=== PATIENT | male | born 1950 | race Caucasian/White ===

== ENCOUNTER 2016-10-19 14:40 | Inpatient (IN) | payer OTHER ==
[2016-10-19] MEDS ORDERED: SODIUM CHLORIDE 500 ML IV STA ×3 (15:58→18:37)
--- NOTE | 2016-10-19 15:59 | PDOC ---
History of Present Illness - General Chief Complaint: SIRS, Suspected/Possible Stated Complaint: FEVER Time Seen by Provider: 10/19/16 15:09 History Source: Patient Exam Limitations: No Limitations - History of Present Illness Initial Comments: 10/19/16 16:00 Patient is a 66 year old male with history of completely heart block s/p pacemaker, htn, and rheumatic fever here today complaining of fever. He became ill before leaving for [facility] on 09/18. While there, he continued to have fevers and a cough. He went to a hospital in [facility], where he was diagnosed with a pyogenic liver abscess. He was treated with ciprofloxacin PO and ceftriaxone IV for 5 days before leaving [facility] for [place] to be treated. Today, his only direct complaints are cough, fever, chills, nausea, and vomiting. He denies chest pain, abdominal pain, leg pain, hemoptysis and prior clotting problems. The cough was present before his flight to and from [facility] and was never bloody. Past History - Past Medical History Allergies/Adverse Reactions: Allergies Allergy/AdvReac Type Severity Reaction Status Date / Time No Known Allergies Allergy Verified 10/19/16 14:44 Home Medications: Ambulatory Orders Esomeprazole Magnesium 40 mg PO DAILY 10/19/16 Hydroxyzine HCl [Atarax -] 25 mg PO DAILY 10/19/16 Losartan 50Mg/Hctz 12.5MG [Hyzaar -] 1 tab PO DAILY 10/19/16 Omeprazole 20 mg PO DAILY 10/19/16 Cardiac Disorders: Yes GI Disorders: Yes (GERD) HTN: Yes - Surgical History Cardiac Surgery: Yes (PPM , COMPLETE H.BLOCK) - Psycho/Social/Smoking Cessation Hx Anxiety: No Suicidal Ideation: No Smoking History: Never smoked Have you smoked in the past 12 months: Yes Information on smoking cessation initiated: Yes Hx Alcohol Use: No Drug/Substance Use Hx: No Substance Use Type: None Review of Systems - Review of Systems Constitutional: Yes: Chills, Fever, Weakness HEENTM: No: Blurred Vision, Recent change in vision Respiratory: Yes: Cough. No: Shortness of Breath, Hemoptysis Cardiac (ROS): No: Chest Pain, Edema ABD/GI: Yes: Nausea, Vomiting (non-bloody emesis 1 week ago). No: Constipated, Diarrhea : No: Burning, Dysuria Integumentary: Yes: Sweating. No: Pallor Neurological: Yes: Headache, Weakness *Physical Exam - Vital Signs Last Vital Signs Temp Pulse Resp BP Pulse Ox 100.7 F H 132 H 22 132/88 100 10/19/16 14:45 10/19/16 14:45 10/19/16 14:45 10/19/16 14:45 10/19/16 14:45 - Physical Exam Comments: 10/19/16 16:40 Gen: Ill appearing, sitting in wheel chair holding arms around belly with jacket on HEENT: Atraumatic normocephalic, no scleral icterus Skin: No jaundice, rashes CV: Tachycardic, regular, no murmurs rubs, s/p pacemaker Lungs: Clear to auscultation bilaterally, tachypneic Abdomen: Soft, nontender, normal bowel sounds, no rosales's sign Ext: Well perfused, 2+ pulses in lower extremities bilaterally Neuro: Alert, oriented, no focal neuro deficits, CN2-12 intact ED Treatment Course - LABORATORY CBC & Chemistry Diagram: 10/19/16 15:44 10/19/16 15:44 Medical Decision Making - Medical Decision Making 10/19/16 17:14 Patient is a 66M with history of complete HB s/p pacemaker and HTN here today complaining of fever. Vital signs show fever, tachycardia and tachypnea. SIRS and Sepsis criteria met. No chest pain, altered mental status, or abdominal pain. Differential includes: liver abscess, pneumonia, empyema, and pulmonary embolism. Septic workup and CTA chest ordered. 500 ml fluids given. 10/19/16 18:25 Lactate of 4.2, white count elevated. Fluids still running, ordered another 500 ml. Doing 500 ml boluses with frequent reassessment due to patient's home lasix use and history of heart block. Total fluids given 500ml, about half of second 500 ml given. Cr at 1.5. Cr redrawn after fluid bolus. 10/19/16 19:00 Patient signed out to Dr Orta. Deisy to 110, no longer tachypneic. Cr pending. Fluids ordered. *DC/Admit/Observation/Transfer Diagnosis at time of Disposition: Severe sepsis - Attestations Physician Attestion: I, Dr. Gaston Mendoza, attest that this document has been prepared under my direction and personally reviewed by me in its entirety. I further attest, that it accurately reflects all work, treatment, procedures and medical decision -making performed by me.
[2016-10-19] MEDS ORDERED: MAG HYDROX/AL HYDROX/SIMETH 30 ML UNIT-DOSE CUP PO ONE (16:20)
[2016-10-19] MEDS ORDERED: LIDOCAINE VISCOUS 2% ORAL/TOP 20 ML UNIT-DOSE CUP MM ONE (16:20)
[2016-10-19 16:36] LABS: VENOUS PH 7.36 (7.32-7.42)
[2016-10-19 16:37] LABS: VENOUS BLOOD GAS HCO3 27.4 meq/L (19-25)
[2016-10-19] MEDS ORDERED: MAG HYDROX/AL HYDROX/SIMETH 30 ML UNIT-DOSE CUP ONE (16:42)
[2016-10-19 16:48] LABS: BASOPHIL 1.2 % (0-2.0); EOSINOPHIL 0.9 % (0-4.5); MCH 27.8 pg (25.7-33.7); MCHC 32.3 g/dl (32.0-35.9); MEAN CELL VOLUME 86.2 fl (80-96); MEAN PLT VOLUME 7.4 fl (7.5-11.1); PLATELET COUNT 649 K/MM3 (134-434); RDW 14.2 % (11.9-15.9)
[2016-10-19 17:04] LABS: INR 1.27 (0.82-1.09)
[2016-10-19 17:06] LABS: ACTIVATED PTT 32.9 SECONDS (26.9-34.4)
[2016-10-19 17:14] LABS: URINE APPEARANCE CLEAR; URINE BILIRUBIN NEGATIVE (NEGATIVE); URINE BLOOD NEGATIVE (NEGATIVE); URINE COLOR YELLOW; URINE GLUCOSE (UA) NEGATIVE (NEGATIVE); URINE KETONE NEGATIVE (NEGATIVE); URINE LEUK ESTERASE NEGATIVE (NEGATIVE); URINE NITRITE NEGATIVE (NEGATIVE); URINE PROTEIN NEGATIVE (NEGATIVE); URINE UROBILINOGEN NEGATIVE mg/dL (0.2-1.0)
[2016-10-19 17:19] LABS: ALBUMIN 2.3 g/dl (3.4-5.0); ALK PHOS 296 U/L (45-117); ANION GAP 10 (8-16); BILIRUBIN,TOTAL 0.4 mg/dL (0.2-1.0); CO2 26 mmol/L (21-32); CREATININE 1.5 mg/dL (0.7-1.3); GLUCOSE,RANDOM 146 mg/dL (74-106); SGOT/AST 37 U/L (15-37); SGPT/ALT 37 U/L (12-78); TOT PROT 10.4 g/dl (6.4-8.2)
--- NOTE | 2016-10-19 17:37 | PDOC ---
Attending Attestation - Resident Resident Name: Gaston Mendoza - ED Attending Attestation I have performed the following: I have examined & evaluated the patient, The case was reviewed & discussed with the resident, I agree w/resident's findings & plan, Exceptions are as noted - HPI HPI: 10/19/16 17:29 66 yo M h/o PPM due to complete heart block Pt presents to the ER with a complaint of fevers pt was ill prior to traveling to 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 He is unsure if he has had any exposures to any infectious or environmental toxins 10/19/16 17:30 - Physicial Exam PE: 10/19/16 17:37 RRR CTA No chest wall tenderness to palpation no abdominal tenderness to palpation no guarding No rebound no rash - Medical Decision Making 10/19/16 17:38 Will do: Labs CT abd and pelvis (Eval for liver absces) CTA chest IV Fluids Antipyretics Likely admission 10/19/16 17:39 Laboratory Tests 10/19/16 10/19/16 10/19/16 15:44 15:44 15:44 WBC 13.0 H Hgb 11.6 L Hct 36.0 Plt Count 649 H INR 1.27 H VBG pH POC VBG pCO2 POC VBG pO2 Sodium 133 L Potassium 4.2 Chloride 97 L Carbon Dioxide 26 BUN 21 H Creatinine 1.5 H Random Glucose 146 H 10/19/16 16:33 WBC Hgb Hct Plt Count INR VBG pH 7.36 POC VBG pCO2 50.4 POC VBG pO2 15.1 L* Sodium Potassium Chloride Carbon Dioxide BUN Creatinine Random Glucose 10/19/16 17:39 Creatinine slightly elevated will hydrate and re assess Would like to do contrast study 10/19/16 21:56 CT had been down for repairs Pt is FINALLY on the CT table Peripheral IV not working Nurse notified CT demonstrates 9.7cm diameter liver abscess No evidence of PE Will give Zosyn and Flagyl po Admit to hospitalist Discharge Disposition - Diagnosis Severe sepsis, Liver abscess - Discharge Dispostion Condition at time of disposition: Stable Admit: Yes - Referrals - Patient Instructions - Post Discharge Activity
[2016-10-19] MEDS ORDERED: ACETAMINOPHEN 1000 MG/100 ML VIAL (NON FORMULARY) IVPB ONE (17:40)
[2016-10-19 17:52] LABS: TROPONIN I < 0.02 ng/ml (0.00-0.05)
[2016-10-19] MEDS ORDERED: ACETAMINOPHEN INJECTION 100 ML IVPB ONE (17:55)
[2016-10-19 19:00] LABS: ANION GAP 8 (8-16); CALCIUM 7.7 mg/dL (8.5-10.1); CO2 26 mmol/L (21-32); CREATININE 1.3 mg/dL (0.7-1.3); GLUCOSE,RANDOM 99 mg/dL (74-106)
--- NOTE | 2016-10-19 19:05 | PDOC ---
*Physical Exam - Vital Signs Last Vital Signs Temp Pulse Resp BP Pulse Ox 100.7 F H 120 H 16 126/78 98 10/19/16 14:45 10/19/16 17:30 10/19/16 17:30 10/19/16 17:30 10/19/16 17:30 - Physical Exam Comments: 10/19/16 19:56 General Appearance: Nourished. No Apparent Distress HEENT: No Pharyngeal Erythema, Tonsillar Exudate, Tonsillar Erythema Respiratory/Chest: Lungs Clear, Normal Breath Sounds. No Crackles, Rales, Rhonchi, Wheezing Cardiovascular: Regular Rhythm, Regular Rate. No Murmur, Gallop/S3, Gallop/S4 Gastrointestinal/Abdominal: Normal Bowel Sounds, Soft. No Guarding, Rebound, Tenderness, Hepatomegaly, Spleenomegaly Extremity: Normal Capillary Refill. No Coldness, Cyanosis Integumentary: Normal Color, Dry, Warm Neurologic: Fully Oriented, Alert, Normal Mood/Affect, Normal Response ED Treatment Course - LABORATORY CBC & Chemistry Diagram: 10/19/16 15:44 10/19/16 18:23 - ADDITIONAL ORDERS Additional order review: Laboratory Results 10/19/16 10/19/16 10/19/16 16:33 16:17 15:44 INR PTT (Actin FS) VBG pH 7.36 POC VBG pCO2 50.4 POC VBG pO2 15.1 L* Mixed VBG HCO3 27.4 H Sodium Potassium Chloride Carbon Dioxide Anion Gap BUN Creatinine Creat Clearance w eGFR Random Glucose Lactic Acid 4.2 H* Calcium Total Bilirubin AST ALT Alkaline Phosphatase Creatine Kinase 40 Troponin I < 0.02 Total Protein Albumin Urine Color Urine Appearance Urine pH Urine Protein Urine Glucose (UA) Urine Ketones Urine Blood Urine Nitrite Urine Bilirubin Urine Urobilinogen Ur Leukocyte Esterase Blood Type Antibody Screen Spec Expiration Date 10/19/16 10/19/16 10/19/16 15:44 15:44 15:44 INR PTT (Actin FS) VBG pH POC VBG pCO2 POC VBG pO2 Mixed VBG HCO3 Sodium 133 L Potassium 4.2 Chloride 97 L Carbon Dioxide 26 Anion Gap 10 BUN 21 H Creatinine 1.5 H Creat Clearance w eGFR 47.12 Random Glucose 146 H Lactic Acid Calcium 9.0 Total Bilirubin 0.4 AST 37 ALT 37 Alkaline Phosphatase 296 H Creatine Kinase Troponin I Total Protein 10.4 H Albumin 2.3 L Urine Color Yellow Urine Appearance Clear Urine pH 5.0 Urine Protein Negative Urine Glucose (UA) Negative Urine Ketones Negative Urine Blood Negative Urine Nitrite Negative Urine Bilirubin Negative Urine Urobilinogen Negative Ur Leukocyte Esterase Negative Blood Type Cancelled Antibody Screen Cancelled Spec Expiration Date Cancelled 10/19/16 15:44 INR 1.27 H PTT (Actin FS) 32.9 VBG pH POC VBG pCO2 POC VBG pO2 Mixed VBG HCO3 Sodium Potassium Chloride Carbon Dioxide Anion Gap BUN Creatinine Creat Clearance w eGFR Random Glucose Lactic Acid Calcium Total Bilirubin AST ALT Alkaline Phosphatase Creatine Kinase Troponin I Total Protein Albumin Urine Color Urine Appearance Urine pH Urine Protein Urine Glucose (UA) Urine Ketones Urine Blood Urine Nitrite Urine Bilirubin Urine Urobilinogen Ur Leukocyte Esterase Blood Type Antibody Screen Spec Expiration Date 10/19/16 15:44 RBC 4.18 MCV 86.2 MCHC 32.3 RDW 14.2 MPV 7.4 L Neutrophils % 74.0 Lymphocytes % 15.3 Monocytes % 8.6 Eosinophils % 0.9 Basophils % 1.2 - Medications Given in the ED: ED Medications Discontinued Medications Generic Name Dose Route Start Last Admin Trade Name Kgq PRN Reason Stop Dose Admin Acetaminophen 1,000 mg 10/19/16 17:40 10/19/16 18:06 Ofirmev Injection - IVPB 10/19/16 17:41 1,000 mg ONCE ONE Administration Al Hydroxide/Mg Hydroxide 30 ml 10/19/16 16:20 10/19/16 16:49 Mylanta Oral Suspension - PO 10/19/16 16:21 30 ml ONCE ONE Administration Sodium Chloride 500 mls @ 500 mls/hr 10/19/16 15:58 10/19/16 16:13 Normal Saline - IV 10/19/16 16:57 500 mls/hr ASDIR STA Administration Sodium Chloride 500 mls @ 500 mls/hr 10/19/16 17:28 10/19/16 17:31 Normal Saline - IV 10/19/16 18:27 500 mls/hr ASDIR STA Administration Lidocaine HCl 20 ml 10/19/16 16:20 10/19/16 16:50 Xylocaine 2% Viscous Oral - MM 10/19/16 16:21 20 ml ONCE ONE Administration Progress Note - Progress Note Progress Note: Received sign out from Dr. Mendoza. Patient is a 66 year old male with a history of heart block s/p pacemaker who presents with severe sepsis. Patient had recent travel to [facility] where he was seen at a hospital and was reportedly diagnosed with a pyogenic abscess in the liver. He has currently been getting 500 ml boluses of NS with clinical improvement. Lactate was elevated and WBC was elevated here in the ED. He is currently pending a CTA of the chest and CT abdomen/pelvis. He had an elevated creatinine and as long as his repeat creatinine is lower than 1.5, he can go to CT. If his repeat creatinine is 1.5 or higher, he is to receive another 500ml bolus of fluids. Continue to reassess after fluid boluses. Medical Decision Making - Medical Decision Making 10/19/16 19:25 Patient's repeat lactate improved to 1.8 after fluid boluses. Patient looks clinically improved. Patient's repeat creatinine is improved to 1.3. CT is aware and will bring the patient for his scans when ready. 10/20/16 01:51 CT scan preliminary read showed a 9.7 cm amebic abscess in the right lobe of the liver. Will admit to the hospital for treatment. We will give flagyl to cover for the possibility of an amebic abscess and will give zosyn to cover possibility of a pyogenic abscess. *DC/Admit/Observation/Transfer Diagnosis at time of Disposition: Severe sepsis, Liver abscess - Discharge Dispostion Condition at time of disposition: Stable - Referrals - Attestations Physician Attestion: 10/20/16 01:54 I, Dr. Jeremy Orta, attest that this document has been prepared under my direction and personally reviewed by me in its entirety. I further attest, that it accurately reflects all work, treatment, procedures and medical decision -making performed by me.
--- NOTE | 2016-10-20 00:01 | HP ---
CHIEF COMPLAINT: fevers PCP: Dr. Padron Cardiology: dr. Alexander HISTORY OF PRESENT ILLNESS: 66 yr old man c/o fevers and malaise for past month. Arrived from [facility] after being treated for fevers and liver abscess since September 19-. He was last in usual state of health approx September 14 when he felt "ill" (unable to describe in detail what "ill" meant). He began to have fevers on September 16 and flew to [facility] on the . He began to have fevers, cough and right upper chest pain. He was admitted to a hospital with fevers of 41-42deg Celsius on September 20. He was found to have lesions in his liver on CT scan that were thought to be pyogenic liver abscesses. He was treated with IV cefatriaxone 1 g, (copies of hospital labs and discharge note in chart). He says his fevers always escalated at 5pm after being low-grade all day, it would continue climbing and was unaffected with tylenol. His right upper chest pain was sharp, nonradiating, able to pinpoint, worse with cough/sneeze/hiccup. Cough was initially dry and then would be scantily productive of white nonbloody sputum. Since September 14 his appetite has been poor, and he feels that he lost 8-9 kgs in the last month. Denies AMS, neurological deficits, n/v, diarrhea/constipation, changes in diet/ new foods, new exposures, recent farm animal exposure, no hx of previous episodes, recent abx use. He was an active person, able to job 8-9km daily last year, until the pacemaker was placed. approx one month ago he developed b/l lower extremity for which his PCP started him on hyzaar. ER course was notable for: (1) abdominal CT - read by adelaida as amebic abscess (2) chest CT - no caviitary lesions (3) leucocytosis/lactic acidosis Recent Travel: [facility] September 18-October 19, visited [place] jan 05 2016, [place] for 4-5 months recently. 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 moved [place] in [place]. 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 Smoking: >40 yrs 2-3 cigs per day Alcohol: socially, no hx of abuse/seizure/withdrawal DT's, last drink september 14 Drugs: denies Family History: father and paternal uncle with BPH, father due to renal failure from BPH. no family hx of TB Allergies No Known Allergies Allergy (Verified 10/19/16 14:44) HOME MEDICATIONS: Home Medications Medication Instructions Recorded Esomeprazole Magnesium 40 mg PO DAILY 10/19/16 Hydroxyzine HCl [Atarax -] 25 mg PO DAILY 10/19/16 Losartan 50Mg/Hctz 12.5MG [Hyzaar 1 tab PO DAILY 10/19/16 -] Omeprazole 20 mg PO DAILY 10/19/16 REVIEW OF SYSTEMS CONSTITUTIONAL: Present: fever,generalized weakness, loss of appetite,weight change Absent: chills, diaphoresis, malaise, HEENT: Absent: rhinorrhea, nasal congestion, throat pain, throat swelling, difficulty swallowing, mouth swelling, ear pain, eye pain, visual changes CARDIOVASCULAR: Absent: chest pain, syncope, palpitations, lightheadedness, peripheral edema RESPIRATORY: Present: cough, Absent: shortness of breath, dyspnea with exertion, orthopnea, wheezing, stridor , hemoptysis GASTROINTESTINAL: Absent: abdominal pain, abdominal distension, nausea, vomiting, diarrhea, constipation, melena, hematochezia GENITOURINARY: Absent: dysuria, frequency, urgency, hesitancy, hematuria, flank pain, genital pain MUSCULOSKELETAL: Absent: myalgia, arthralgia, joint swelling, back pain, neck pain SKIN: Present: itching rash on forehead Absent: rash, pallor HEMATOLOGIC/IMMUNOLOGIC: Absent: easy bleeding, easy bruising, lymphadenopathy, frequent infections ENDOCRINE: Absent: unexplained weight gain, unexplained weight loss, heat intolerance, cold intolerance NEUROLOGIC: Absent: headache, focal weakness or paresthesias, dizziness, unsteady gait, seizure, mental status changes, bladder or bowel incontinence PSYCHIATRIC: Absent: anxiety, depression, suicidal or homicidal ideation, hallucinations. PHYSICAL EXAMINATION Vital Signs - 24 hr 10/19/16 10/19/16 14:45 17:30 Temperature 100.7 F H Pulse Rate 132 H Pulse Rate [ 120 H Left Apical] Respiratory 22 16 Rate Blood Pressure 132/88 Blood Pressure 126/78 [Left Arm] O2 Sat by Pulse 100 98 Oximetry (%) GENERAL: Awake, alert, and fully oriented, in no acute distress. HEAD: Normal with no signs of trauma. EYES: Pupils equal, round and reactive to light, extraocular movements intact, sclera anicteric, conjunctiva clear. No lid lag. EARS, NOSE, THROAT: Ears normal, nares patent, oropharynx clear without exudates. Moist mucous membranes. NECK: Normal range of motion, supple without lymphadenopathy, JVD, or masses. LUNGS: Breath sounds equal, clear to auscultation bilaterally. No wheezes, and no crackles. No accessory muscle use. HEART: Regular rate and rhythm, normal S1 and S2 without murmur, rub or gallop. CHEST: left upper chest with palpable pacemaker - skin intact ABDOMEN: Soft, nontender, not distended, normoactive bowel sounds, no guarding, no rebound, no masses. MUSCULOSKELETAL: Normal range of motion at all joints. No bony deformities or tenderness. No CVA tenderness. UPPER EXTREMITIES: 2+ radial pulses, warm, well-perfused. No cyanosis. No clubbing. No peripheral edema. no tapia spots. LOWER EXTREMITIES: 2+ DP pulses, warm, well-perfused. No calf tenderness. No peripheral edema. NEUROLOGICAL: Cranial nerves II-XII intact. Normal speech. Normal gait. PSYCHIATRIC: Cooperative. Good eye contact. Appropriate mood and affect. SKIN: Warm, dry, normal turgor, hyperpigmented(dark brown) macules on forehead with skin intact/no erythema. Laboratory Results - last 24 hr 10/19/16 10/19/16 10/19/16 15:44 15:44 15:44 WBC 13.0 H RBC 4.18 Hgb 11.6 L Hct 36.0 MCV 86.2 MCH 27.8 MCHC 32.3 RDW 14.2 Plt Count 649 H MPV 7.4 L Neutrophils % 74.0 Lymphocytes % 15.3 Monocytes % 8.6 Eosinophils % 0.9 Basophils % 1.2 INR 1.27 H PTT (Actin FS) 32.9 VBG pH POC VBG pCO2 POC VBG pO2 Mixed VBG HCO3 Sodium Potassium Chloride Carbon Dioxide Anion Gap BUN Creatinine Creat Clearance w eGFR Random Glucose Lactic Acid Calcium Total Bilirubin AST ALT Alkaline Phosphatase Creatine Kinase Troponin I Total Protein Albumin Urine Color Yellow Urine Appearance Clear Urine pH 5.0 Ur Specific [place] 1.020 Urine Protein Negative Urine Glucose (UA) Negative Urine Ketones Negative Urine Blood Negative Urine Nitrite Negative Urine Bilirubin Negative Urine Urobilinogen Negative Ur Leukocyte Esterase Negative Blood Type Antibody Screen Spec Expiration Date 10/19/16 10/19/16 10/19/16 15:44 15:44 15:44 WBC RBC Hgb Hct MCV MCH MCHC RDW Plt Count MPV Neutrophils % Lymphocytes % Monocytes % Eosinophils % Basophils % INR PTT (Actin FS) VBG pH POC VBG pCO2 POC VBG pO2 Mixed VBG HCO3 Sodium 133 L Potassium 4.2 Chloride 97 L Carbon Dioxide 26 Anion Gap 10 BUN 21 H Creatinine 1.5 H Creat Clearance w eGFR 47.12 Random Glucose 146 H Lactic Acid 4.2 H* Calcium 9.0 Total Bilirubin 0.4 AST 37 ALT 37 Alkaline Phosphatase 296 H Creatine Kinase Troponin I Total Protein 10.4 H Albumin 2.3 L Urine Color Urine Appearance Urine pH Ur Specific [place] Urine Protein Urine Glucose (UA) Urine Ketones Urine Blood Urine Nitrite Urine Bilirubin Urine Urobilinogen Ur Leukocyte Esterase Blood Type Cancelled Antibody Screen Cancelled Spec Expiration Date Cancelled 10/19/16 10/19/16 10/19/16 16:17 16:33 18:23 WBC RBC Hgb Hct MCV MCH MCHC RDW Plt Count MPV Neutrophils % Lymphocytes % Monocytes % Eosinophils % Basophils % INR PTT (Actin FS) VBG pH 7.36 POC VBG pCO2 50.4 POC VBG pO2 15.1 L* Mixed VBG HCO3 27.4 H Sodium Potassium Chloride Carbon Dioxide Anion Gap BUN Creatinine Creat Clearance w eGFR Random Glucose Lactic Acid 1.8 Calcium Total Bilirubin AST ALT Alkaline Phosphatase Creatine Kinase 40 Troponin I < 0.02 Total Protein Albumin Urine Color Urine Appearance Urine pH Ur Specific [place] Urine Protein Urine Glucose (UA) Urine Ketones Urine Blood Urine Nitrite Urine Bilirubin Urine Urobilinogen Ur Leukocyte Esterase Blood Type Antibody Screen Spec Expiration Date 10/19/16 18:23 WBC RBC Hgb Hct MCV MCH MCHC RDW Plt Count MPV Neutrophils % Lymphocytes % Monocytes % Eosinophils % Basophils % INR PTT (Actin FS) VBG pH POC VBG pCO2 POC VBG pO2 Mixed VBG HCO3 Sodium 134 L Potassium 3.6 Chloride 100 Carbon Dioxide 26 Anion Gap 8 BUN 19 H Creatinine 1.3 Creat Clearance w eGFR Random Glucose 99 D Lactic Acid Calcium 7.7 L Total Bilirubin AST ALT Alkaline Phosphatase Creatine Kinase Troponin I Total Protein Albumin Urine Color Urine Appearance Urine pH Ur Specific [place] Urine Protein Urine Glucose (UA) Urine Ketones Urine Blood Urine Nitrite Urine Bilirubin Urine Urobilinogen Ur Leukocyte Esterase Blood Type Antibody Screen Spec Expiration Date ASSESSMENT/PLAN: 66 yr old man with hx of compelte heart block presents with continuous fevers for one month found to have liver lesions admitted to [facility] for severe sepsis likely due to liver abscesses. #Severe sepsis(wbc, fever, lactic acidosis, leucocytosis) likely due to liver abscess, read on CT as amebic - lactic acidosis resolved - started on zosyn, 3.375gm ivpb q8hr and po flagyl 750mg daily started in ED to broad spec coverage for antibacterial and anti-ambeic - r/o causes of liver abscess: - echinococcus, quantiferon for TB, entamoea histolytica, blood parasite smear for malarial species - r/o HIV (patient consented) - consult IR for possible drainage - pt currently hemodynamically stable with lft's wnl, Gi for further evaluation - ID consult Dr. David #Hyponatremia - likely from poor po intake, improved with IVF #Wide gap between total protein and albumin, consider SPEP work-up for myelodysplastic conditions # normocytic anemia, no overt signs of bleeding, will add anemia work-up for further investigation # LE Edema(no edema currently) - continue Hyzaar (home medication) DVT - SCD's for now, may need surgical intervention defer pharm ac for now Diet: low sodium Visit type - Emergency Visit Emergency Visit: Yes ED Registration Date: 10/19/16 Care time: The patient presented to the Emergency Department on the above date and was hospitalized for further evaluation of their emergent condition. - New Patient This patient is new to me today: Yes Date on this admission: 10/19/16 - Critical Care Critical Care patient: No
[2016-10-20] MEDS ORDERED: metroNIDAZOLE 500 MG TABLET PO ONE (00:17)
[2016-10-20] MEDS ORDERED: PIPERACILLIN/TAZOB 3.375 GM/50 ML PRE-DOCKED IVPB ONE (00:18)
[2016-10-20] MEDS ORDERED: guaiFENesin 200 MG/10 ML 10 ML UNIT-DOSE CUPS PO ONE (01:50)
--- NOTE | 2016-10-20 04:22 | PN ---
Teaching Attending Note Name of Resident: Jaimie Vazquez ATTENDING PHYSICIAN STATEMENT I saw and evaluated the patient. I reviewed chart, data, imaging I reviewed the resident's note and discussed the case with the resident. I agree with the resident's findings and plan as documented except for modifications below SUBJECTIVE: 66yo male originally from [place], c/o fevers and chills x1 month, recent travel to [facility] in September 2016. Admitted to hospital there, and found to have liver abscess which was treated with ceftriaxone and not drained. [place] and saught medical attention as fever has not improved. He has some subjective weight loss and a nonproductive cough. 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 He has a puppy at home. Denied any sick contacts. Denied history of TB or exposure to anyone with TB. OBJECTIVE: Last Vital Signs Temp Pulse Resp BP Pulse Ox 98.8 F 82 18 120/79 99 10/20/16 06:16 10/20/16 06:16 10/20/16 06:16 10/20/16 06:16 10/20/16 06:16 HEENT perrla, AT, NC, moist oral mucosa Neck supple, no masses CV-s1+s2+ RRR Chest- CTA b/l, no wheezing, no crackles Abdomen- soft, NT, no masses appreciated Skin- no rashes LAD- no lymphadenpopathy Laboratory Last Values WBC 9.4 K/mm3 (4.0-10.0) 10/20/16 06:05 RBC 3.59 M/mm3 (4.00-5.60) L 10/20/16 06:05 Hgb 10.0 GM/dL (11.7-16.9) L D 10/20/16 06:05 Hct 30.3 % (35.4-49) L D 10/20/16 06:05 MCV 84.4 fl (80-96) 10/20/16 06:05 MCH 27.9 pg (25.7-33.7) 10/20/16 06:05 MCHC 33.0 g/dl (32.0-35.9) 10/20/16 06:05 RDW 14.3 % (11.9-15.9) 10/20/16 06:05 Plt Count 490 K/MM3 (134-434) H D 10/20/16 06:05 MPV 7.0 fl (7.5-11.1) L 10/20/16 06:05 Neutrophils % 68.2 % (42.8-82.8) 10/20/16 06:05 Lymphocytes % 20.9 % (8-40) D 10/20/16 06:05 Monocytes % 9.0 % (3.8-10.2) 10/20/16 06:05 Eosinophils % 0.8 % (0-4.5) 10/20/16 06:05 Basophils % 1.1 % (0-2.0) 10/20/16 06:05 INR 1.27 (0.82-1.09) H 10/19/16 15:44 PTT (Actin FS) 32.9 SECONDS (26.9-34.4) 10/19/16 15:44 VBG pH 7.36 (7.32-7.42) 10/19/16 16:33 POC VBG pCO2 50.4 mmHg (38-52) 10/19/16 16:33 POC VBG pO2 15.1 mmHg (28-48) L* 10/19/16 16:33 Mixed VBG HCO3 27.4 meq/L (19-25) H 10/19/16 16:33 Sodium 135 mmol/L (136-145) L 10/20/16 06:05 Potassium 3.9 mmol/L (3.5-5.1) 10/20/16 06:05 Chloride 100 mmol/L (98-107) 10/20/16 06:05 Carbon Dioxide 27 mmol/L (21-32) 10/20/16 06:05 Anion Gap 8 (8-16) 10/20/16 06:05 BUN 15 mg/dL (7-18) D 10/20/16 06:05 Creatinine 1.1 mg/dL (0.7-1.3) 10/20/16 06:05 Creat Clearance w eGFR > 60 (>60) 10/20/16 06:05 Random Glucose 94 mg/dL (74-106) 10/20/16 06:05 Lactic Acid 1.8 mmol/L (0.4-2.0) 10/19/16 18:23 Calcium 8.0 mg/dL (8.5-10.1) L 10/20/16 06:05 Total Bilirubin 0.6 mg/dL (0.2-1.0) D 10/20/16 06:05 AST 29 U/L (15-37) D 10/20/16 06:05 ALT 28 U/L (12-78) D 10/20/16 06:05 Alkaline Phosphatase 220 U/L (45-117) H D 10/20/16 06:05 Creatine Kinase 40 IU/L (39-308) 10/19/16 16:17 Troponin I < 0.02 ng/ml (0.00-0.05) 10/19/16 16:17 Total Protein 8.5 g/dl (6.4-8.2) H 10/20/16 06:05 Albumin 1.9 g/dl (3.4-5.0) L 10/20/16 06:05 Urine Color Yellow 10/19/16 15:44 Urine Appearance Clear 10/19/16 15:44 Urine pH 5.0 (5.0-8.0) 10/19/16 15:44 Ur Specific [place] 1.020 (1.005-1.025) 10/19/16 15:44 Urine Protein Negative (NEGATIVE) 10/19/16 15:44 Urine Glucose (UA) Negative (NEGATIVE) 10/19/16 15:44 Urine Ketones Negative (NEGATIVE) 10/19/16 15:44 Urine Blood Negative (NEGATIVE) 10/19/16 15:44 Urine Nitrite Negative (NEGATIVE) 10/19/16 15:44 Urine Bilirubin Negative (NEGATIVE) 10/19/16 15:44 Urine Urobilinogen Negative mg/dL (0.2-1.0) 10/19/16 15:44 Ur Leukocyte Esterase Negative (NEGATIVE) 10/19/16 15:44 Blood Type Cancelled 10/19/16 15:44 Antibody Screen Cancelled 10/19/16 15:44 Spec Expiration Date Cancelled 10/19/16 15:44 ASSESSMENT AND PLAN: #Right hepatic lobe abscess -9.7cm associated with fevers x1 month. Differential diagnosis includes but is not limited to bacterial abscess, entamoeba histolytica, or echinococcosis liver cyst, mycobacterium tuberculosis. S/p zosyn and metronidazole in ER. Should r/o other causes of fever such as tick borne infection, bacteremia. -admit to med/surg -blood cultures x2 -UA, urine culture -blood parasite smear -ecchinococcosis serology -Lyme serology -IR guided drainage of liver abscess, send for bacterial aerobic, anaerobic, fungal, and AFB cultures -ID consult -continue zosyn and metronidazole -send Quantiferon Gold as patient is from [facility] Diet- regular diet DVT ppx- SCDs
[2016-10-20] MEDS ORDERED: TUBERCULIN PPD 5 TU/0.1ML SYRINGE (IN PATIENT USE ONLY) ID ONE (05:10)
[2016-10-20] MEDS ORDERED: metroNIDAZOLE 250 MG TABLET ONE (05:12)
[2016-10-20] MEDS ORDERED: guaiFENesin 200 MG/10 ML 10 ML UNIT-DOSE CUPS ONE (05:12)
[2016-10-20] MEDS ORDERED: PIPERACILLIN/TAZOB 3.375 GM 50 ML IVPB ONE (05:13)
[2016-10-20 06:16] LABS: BASOPHIL 1.1 % (0-2.0); EOSINOPHIL 0.8 % (0-4.5); MCH 27.9 pg (25.7-33.7); MEAN CELL VOLUME 84.4 fl (80-96); NEUTROPHILS 68.2 % (42.8-82.8); PLATELET COUNT 490 K/MM3 (134-434); RDW 14.3 % (11.9-15.9); WHITE BLOOD COUNT 9.4 K/mm3 (4.0-10.0)
[2016-10-20 06:40] LABS: ALBUMIN 1.9 g/dl (3.4-5.0); ALK PHOS 220 U/L (45-117); ANION GAP 8 (8-16); BILIRUBIN,TOTAL 0.6 mg/dL (0.2-1.0); CO2 27 mmol/L (21-32); CREATININE 1.1 mg/dL (0.7-1.3); GLUCOSE,RANDOM 94 mg/dL (74-106); SGOT/AST 29 U/L (15-37); SGPT/ALT 28 U/L (12-78); TOT PROT 8.5 g/dl (6.4-8.2)
--- NOTE | 2016-10-20 11:09 | PN ---
Physical Exam: SUBJECTIVE: Patient seen and examined. He complains of a dry cough. OBJECTIVE: Vital Signs Period Temp Pulse Resp BP Sys/Taylor Pulse Ox Last 24 Hr 98.2 F-99 F 80-84 18-18 120-128/78-79 99-100 GENERAL: The patient is awake, alert, and fully oriented, in no acute distress. NECK: Supple. LUNGS: Breath sounds equal, clear to auscultation bilaterally, no wheezes, no crackles, no accessory muscle use. HEART: Regular rate and rhythm, S1, S2 without murmur, rub or gallop. ABDOMEN: Soft, nontender, nondistended, normoactive bowel sounds, no guarding, no rebound, no hepatosplenomegaly, no masses. EXTREMITIES: 2+ pulses, warm, well-perfused, no edema. Laboratory Results - last 24 hr 10/20/16 10/20/16 06:05 06:05 WBC 9.4 RBC 3.59 L Hgb 10.0 L D Hct 30.3 L D MCV 84.4 MCH 27.9 MCHC 33.0 RDW 14.3 Plt Count 490 H D MPV 7.0 L Neutrophils % 68.2 Lymphocytes % 20.9 D Monocytes % 9.0 Eosinophils % 0.8 Basophils % 1.1 Sodium 135 L Potassium 3.9 Chloride 100 Carbon Dioxide 27 Anion Gap 8 BUN 15 D Creatinine 1.1 Creat Clearance w eGFR > 60 Random Glucose 94 Calcium 8.0 L Total Bilirubin 0.6 D AST 29 D ALT 28 D Alkaline Phosphatase 220 H D Total Protein 8.5 H Albumin 1.9 L Active Medications Generic Name Dose Route Start Last Admin Trade Name Freq PRN Reason Stop Dose Admin HCTZ/Losartan Potassium 1 tab 10/20/16 10:00 Hyzaar - PO DAILY CHRISTEN ASSESSMENT/PLAN: This is a 66-year-old man with a history of rheumatic fever, complete heart block who presented to the ER with fevers x 1 month. 1. Severe sepsis secondary to liver abscess - Zosyn, Flagyl given - Lactic acidemia improved - IR for possible drainage - ID consult - Quantiferon gold, HIV, Echinococcus Ab, parasite smear, Entamoeba Ab ordered 2. Dehydration with mild hyponatremia - Improved with IV fluid 3. Anemia - Check iron studies, B12, folate, TSH 4. HTN - Continue Hyzaar Visit type - Emergency Visit Emergency Visit: Yes ED Registration Date: 10/20/16 Care time: The patient presented to the Emergency Department on the above date and was hospitalized for further evaluation of their emergent condition. - New Patient This patient is new to me today: Yes Date on this admission: 10/20/16 - Critical Care Critical Care patient: No - Discharge Referral Referred to [facility] No
[2016-10-20 11:14] VITALS: BMI 27.1
[2016-10-20] MEDS: guaiFENesin/D-METHORPHAN HB 10 ML UNIT-DOSE CUPS PO PRN ×2 (12:17→20:30)
[2016-10-20 13:13] LABS: HIV 1 & 2 AB NEGATIVE; HIV 1 AGp24 NEGATIVE
--- NOTE | 2016-10-20 13:38 | PN ---
Progress Note (short form) - Note Progress Note: ID consult dictated imp/reccd 66 yo man with fevers since September 16. He travelled to [facility] to visit his daughter on September 18. He continued to have a fevers there with lethargy and weakness- he went to the hospital there and was started on a po antibiotic for four days possibly ciprofloxacin.. this was later changed to ceftriaxone and he was treated daily as an outpt. he continued to have fever. Ct scan was done showing a right lobe heterogeneous mass with samll adjacent lesions felt to be a liver abscess. The patient elected to leave [facility] and flew back to [place] and came directly to the hospital. he has nonproductive cough Ct scan imaging here with 10 by 10 by 13 cm cystic density with several satellite lesions- this was not present on a prior ct scan 01/2016! some weight loss- he is unable to quantitate denies history of TB or TB exposure last travel was several years ago to [facility] he is originally from [facility] ?liver abscess continue zosyn/flagyl amebic serology echinococcal serology quant gold stool ova and parasites GI consult cultures will review ct scan with IR on Saturday elevated total protein- should have HIV test, if negative, screen for Myeloma history of heart block- s/p PPM, check lyme serology d/w Dr Vazquez Problem List - Problems (1) Liver abscess Code(s): K75.0 - ABSCESS OF LIVER (2) Elevated total protein Code(s): R77.8 - OTHER SPECIFIED ABNORMALITIES OF PLASMA PROTEINS
[2016-10-20] MEDS: PIPERACILLIN/TAZOB 4.5 GM/100 ML PRE-DOCKED IVPB SCH ×2 (14:57→18:07)
[2016-10-20] MEDS: METRONIDAZOLE 500 MG PREMIXED 100 ML IVPB SCH ×2 (14:58→18:07)
[2016-10-20] MEDS: LOSARTAN 50MG/HCTZ 12.5MG 1 TAB (FP) PO SCH (18:07)
[2016-10-20] MEDS ORDERED: BENZOCAINE/MENTH/CETYLPYRD CL 1 EACH LOZENGE MM PRN (18:28)
[2016-10-20] MEDS: ACETAMINOPHEN 325 MG TABLET (FP) PO PRN (20:30)
[2016-10-21] MEDS: METRONIDAZOLE 500 MG PREMIXED 100 ML IVPB SCH ×3 (01:10→17:14)
[2016-10-21] MEDS: PIPERACILLIN/TAZOB 4.5 GM/100 ML PRE-DOCKED IVPB SCH ×3 (01:45→17:14)
[2016-10-21 06:15] LABS: BASOPHIL 1.2 % (0-2.0); EOSINOPHIL 2.2 % (0-4.5); MCH 28.3 pg (25.7-33.7); MCHC 33.1 g/dl (32.0-35.9); MEAN CELL VOLUME 85.5 fl (80-96); MEAN PLT VOLUME 7.2 fl (7.5-11.1); NEUTROPHILS 56.9 % (42.8-82.8); PLATELET COUNT 472 K/MM3 (134-434); RDW 14.3 % (11.9-15.9); WHITE BLOOD COUNT 7.2 K/mm3 (4.0-10.0)
[2016-10-21 06:41] LABS: ANION GAP 7 (8-16); CO2 30 mmol/L (21-32); CREATININE 1.2 mg/dL (0.7-1.3); GLUCOSE,RANDOM 84 mg/dL (74-106)
[2016-10-21 06:56] LABS: FERRITIN 711.367 ng/ml (16.4-293.9); THYROID STIMULATING HORMONE 1.94 uIU/ml (0.358-3.74)
[2016-10-21] MEDS ORDERED: PT OWN MED DRAWER 7, Y5N ONE (09:25)
[2016-10-21] MEDS: LOSARTAN 50MG/HCTZ 12.5MG 1 TAB (FP) PO SCH (09:48)
[2016-10-21] MEDS: guaiFENesin/D-METHORPHAN HB 10 ML UNIT-DOSE CUPS PO PRN ×2 (09:48→17:14)
--- NOTE | 2016-10-21 10:19 | PN ---
Physical Exam: SUBJECTIVE: Patient seen and examined No acute events overnight. Patient complaining of fever w/ occasional night sweats, cough, and new onset diarrhea. OBJECTIVE: Vital Signs Period Temp Pulse Resp BP Sys/Taylor Pulse Ox Last 24 Hr 97.1 F-100.5 F 72-107 15-20 105-119/72-82 99-99 GENERAL: Awake, alert, and fully oriented, in no acute distress. HEAD: Normal with no signs of trauma. EYES: Pupils equal, round and reactive to light, extraocular movements intact, sclera anicteric, conjunctiva clear. No lid lag. EARS, NOSE, THROAT: Oropharynx clear without exudates. Moist mucous membranes. NECK: Normal range of motion, supple without lymphadenopathy LUNGS: Breath sounds equal, clear to auscultation bilaterally. No wheezes, and no crackles. No accessory muscle use. HEART: Regular rate and rhythm, normal S1 and S2 without murmur, rub or gallop. ABDOMEN: Soft, nontender, not distended, normoactive bowel sounds, no guarding, no rebound, no masses. UPPER EXTREMITIES: 2+ radial pulses, warm, well-perfused. No cyanosis. No clubbing. No peripheral edema. no tapia spots. LOWER EXTREMITIES: Warm, well-perfused. No calf tenderness. No peripheral edema. NEUROLOGICAL: Cranial nerves II-XII intact. Normal speech. Normal gait. PSYCHIATRIC: Cooperative. Good eye contact. Appropriate mood and affect. Laboratory Results - last 24 hr 10/20/16 10/21/16 10/21/16 11:15 05:20 05:20 WBC RBC Hgb Hct MCV MCH MCHC RDW Plt Count MPV Neutrophils % Lymphocytes % Monocytes % Eosinophils % Basophils % Sodium 135 L Potassium 3.7 Chloride 98 Carbon Dioxide 30 Anion Gap 7 L BUN 13 Creatinine 1.2 Random Glucose 84 Calcium 8.0 L Ferritin 711.367 H Vitamin B12 429 Serum Folate 10 TSH 1.94 HIV 1&2 Antibody Screen Negative HIV P24 Antigen Negative 10/21/16 05:20 WBC 7.2 RBC 3.48 L Hgb 9.8 L Hct 29.8 L MCV 85.5 MCH 28.3 MCHC 33.1 RDW 14.3 Plt Count 472 H MPV 7.2 L Neutrophils % 56.9 Lymphocytes % 23.9 Monocytes % 15.8 H Eosinophils % 2.2 D Basophils % 1.2 Sodium Potassium Chloride Carbon Dioxide Anion Gap BUN Creatinine Random Glucose Calcium Ferritin Vitamin B12 Serum Folate TSH HIV 1&2 Antibody Screen HIV P24 Antigen Active Medications Generic Name Dose Route Start Last Admin Trade Name [place] PRN Reason Stop Dose Admin Acetaminophen 650 mg 10/20/16 18:28 10/20/16 20:30 Tylenol - PO 650 mg Q4H PRN Administration FEVER OR PAIN Benzocaine/Menthol 1 each 10/20/16 18:28 10/21/16 09:48 Cepacol Lozenge - MM 1 each PRN PRN Administration SORE THROAT Guaifenesin 10 ml 10/20/16 11:46 10/21/16 09:48 Robitussin Dm - PO 10 ml Q4H PRN Administration COUGH HCTZ/Losartan Potassium 1 tab 10/20/16 10:00 10/21/16 09:48 Hyzaar - PO 1 tab DAILY CHRISTEN Administration Metronidazole 100 mls @ 100 mls/hr 10/20/16 14:15 10/21/16 09:48 Flagyl 500mg Premixed Ivpb - IVPB 100 mls/hr Q8H-IV CHRISTEN Administration Piperacillin Sod/Tazobactam Sod 4.5 gm 10/20/16 14:15 10/21/16 09:48 Zosyn 4.5gm Ivpb (Pre-Docked) IVPB 4.5 gm Q8H-IV CHRISTEN Administration ASSESSMENT/PLAN: 66 yo M with PMH of complete heart block who presented to the ED with continuous fevers for one month found to have liver lesions admitted to telemetry for severe sepsis likely secondary to liver abscesses. #Severe sepsis likely secondary to liver abscess -On Zosyn 4.5 gm IVPB and Flagyl 500 mg IVPB -Lactic acidosis improved -Will go to IR for possible abscess drainage tomorrow -F/u amebic, echinococcal, quant gold, stool ova/parasites -HIV negative -Pulm consult for ongoing cough #Hyponatremia -Improved -135 today #Diarrhea -new onset -recent antibiotic use -C. Diff ag/toxin ordered #Anemia -Hgb 9.8 -Iron studies pending -Continue to monitor #HTN -Continue home medication (Hyzaar 50/12.5 1 tab PO daily) #DVT ppx -SCD's Visit type - Emergency Visit Emergency Visit: No - New Patient This patient is new to me today: Yes Date on this admission: 10/21/16 - Critical Care Critical Care patient: No
--- NOTE | 2016-10-21 11:54 | PN ---
Progress Note (short form) - Note Progress Note: intermittent cough with talking nonproductive one loose stool no prior dental work very vague- poor historian Vital Signs Period Temp Pulse Resp BP Sys/Taylor Pulse Ox Last 24 Hr 97.1 F-100.5 F 72-107 15-20 105-119/72-82 99 cor-rrr llungs clear abd soft,nt ext no edema CBC, BMP 10/21/16 05:20 10/21/16 05:20 Microbiology 10/20/16 11:15 Blood - Peripheral Venous TB Test (QFT) ([facility]) - Preliminary 10/19/16 15:44 Blood - Peripheral Venous Blood Culture - Preliminary NO GROWTH OBTAINED AFTER 24 HOURS, INCUBATION TO CONTINUE FOR 4 DAYS. 10/19/16 15:44 Blood - Peripheral Venous Blood Culture - Preliminary NO GROWTH OBTAINED AFTER 24 HOURS, INCUBATION TO CONTINUE FOR 4 DAYS. 10/20/16 11:15 Blood - Peripheral Venous Blood Parasites Smear ([facility]) - Final No growth. a/p liver abscess- partially treated with rocephin await serology quant gold suspect cough may be due to diaphragmatic irritation? hiv negative elevated total protein- check spep/upep continue zosyn/flagyl stools for ova and parasites stool cdiff review films with radiology in am GI consult d/w resident PPM- in April- he is not sure where he had it placed- somewhere [place] the city
--- NOTE | 2016-10-21 12:02 | PN ---
Teaching Attending Note Name of Resident: Andrea Laguerre ATTENDING PHYSICIAN STATEMENT I saw and evaluated the patient. I reviewed the resident's note and discussed the case with the resident. I agree with the resident's findings and plan as documented. SUBJECTIVE: Cough is better with Robitussin. He complains of diarrhea and says he had drenching sweats overnight. OBJECTIVE: Vital Signs Period Temp Pulse Resp BP Sys/Taylor Pulse Ox Last 24 Hr 97.1 F-100.5 F 72-107 15-20 105-119/72-82 99 HEART: S1S2, RRR LUNGS: Clear ABDOMEN: Soft, non-tender, non-distended, normal BS EXTREMITIES: No edema ASSESSMENT AND PLAN: This is a 66-year-old man with a history of rheumatic fever, complete heart block who presented to the ER with fevers x 1 month. 1. Severe sepsis secondary to liver abscess - ID consult appreciated - Continue Zosyn, Flagyl - WBC, lactic acidemia improved - Had temp 100.5 last night - IR for possible drainage - HIV negative - Quantiferon gold, Echinococcus Ab, parasite smear, Entamoeba Ab pending 2. Dehydration with mild hyponatremia - Improved with IV fluid 3. Anemia - Ferritin is high. B12, folate, TSH are normal - Iron, TIBC, iron sat pending 4. HTN - Continue Hyzaar 5. Diarrhea - Check stool O&P, C. difficile 6. History of rheumatic fever 7. History of complete heart block, pacemaker
--- NOTE | 2016-10-21 13:45 | CON.GI ---
Consult Consult Specialty:: GASTROENTEROLOGY - History of Present Illness Chief Complaint: FEVER/COUGH History of Present Illness: 66 YEAR OLD MALE WITH HISTORY OF HEART BLOCK AND PPM AND LEFT INGUINAL HERNIA, HTN RECENTLY DIAGNOSED WITH LIVER ABSCESS IN [place] RETURNS TO THE HOSPITAL WITH CONTINUED FEVER. HE HAS HAD NO RECENT SURGICAL INTERVENTION, DIARRHEA, RECTAL BLEEDING. HE HAS NO HISTORY OF LIVER DISEASE. HE STATES HE HAS TRAVELED A LOT BUT ONLY RECENTLY September TO [facility]. HE STARTED TO HAVE FEVER AND MALIASE AT HOME BEFORE HIS TRIP. HIS SYMPTOMS BECAME WORSE AND INCLUDED UPPER ABDOMINAL PAIN. HE WAS SEEN IN A HOSPITAL IN [facility] AND DIAGNOSED WITH A PYOGENIC LIVER ABSCESS AND WAS TREATED WITH ABX. NO FURTHER INVESTIGATIONS WERE PERFORMED EXCEPT FOR SEROLOGIES WHICH WERE NEGATIVE. HE HAS NEVER HAD A COLONOSCOPY. THERE IS NO FAMIY GI CANCERS. HE HAS CONTINUED TO HAVE FEVER AND HE CAME TO [facility] FOR EVALUATION. - History Source History Provided By: Patient, Medical Record Limitations to Obtaining History: No Limitations - Past Medical History SIGNAL WORKER: No: Alzheimer's, CVA, Dementia, Migraine, Multiple Sclerosis, Peripheral Neuropathy, Parkinson's, Seizure, Syncope, TIA, Vertigo, Other Cardio/Vascular: Yes: HTN, Other (HEART BLOCK/S/P PACEMAKER) Pulmonary: Yes: Other (COUGH) Gastrointestinal: Yes: GERD, Other (RECENT DX OF LIVER ABSCESS) Hepatobiliary: No: Cirrhosis, Cholelithiasis, Cholecystitis, Choledocholithiasis , Hepatitis A, Hepatitis B, Hepatitis C, Other Renal/: No: Renal Failure, Renal Inusuff, BPH, Cancer, Hematuria, Hemodialysis , Neurogenic Bladder, Renal Calculi, UTI, Other Heme/Onc: Yes: Anemia Infectious Disease: No: AIDS, C-Diff, Herpes Zoster, HIV, MRSA, STD's, Tuberculosis, VREF, Other Psych: No: Addictions, Anxiety, Bipolar, Depression, Panic, Psychosis, Schizophrenia, Other Musculoskeletal: No: Bursitis, Chronic low back pain, Hemiparesis, Hemiplegia, Osteoarthritis, Paraplegia, Other Rheumatology: No: Fibromyalgia, Gout, Lupus, Rheumatoid Arthritis, Sarcoidosis, Vasculitis, Other Endocrine: No: Mertens's Disease, [place]'s Disease, Diabetes Insipidus, Diabetes Mellitus, Hyperparathyroidism, Hyperthyroidism, Hypothyroidism, Osteopenia, SIADH, Other Dermatology: No: Basal Cell, Cellulitis, Eczema, Melanoma, Psoriasis, Squamous Cell, Other - Past Surgical History Past Surgical History: Yes: Permanent Pacemaker - Alcohol/Substance Use Hx Alcohol Use: No - Smoking History Smoking history: Current every day smoker Have you smoked in the past 12 months: Yes Aproximately how many cigarettes per day: 2 Home Medications - Allergies Allergies/Adverse Reactions: Allergies Allergy/AdvReac Type Severity Reaction Status Date / Time No Known Allergies Allergy Verified 10/19/16 14:44 - Home Medications Home Medications: Ambulatory Orders Esomeprazole Magnesium 40 mg PO DAILY 10/19/16 Hydroxyzine HCl [Atarax -] 25 mg PO DAILY 10/19/16 Losartan 50Mg/Hctz 12.5MG [Hyzaar -] 1 tab PO DAILY 10/19/16 Omeprazole 20 mg PO DAILY 10/19/16 Family Disease History - Family Disease History Family History: Unremarkable Review of Systems - Review of Systems Constitutional: reports: Chills, Fever, Loss of Appetite Eyes: reports: No Symptoms HENT: reports: No Symptoms Neck: reports: No Symptoms Cardiovascular: reports: No Symptoms Respiratory: reports: Cough Gastrointestinal: reports: Abdominal Pain Genitourinary: reports: No Symptoms Musculoskeletal: reports: No Symptoms Neurological: reports: No Symptoms Endocrine: reports: No Symptoms Hematology/Lymphatic: reports: No Symptoms Psychiatric: reports: No Symptoms Physical Exam-GI Vital Signs: Vital Signs Temperature 99.7 F H 10/21/16 13:19 Pulse Rate 94 H 10/21/16 13:19 Respiratory Rate 22 10/21/16 13:19 Blood Pressure 125/76 10/21/16 13:19 O2 Sat by Pulse Oximetry (%) 99 10/21/16 09:00 Constitutional: Yes: Well Nourished, No Distress, Calm Eyes: Yes: Conjunctiva Clear HENT: Yes: Normocephalic Neck: Yes: Supple Cardiovascular: Yes: Regular Rate and Rhythm Respiratory: Yes: Regular Gastrointestinal Inspection: Yes: WNL ...Auscultate: Yes: Normoactive Bowel Sounds ...Palpate: Yes: Soft Extremities: Yes: WNL Neurological: Yes: Alert, Oriented Labs: CBC, BMP 10/21/16 05:20 10/21/16 05:20 INR, PTT INR 1.27 (0.82-1.09) H 10/19/16 15:44 Laboratory Tests 10/19/16 10/20/16 10/20/16 15:44 06:05 11:15 WBC RBC Hgb Hct MCV MCH MCHC RDW Plt Count MPV Neutrophils % Lymphocytes % Monocytes % Eosinophils % Basophils % INR 1.27 H Sodium Potassium Chloride Carbon Dioxide Anion Gap BUN Creatinine Random Glucose Calcium Iron TIBC Iron Saturation Ferritin Total Bilirubin 0.6 D AST 29 D ALT 28 D Alkaline Phosphatase 220 H D Total Protein 8.5 H Albumin 1.9 L Vitamin B12 Serum Folate TSH Lyme Screen IgG & IgM Echinococcus Antibody Pending E. histolytica Antibody HIV 1&2 Antibody Screen HIV P24 Antigen 10/20/16 10/20/16 10/20/16 11:15 11:15 11:15 WBC RBC Hgb Hct MCV MCH MCHC RDW Plt Count MPV Neutrophils % Lymphocytes % Monocytes % Eosinophils % Basophils % INR Sodium Potassium Chloride Carbon Dioxide Anion Gap BUN Creatinine Random Glucose Calcium Iron TIBC Iron Saturation Ferritin Total Bilirubin AST ALT Alkaline Phosphatase Total Protein Albumin Vitamin B12 Serum Folate TSH Lyme Screen IgG & IgM Pending Echinococcus Antibody E. histolytica Antibody Pending HIV 1&2 Antibody Screen Negative HIV P24 Antigen Negative 10/21/16 10/21/16 10/21/16 05:20 05:20 05:20 WBC RBC Hgb Hct MCV MCH MCHC RDW Plt Count MPV Neutrophils % Lymphocytes % Monocytes % Eosinophils % Basophils % INR Sodium 135 L Potassium 3.7 Chloride 98 Carbon Dioxide 30 Anion Gap 7 L BUN 13 Creatinine 1.2 Random Glucose 84 Calcium 8.0 L Iron Pending TIBC Pending Iron Saturation Pending Ferritin 711.367 H Total Bilirubin AST ALT Alkaline Phosphatase Total Protein Albumin Vitamin B12 429 Serum Folate 10 TSH 1.94 Lyme Screen IgG & IgM Echinococcus Antibody E. histolytica Antibody HIV 1&2 Antibody Screen HIV P24 Antigen 10/21/16 05:20 WBC 7.2 RBC 3.48 L Hgb 9.8 L Hct 29.8 L MCV 85.5 MCH 28.3 MCHC 33.1 RDW 14.3 Plt Count 472 H MPV 7.2 L Neutrophils % 56.9 Lymphocytes % 23.9 Monocytes % 15.8 H Eosinophils % 2.2 D Basophils % 1.2 INR Sodium Potassium Chloride Carbon Dioxide Anion Gap BUN Creatinine Random Glucose Calcium Iron TIBC Iron Saturation Ferritin Total Bilirubin AST ALT Alkaline Phosphatase Total Protein Albumin Vitamin B12 Serum Folate TSH Lyme Screen IgG & IgM Echinococcus Antibody E. histolytica Antibody HIV 1&2 Antibody Screen HIV P24 Antigen Imaging - Results Cat Scan: Image Reviewed Problem List - Problems (1) Liver abscess Assessment/Plan: PATIENT HAS BEEN DIAGNOSED WITH A LIVER ABSCESS. THE ABSCESS WAS TREATED IN [place] BUT HE CONTINUES TO HAVE FEVER. IT WAS DIAGNOSED A PYOGENIC LIVER ABSCESS. SOURCE OF THAT INFECTION WAS NOT FOUND. HE HAS NOT HAD A COLONOSCOPY IN THE PAST. HE HAS TRAVELED "ALL OVER THE WORLD" AND THE LASTEST WAS [facility] IN [place]. HE DENIES CHRONIC DIARRHEA, STATES HE VOMITED ONCE WHILE IN [place] WITHOUT EVIDENCE OF ANY BLEEDING. HE HAS NO HISTORY OF LIVER DISEASE AND NO FAMILY HISTORY OF COLORECTAL OR OTHER GI/HEPATOBILIARY CANCERS. I SPOKE WITH THE ID PSYCHIATRIC REGISTERED NURSE AD AGREE WITH THE WORKUP. WE NEED TO RULE OUT ECHINOCOCCAL CYST AND ABSCESS, AMEBIASIS AND ABSCESS, HCC, PYOGENIC ABSCESS AND TB. SEROLOGICAL MARKERS HAVE BEEN SENT. I WOULD WAIT FOR THEIR RESULTS AND TREAT ACCORDINGLY IF POSITIVE. IF NEGATIVE AND THE PATIENT DOES NOT IMPROVE IT SHOULD BE ASPIRATED AND TREATED. LASTLY, IF THIS PROVES TO BE A PYOGENIC ABSCESS THEN THE COLON SHOULD BE SCREENED FOR NEOPLASM. Code(s): K75.0 - ABSCESS OF LIVER (2) Fever Code(s): R50.9 - FEVER, UNSPECIFIED (3) Elevated total protein Code(s): R77.8 - OTHER SPECIFIED ABNORMALITIES OF PLASMA PROTEINS
[2016-10-21] MEDS: ACETAMINOPHEN 325 MG TABLET (FP) PO PRN (17:14)
[2016-10-22] MEDS: METRONIDAZOLE 500 MG PREMIXED 100 ML IVPB SCH ×3 (02:04→17:13)
[2016-10-22] MEDS: PIPERACILLIN/TAZOB 4.5 GM/100 ML PRE-DOCKED IVPB SCH ×3 (02:04→18:00)
[2016-10-22 06:06] LABS: SERUM IRON 29 ug/dL (38-169); TOTAL IRON BINDING CAPACITY 144 ug/dL (250-450); UIBC 115 ug/dL (111-343)
[2016-10-22 06:32] LABS: BASOPHIL 1.3 % (0-2.0); EOSINOPHIL 2.7 % (0-4.5); MCHC 32.9 g/dl (32.0-35.9); MEAN PLT VOLUME 7.2 fl (7.5-11.1); PLATELET COUNT 555 K/MM3 (134-434); RDW 14.2 % (11.9-15.9); WHITE BLOOD COUNT 8.5 K/mm3 (4.0-10.0)
[2016-10-22 06:54] LABS: ANION GAP 10 (8-16); CALCIUM 8.1 mg/dL (8.5-10.1); CO2 27 mmol/L (21-32); CREATININE 1.2 mg/dL (0.7-1.3); GLUCOSE,RANDOM 92 mg/dL (74-106); SGOT/AST 27 U/L (15-37); SGPT/ALT 22 U/L (12-78)
[2016-10-22 06:56] LABS: ALK PHOS 202 U/L (45-117); BILIRUBIN,TOTAL 0.8 mg/dL (0.2-1.0); TOT PROT 8.9 g/dl (6.4-8.2)
--- NOTE | 2016-10-22 07:25 | PN ---
Progress Note, Physician Chief Complaint: ID Alert and in NAD Fevers chills on and off periods of dry couph Antibiotics Zosyn and metronidazole - Current Medication List Current Medications: Active Medications Acetaminophen (Tylenol -) 650 mg PO Q4H PRN PRN Reason: FEVER OR PAIN Last Admin: 10/21/16 17:14 Dose: 650 mg Benzocaine/Menthol (Cepacol Lozenge -) 1 each MM PRN PRN PRN Reason: SORE THROAT Last Admin: 10/21/16 09:48 Dose: 1 each Guaifenesin (Robitussin Dm -) 10 ml PO Q4H PRN PRN Reason: COUGH Last Admin: 10/21/16 17:14 Dose: 10 ml HCTZ/Losartan Potassium (Hyzaar -) 1 tab PO DAILY CHRISTEN Last Admin: 10/21/16 09:48 Dose: 1 tab Metronidazole (Flagyl 500mg Premixed Ivpb -) 100 mls @ 100 mls/hr IVPB Q8H-IV CHRISTEN Last Admin: 10/22/16 02:04 Dose: 100 mls/hr Piperacillin Sod/Tazobactam Sod (Zosyn 4.5gm Ivpb (Pre-Docked)) 4.5 gm IVPB Q8H -IV CHRISTEN Last Admin: 10/22/16 02:04 Dose: 4.5 gm - Objective Vital Signs: Vital Signs Temperature 98.6 F 10/22/16 06:00 Pulse Rate 85 10/22/16 06:00 Respiratory Rate 25 H 10/22/16 06:00 Blood Pressure 107/75 10/22/16 06:00 O2 Sat by Pulse Oximetry (%) 99 10/21/16 20:41 Constitutional: Yes: Well Nourished, No Distress Eyes: Yes: WNL, Conjunctiva Clear HENT: Yes: WNL, Atraumatic Cardiovascular: Yes: Regular Rate and Rhythm, S1, S2. No: Murmur Respiratory: Yes: WNL, Regular, CTA Bilaterally. No: Rales, Rhonchi Gastrointestinal: Yes: WNL, Normal Bowel Sounds. No: Tenderness, Tenderness, Rebound Extremities: No: Cold, Cool, Cyanosis Edema: No Labs: CBC, BMP 10/22/16 05:15 10/22/16 05:15 INR, PTT INR 1.27 (0.82-1.09) H 10/19/16 15:44 Assessment/Plan Laboratory Tests 10/19/16 10/19/16 10/19/16 15:44 15:44 18:23 WBC Hgb Hct Plt Count Creatinine Lactic Acid 4.2 H* 1.8 ALT Alkaline Phosphatase 296 H Total Protein 10.4 H Albumin 2.3 L Echinococcus Antibody HIV 1&2 Antibody Screen HIV P24 Antigen 10/20/16 10/20/16 10/20/16 06:05 11:15 11:15 WBC Hgb Hct Plt Count Creatinine 1.1 Lactic Acid ALT 28 D Alkaline Phosphatase 220 H D Total Protein Albumin Echinococcus Antibody Pending HIV 1&2 Antibody Screen Negative HIV P24 Antigen Negative 10/22/16 05:15 WBC 8.5 Hgb 10.3 L Hct 31.2 L Plt Count 555 H Creatinine Lactic Acid ALT Alkaline Phosphatase Total Protein Albumin Echinococcus Antibody HIV 1&2 Antibody Screen HIV P24 Antigen Assessment Fever with pyogenic liver abscess most likely bacterial etiology Partially treated abscess. Ceftriaxone in [facility] Plan Given response of antibiotics with decreased WBC TB seems much less likely also STOP ISOLATION OBTAIN ESR AND CRP SEROLOGY FOR ECHINOCOCCUS AMEBA Most important should be aspirated today cultures C/S AFB and FUNGI SPEP QUANT globulins Benrowan Caicedo if not sent Hepatitis serology B and C Mani SINGH Critical care time spent YES 50 minutes critical care time today Mani SINGH
[2016-10-22 08:09] LABS: C-REACTIVE PROTEIN 7.4 MG/DL (0.00-0.3)
[2016-10-22] MEDS: LOSARTAN 50MG/HCTZ 12.5MG 1 TAB (FP) PO SCH (11:24)
--- NOTE | 2016-10-22 12:46 | EKG ---
Test Reason : Blood Pressure : / mmHG Vent. Rate : 118 BPM Atrial Rate : 111 BPM P-R Int : 000 ms QRS Dur : 164 ms QT Int : 394 ms P-R-T Axes : 000 033 032 degrees QTc Int : 552 ms Ventricular-paced rhythm WITH PREMATURE VENTRICULAR OR ABERRANTLY CONDUCTED COMPLEXES ABNORMAL ECG NO PREVIOUS ECGS AVAILABLE Confirmed by KAYLI OCAMPO MD ([id number]) on 10/22/2016 12:46:33 PM Referred By: Confirmed By:KAYLI OCAMPO MD
--- NOTE | 2016-10-22 13:02 | CON.PULM ---
Consult Consult Specialty:: PULM/CCM Referred by:: DAREN Reason for Consultation:: Fever / cough - History of Present Illness Chief Complaint: fever History of Present Illness: 66 M, with listed medical/surgical history. Admitted via the ER due to fever. Patient has been having fevers and malaise for past month. He arrived from [facility] after being treated for fevers and liver abscess for about 1 month (September 19 to ). Workup in [facility] revealed liver lesions consistent with an abscess on CT scans. He reports cough and right upper chest pain. He was treated with IV cefatriaxone 1 gm daily. He reports poor appetite and about a 9 kg weight loss in the past month. No hemoptysis. 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: Alzheimer's, CVA, Dementia, Migraine, Multiple Sclerosis, Peripheral Neuropathy, Parkinson's, Seizure, Syncope, TIA, Vertigo, Other Cardio/Vascular: Yes: HTN, Other (HEART BLOCK/S/P PACEMAKER) Pulmonary: Yes: Other (COUGH) Gastrointestinal: Yes: GERD, Other (RECENT DX OF LIVER ABSCESS) Hepatobiliary: No: Cirrhosis, Cholelithiasis, Cholecystitis, Choledocholithiasis , Hepatitis A, Hepatitis B, Hepatitis C, Other Renal/: No: Renal Failure, Renal Inusuff, BPH, Cancer, Hematuria, Hemodialysis , Neurogenic Bladder, Renal Calculi, UTI, Other Infectious Disease: No: AIDS, C-Diff, Herpes Zoster, HIV, MRSA, STD's, Tuberculosis, VREF, Other Psych: No: Addictions, Anxiety, Bipolar, Depression, Panic, Psychosis, Schizophrenia, Other Musculoskeletal: No: Bursitis, Chronic low back pain, Hemiparesis, Hemiplegia, Osteoarthritis, Paraplegia, Other Rheumatology: No: Fibromyalgia, Gout, Lupus, Rheumatoid Arthritis, Sarcoidosis, Vasculitis, Other Endocrine: No: [place]'s Disease, Kady's Disease, Diabetes Insipidus, Diabetes Mellitus, Hyperparathyroidism, Hyperthyroidism, Hypothyroidism, Osteopenia, SIADH, Other Dermatology: No: Basal Cell, Cellulitis, Eczema, Melanoma, Psoriasis, Squamous Cell, Other - Past Surgical History Past Surgical History: Yes: Permanent Pacemaker - Alcohol/Substance Use Hx Alcohol Use: No - Smoking History Smoking history: Current every day smoker Have you smoked in the past 12 months: Yes Aproximately how many cigarettes per day: 2 Home Medications - Allergies Allergies/Adverse Reactions: Allergies Allergy/AdvReac Type Severity Reaction Status Date / Time No Known Allergies Allergy Verified 10/19/16 14:44 - Home Medications Home Medications: Ambulatory Orders Esomeprazole Magnesium 40 mg PO DAILY 10/19/16 Hydroxyzine HCl [Atarax -] 25 mg PO DAILY 10/19/16 Losartan 50Mg/Hctz 12.5MG [Hyzaar -] 1 tab PO DAILY 10/19/16 Omeprazole 20 mg PO DAILY 10/19/16 Review of Systems - Review of Systems Constitutional: reports: Chills, Fever, Lethargy, Loss of Appetite, Malaise, Unintentional Wgt. Loss, Weakness. denies: Night Sweats Eyes: reports: No Symptoms HENT: reports: No Symptoms Neck: reports: No Symptoms Cardiovascular: reports: Chest Pain, Shortness of Breath. denies: Edema, Palpitations Respiratory: reports: Cough, SOB, SOB on Exertion. denies: Hemoptysis, Orthopnea, Snoring, Wheezing Gastrointestinal: reports: Bloating, Indigestion, Nausea. denies: Melena, Rectal Bleeding, Vomiting, Vomiting Blood Genitourinary: reports: No Symptoms Breasts: reports: No Symptoms Reported Musculoskeletal: reports: Back Pain, Muscle Cramps Integumentary: reports: No Symptoms Neurological: reports: No Symptoms Endocrine: reports: No Symptoms Hematology/Lymphatic: reports: No Symptoms Psychiatric: reports: No Symptoms Physical Exam Vital Sings: Vital Signs Temperature 97.5 F L 10/22/16 10:00 Pulse Rate 83 10/22/16 10:00 Respiratory Rate 22 10/22/16 10:00 Blood Pressure 114/69 10/22/16 10:00 O2 Sat by Pulse Oximetry (%) 99 10/22/16 08:30 Constitutional: Yes: No Distress. No: Pallor Eyes: Yes: Conjunctiva Clear, EOM Intact HENT: Yes: Atraumatic, Normocephalic Neck: Yes: Supple, Trachea Midline Cardiovascular: Yes: Regular Rate and Rhythm Respiratory: Yes: CTA Bilaterally. No: Accessory Muscle Use ...Inspection: Yes: WNL ...Clubbing: No Gastrointestinal: Yes: Normal Bowel Sounds, Soft, Tenderness Renal/: Yes: WNL Musculoskeletal: Yes: WNL Extremities: Yes: WNL Edema: No Peripheral Pulses WNL: Yes Integumentary: Yes: WNL Neurological: Yes: WNL, Alert, Oriented ...Motor Strength: WNL Psychiatric: Yes: WNL, Alert, Oriented Labs: CBC, BMP 10/22/16 05:15 10/22/16 05:15 Imaging - Results Chest X-ray: Report Reviewed, Image Reviewed Problem List - Problems (1) Elevated total protein Code(s): R77.8 - OTHER SPECIFIED ABNORMALITIES OF PLASMA PROTEINS (2) Fever Code(s): R50.9 - FEVER, UNSPECIFIED (3) Liver abscess Code(s): K75.0 - ABSCESS OF LIVER (4) Severe sepsis Code(s): A41.9 - SEPSIS, UNSPECIFIED ORGANISM R65.20 - SEVERE SEPSIS WITHOUT SEPTIC SHOCK Assessment/Plan ABX per ID O2 as needed VTE prophylaxis GI workup ongoing IR has been consulted for possible tissue sampling Will follow Thank you. Dr Galan
--- NOTE | 2016-10-22 14:26 | PN ---
Teaching Attending Note Name of Resident: Andrea Laguerre ATTENDING PHYSICIAN STATEMENT I saw and evaluated the patient. I reviewed the resident's note and discussed the case with the resident. I agree with the resident's findings and plan as documented. SUBJECTIVE: No new complaints. Still having overnight sweats. Had fever 101.5 last evening. OBJECTIVE: Vital Signs Period Temp Pulse Resp BP Sys/Taylor Pulse Ox Last 24 Hr 97.5 F-101.5 F 83-103 16-25 97-120/66-81 99-99 HEART: S1S2, RRR LUNGS: Clear ABDOMEN: Soft, non-tender, non-distended, normal BS EXTREMITIES: No edema ASSESSMENT AND PLAN: This is a 66-year-old man with a history of rheumatic fever, complete heart block who presented to the ER with fevers x 1 month. 1. Severe sepsis secondary to liver abscess - Continue Zosyn, Flagyl - WBC, lactic acidemia improved - Had temp 100.5 last night - IR for possible drainage - HIV negative - Entamoeba histolytica Ab positive - Quantiferon gold, Echinococcus Ab, parasite smear pending 2. Dehydration with mild hyponatremia - Improved with IV fluid 3. Anemia - Ferritin is high, iron and TIBC are low, iron sat low normal - B12, folate, TSH are normal 4. HTN - Continue Hyzaar 5. Diarrhea - Stool O&P pending. C. difficile negative 6. History of rheumatic fever 7. History of complete heart block, pacemaker
--- NOTE | 2016-10-22 14:34 | PN ---
Physical Exam: SUBJECTIVE: Patient seen and examined No acute events overnight. Patient still complains of a persistent dry cough and night sweats. OBJECTIVE: Vital Signs Period Temp Pulse Resp BP Sys/Taylor Pulse Ox Last 24 Hr 97.5 F-101.5 F 83-103 16-25 97-120/66-81 99-99 GENERAL: Awake, alert, and fully oriented, in no acute distress. HEAD: Normal with no signs of trauma. EYES: Pupils equal, round and reactive to light, extraocular movements intact, sclera anicteric, conjunctiva clear. No lid lag. EARS, NOSE, THROAT: Oropharynx clear without exudates. Moist mucous membranes. NECK: Normal range of motion, supple without lymphadenopathy LUNGS: Breath sounds equal, clear to auscultation bilaterally. No wheezes, and no crackles. No accessory muscle use. HEART: Regular rate and rhythm, normal S1 and S2 without murmur, rub or gallop. ABDOMEN: Soft, nontender, not distended, normoactive bowel sounds, no guarding, no rebound, no masses. UPPER EXTREMITIES: 2+ radial pulses, warm, well-perfused. No cyanosis. No clubbing. No peripheral edema. LOWER EXTREMITIES: Warm, well-perfused. No calf tenderness. No peripheral edema. NEUROLOGICAL: Cranial nerves II-XII intact. Normal speech. Normal gait. PSYCHIATRIC: Cooperative. Good eye contact. Appropriate mood and affect. Laboratory Results - last 24 hr 10/20/16 10/21/16 10/21/16 11:15 05:20 19:00 WBC RBC Hgb Hct MCV MCH MCHC RDW Plt Count MPV Neutrophils % Lymphocytes % Monocytes % Eosinophils % Basophils % Sodium Potassium Chloride Carbon Dioxide Anion Gap BUN Creatinine Creat Clearance w eGFR Random Glucose Calcium Iron 29 L TIBC 144 L Iron Saturation 20 Total Bilirubin AST ALT Alkaline Phosphatase C-Reactive Protein Total Protein Albumin Stool Occult Blood Negative E. histolytica Antibody Positive H 10/22/16 10/22/16 10/22/16 05:15 05:15 05:15 WBC 8.5 RBC 3.67 L Hgb 10.3 L Hct 31.2 L MCV 85.0 MCH 28.0 MCHC 32.9 RDW 14.2 Plt Count 555 H MPV 7.2 L Neutrophils % 58.0 Lymphocytes % 25.9 Monocytes % 12.1 H Eosinophils % 2.7 Basophils % 1.3 Sodium 131 L Potassium 3.5 Chloride 94 L Carbon Dioxide 27 Anion Gap 10 BUN 10 D Creatinine 1.2 Creat Clearance w eGFR > 60 Random Glucose 92 Calcium 8.1 L Iron TIBC Iron Saturation Total Bilirubin 0.8 D AST 27 ALT 22 D Alkaline Phosphatase 202 H C-Reactive Protein 7.4 H Cancelled Total Protein 8.9 H Albumin 2.0 L Stool Occult Blood E. histolytica Antibody Active Medications Generic Name Dose Route Start Last Admin Trade Name Freq PRN Reason Stop Dose Admin Acetaminophen 650 mg 10/20/16 18:28 10/21/16 17:14 Tylenol - PO 650 mg Q4H PRN Administration FEVER OR PAIN Benzocaine/Menthol 1 each 10/20/16 18:28 10/21/16 09:48 Cepacol Lozenge - MM 1 each PRN PRN Administration SORE THROAT Guaifenesin 10 ml 10/20/16 11:46 10/21/16 17:14 Robitussin Dm - PO 10 ml Q4H PRN Administration COUGH HCTZ/Losartan Potassium 1 tab 10/20/16 10:00 10/22/16 11:24 Hyzaar - PO 1 tab DAILY CHRISTEN Administration Metronidazole 100 mls @ 100 mls/hr 10/20/16 14:15 10/22/16 09:48 Flagyl 500mg Premixed Ivpb - IVPB 100 mls/hr Q8H-IV CHRISTEN Administration Piperacillin Sod/Tazobactam Sod 4.5 gm 10/20/16 14:15 10/22/16 09:48 Zosyn 4.5gm Ivpb (Pre-Docked) IVPB 4.5 gm Q8H-IV CHRISTEN Administration ASSESSMENT/PLAN: 66 yo M with PMH of complete heart block who presented to the ED with continuous fevers for one month found to have liver lesions admitted to telemetry for severe sepsis likely secondary to liver abscesses. #Severe sepsis likely secondary to liver abscess -Continue Zosyn 4.5 gm IVPB and Flagyl 500 mg IVPB -Lactic acidosis improved -Will go to IR for possible abscess drainage today -E. Histolytica Ab +, Echinococcus, lyme, quant gold, stool ova/parasites -HIV negative -Transfer from tele to med-surg -PPD read today. No induration, no surrounding erythema. Negative PPD #Hyponatremia -131 today -Continue to monitor #Diarrhea -Improving -C. Diff ag/toxin negative #Anemia -Hgb 9.8 -Iron- 29 -TIBC-144 -Ferritin- 744 -Likely anemia of chronic disease -Continue to monitor #HTN -Continue home medication (Hyzaar 50/12.5 1 tab PO daily) #DVT ppx -SCD's Visit type - Emergency Visit Emergency Visit: No - New Patient This patient is new to me today: No - Critical Care Critical Care patient: No
--- NOTE | 2016-10-22 15:57 | PN ---
Progress Note (short form) - Note Progress Note: GASTROENTEROLOGY SPOKE WITH DR XIAO TODAY: E HISTOLYTICA Problem List - Problems (1) Liver abscess Code(s): K75.0 - ABSCESS OF LIVER (2) Fever Code(s): R50.9 - FEVER, UNSPECIFIED (3) Elevated total protein Code(s): R77.8 - OTHER SPECIFIED ABNORMALITIES OF PLASMA PROTEINS
--- NOTE | 2016-10-22 16:05 | PN ---
Progress Note (short form) - Note Progress Note: GASTROENTEROLOGY SPOKE WITH DR XIAO TODAY: E HISTOLYTICA ANTIBODY IS POSITIVE; STOOL O&P PENDING, ECHINOCOCCUS ANTIBODY PENDING GETTING ABX INCLUDING METRONIADZOLE. ORDER IN CHART FOR IR CATHETER DRAINAGE. WAIT FOR ECHINOCCCUS AB TO BE RESULTED. IF THIS IS AN AMEBIC ABSCESS IT RARELY NEEDS TO BE DRAINED AND ANTIBIOTIC THERAPY USUALLY GIVES GOOD RESPONSE IN ONE TO TWO WEEKS. (RADIOLOGY IMPROVEMENT WILL DRAG BEHIND CLINICAL IMPROVMENT) IF THERE IS STILL A CONCERN OF PYOGENIC ABSCESS VS AMEBIC AND ID FEELS THEY NEED A CULTURE, I WOULD RECOMMEND AN ASPIRATION ONLY AND IF THE FLUID IS CLASSIC "ANCHOVY PASTE" THEN YOU HAVE YOUR DIAGNOSIS. IF NOT AND IT LOOKS LIKE A PYOGENIC ABSCESS THEN A DRAIN IS NEEDED. (IF PYOGENIC ABSCESS IS DIAGNOSED THEN HE WOULD ALSO NEED A COLONOSCOPY THIS ADMISSION) MONSERRAT HILL MD Problem List - Problems (1) Liver abscess Code(s): K75.0 - ABSCESS OF LIVER (2) Fever Code(s): R50.9 - FEVER, UNSPECIFIED (3) Elevated total protein Code(s): R77.8 - OTHER SPECIFIED ABNORMALITIES OF PLASMA PROTEINS
[2016-10-22] MEDS ORDERED: ACETAMINOPHEN 325 MG TABLET (FP) PO ONE (17:10)
[2016-10-22] MEDS ORDERED: morphine CARPU-JECT 2 MG/1 ML DISP.SYRIN IVPUSH ONE ×2 (17:14→18:09)
[2016-10-22] MEDS ORDERED: morphine CARPU-JECT 2 MG/1 ML DISP.SYRIN IVPUSH PRN (17:15)
[2016-10-22] MEDS ORDERED: morphine CARPU-JECT 2 MG/1 ML DISP.SYRIN ONE (17:23)
[2016-10-22] MEDS ORDERED: BENZOCAINE/MENTH/CETYLPYRD CL 1 EACH LOZENGE MM PRN (18:30)
[2016-10-22] MEDS: morphine CARPU-JECT 2 MG/1 ML DISP.SYRIN IVPUSH SCH ×2 (18:52→22:50)
--- NOTE | 2016-10-22 20:09 | CONS ---
DATE OF CONSULTATION: 10/20/2016 REQUESTED BY: Hospitalist Service This is a 66-year-old man with a history of fever, malaise, lethargy since September 16. These symptoms started on September 16. He traveled, feeling lousy with fevers, through airports, then went to [facility] to visit his daughter on September 18. He continued to have fevers while he was there. He went to seek medical care at a facility in [facility]. He reports being given 4 days of oral antibiotics, he thinks ciprofloxacin. He had a CAT scan of his abdomen and pelvis that was notable for a big heterogeneous mass lesion in the right lobe of the liver with complex echotexture, mostly hypoechoic, measuring 85 x 90 mm with small hypoechoic focal lesion seen adjacent. The question of liver abscess was raised. He was never hospitalized he tells me but was treated on a daily basis with IV ceftriaxone per his medical report which he brings to the hospital. He reports he continued to have daily fever. He had a sharp chest pain in his right upper quadrant that he reports has improved. He has had continued cough which is nonproductive. He has had a poor appetite. He has had weight loss that he has been unable to quantitate. There has been no diarrhea. He has had no new foods, no exposures. Of note, in January 2016, he did have a chest CT done here at [facility], which I reviewed with the radiologist. There was no evidence on that noncontrast study of any liver lesions. PAST MEDICAL HISTORY: Notable for tonsillectomy at age 8. He has a history of rheumatic fever. He had complete AV block with pacemaker placed in April 2016. SURGICAL HISTORY: Notable for hernia repair and tonsillectomy. SOCIAL HISTORY: He is originally from [place]. He moved to the in 1999. He originally was living in [place] and moved to [place] several years ago. He has not traveled to [place] in many years. He has a history of cigarette use, social alcohol use. No drug use. He reports there is no history of tuberculosis. 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 He has no known drug allergies. MEDICATIONS AN OUTPATIENT: Include omeprazole, Atarax, losartan. He is followed by Dr. Miramontes in the clinic. REVIEW OF SYSTEMS: Notable for lethargy, generalized weakness, loss of appetite , and fever. He otherwise has no localizing complaints. PHYSICAL EXAMINATION: Vital Signs: His temperature is 98.8. Pulse is 104. Blood pressure is 109/ 79. Respiratory rate is 18. He has a nonproductive cough. He is saturating 99%. HEENT: He is normocephalic. His eyes are anicteric. Neck: Supple. He has no adenopathy. Lungs: Clear to auscultation. Heart: Regular rate and rhythm. Abdomen: Soft, nontender. Extremities: Without edema. Skin: He has no rash. His white count on admission was 13; this morning is 9.4. Hemoglobin is 10. Platelets are 490. INR is 1.2. BUN and creatinine on admission were BUN 21 and creatinine 1.5; this morning, BUN 15 and creatinine 1.1. Alkaline phosphatase at 220. Total protein is elevated at 8.5 after hydration with albumin of 1.9. Urinalysis is negative. In summary, this is a 66-year-old man with a right hepatic lobe cystic lesion associated with fevers for 1 month. His differential diagnosis would include a partially treated bacterial abscess as well as amoebic and echinococcal abscess , less likely tuberculosis. He is currently on Zosyn and metronidazole which we will continue at this time. Blood cultures have been repeated. Would obtain echinococcal and amoebic serology. Given the fact that he had a prior complete heart block, Lyme serology would be appropriate as well. Would send a QuantiFERON Gold given his history of being from [place] [facility]. His elevated total protein, he needs an HIV test. If negative, he should be screened for myeloma. Would suggest a GI consultation, stool for ova and parasites. We will review CAT scan with IR on Saturday in order to make further recommendations. This was all discussed with Dr. Vazquez the admitting resident. TJ MERCER M.D. [id number] MTDD
[2016-10-22] MEDS: ACETAMINOPHEN 325 MG TABLET (FP) PO PRN (20:30)
[2016-10-22] MEDS ORDERED: PT OWN MED DRAWER 7, Y5N ONE (22:07)
[2016-10-23] MEDS: METRONIDAZOLE 500 MG PREMIXED 100 ML IVPB SCH ×3 (01:15→17:41)
[2016-10-23] MEDS ORDERED: PIPERACILLIN/TAZOB 4.5 GM/100 ML PRE-DOCKED IVPB SCH (02:00)
[2016-10-23] MEDS: morphine CARPU-JECT 2 MG/1 ML DISP.SYRIN IVPUSH SCH ×6 (02:29→22:36)
[2016-10-23 08:12] LABS: BASOPHIL 0.7 % (0-2.0); EOSINOPHIL 0.7 % (0-4.5); MCH 28.1 pg (25.7-33.7); MEAN CELL VOLUME 85.4 fl (80-96); MEAN PLT VOLUME 6.8 fl (7.5-11.1); NEUTROPHILS 72.9 % (42.8-82.8); PLATELET COUNT 481 K/MM3 (134-434); RDW 14.3 % (11.9-15.9); WHITE BLOOD COUNT 8.1 K/mm3 (4.0-10.0)
[2016-10-23 08:20] LABS: ALBUMIN 1.8 g/dl (3.4-5.0); ANION GAP 9 (8-16); BILIRUBIN,DIRECT 0.2 mg/dL (0.0-0.2); BILIRUBIN,TOTAL 0.6 mg/dL (0.2-1.0); CALCIUM 7.9 mg/dL (8.5-10.1); CO2 29 mmol/L (21-32); CREATININE 1.1 mg/dL (0.7-1.3); GLUCOSE,RANDOM 93 mg/dL (74-106); SGOT/AST 23 U/L (15-37); SGPT/ALT 18 U/L (12-78)
[2016-10-23 08:21] LABS: ALK PHOS 164 U/L (45-117); TOT PROT 8.4 g/dl (6.4-8.2)
[2016-10-23] MEDS ORDERED: DEXTROSE 5%-WATER 100 ML IVPB ONE ×2 (09:35→16:53)
[2016-10-23] MEDS ORDERED: PIPERACILLIN/TAZOBACTAM 4.5 GM VIAL IVPB ONE ×2 (09:35→16:53)
[2016-10-23] MEDS: LOSARTAN 50MG/HCTZ 12.5MG 1 TAB (FP) PO SCH (10:10)
[2016-10-23] MEDS: guaiFENesin/D-METHORPHAN HB 10 ML UNIT-DOSE CUPS PO PRN ×2 (10:38→17:41)
[2016-10-23] MEDS: PIPERACILLIN/TAZOB 4.5 GM 4.5 GM in DEXTROSE 5%-WATER 100 ML IVPB SCH ×2 (11:33→17:41)
--- NOTE | 2016-10-23 13:51 | PN ---
Teaching Attending Note Name of Resident: Andrea Laguerre ATTENDING PHYSICIAN STATEMENT I saw and evaluated the patient. I reviewed the resident's note and discussed the case with the resident. I agree with the resident's findings and plan as documented. SUBJECTIVE: No complaints. Had drainage of liver abscess yesterday. Had pain after the procedure, but better now. Had fever 101.7 last night. OBJECTIVE: Vital Signs Period Temp Pulse Resp BP Sys/Taylor Pulse Ox Last 24 Hr 98.9 F-101.7 F 87-96 13-18 109-134/46-86 97-100 HEART: S1S2, RRR LUNGS: Clear ABDOMEN: Soft, non-tender, non-distended, normal BS EXTREMITIES: No edema ASSESSMENT AND PLAN: This is a 66-year-old man with a history of rheumatic fever, complete heart block who presented to the ER with fevers x 1 month. 1. Severe sepsis secondary to liver abscess - Still febrile - Continue Zosyn, Flagyl - s/p drainage by IR 10/21 - purulent fluid drained and drain left in place - HIV negative - Entamoeba histolytica Ab positive - Parasite smear negative - Quantiferon gold, Echinococcus Ab pending 2. Dehydration with mild hyponatremia - Improved with IV fluid 3. Anemia, likely secondary to chronic illness - Hemoglobin is stable 4. HTN - Continue Hyzaar 5. Diarrhea - Stool O&P pending - C. difficile negative 6. History of rheumatic fever 7. History of complete heart block, pacemaker
--- NOTE | 2016-10-23 14:31 | PN ---
Physical Exam: SUBJECTIVE: Patient seen and examined No acute events overnight. No complaints this morning. Patient had liver abscess drained yesterday and drain is in place. Tmax was 101.7 yesterday. OBJECTIVE: Vital Signs Period Temp Pulse Resp BP Sys/Taylor Pulse Ox Last 24 Hr 98.9 F-101.7 F 87-96 13-18 109-134/46-86 97-100 GENERAL: Awake, alert, and fully oriented, in no acute distress. HEAD: Normal with no signs of trauma. EYES: Extraocular movements intact, sclera anicteric, conjunctiva clear. No lid lag. EARS, NOSE, THROAT: Oropharynx clear without exudates. Moist mucous membranes. NECK: Normal range of motion, supple without lymphadenopathy LUNGS: Breath sounds equal, clear to auscultation bilaterally. No wheezes, and no crackles. No accessory muscle use. HEART: Regular rate and rhythm, normal S1 and S2 without murmur, rub or gallop. ABDOMEN: Soft, nontender, not distended, normoactive bowel sounds, no guarding, no rebound, no masses. UPPER EXTREMITIES: 2+ radial pulses, warm, well-perfused. No cyanosis. No clubbing. No peripheral edema. LOWER EXTREMITIES: Warm, well-perfused. No calf tenderness. No peripheral edema. NEUROLOGICAL: Cranial nerves II-XII intact. Normal speech. Normal gait. PSYCHIATRIC: Cooperative. Good eye contact. Appropriate mood and affect. Laboratory Results - last 24 hr 10/20/16 10/22/16 10/22/16 11:15 05:15 05:15 WBC RBC Hgb Hct MCV MCH MCHC RDW Plt Count MPV Neutrophils % Lymphocytes % Monocytes % Eosinophils % Basophils % ESR Sodium Potassium Chloride Carbon Dioxide Anion Gap BUN Creatinine Random Glucose Calcium Total Bilirubin Direct Bilirubin AST ALT Alkaline Phosphatase Total Protein Albumin Tumor Marker AFP 3.3 Carcinoembryonic Ag 1.5 Stool O & P Wet [place] Screen IgG & IgM <0.91 O & P Permanent Slide 10/22/16 10/23/16 10/23/16 16:00 06:55 06:55 WBC 8.1 RBC 3.69 L Hgb 10.4 L Hct 31.5 L MCV 85.4 MCH 28.1 MCHC 33.0 RDW 14.3 Plt Count 481 H MPV 6.8 L Neutrophils % 72.9 D Lymphocytes % 16.4 D Monocytes % 9.3 Eosinophils % 0.7 Basophils % 0.7 ESR 121 H Sodium Potassium Chloride Carbon Dioxide Anion Gap BUN Creatinine Random Glucose Calcium Total Bilirubin Direct Bilirubin AST ALT Alkaline Phosphatase Total Protein Albumin Tumor Marker AFP Carcinoembryonic Ag Stool O & P Wet [place] Cancelled [place] Screen IgG & IgM O & P Permanent Slide Cancelled 10/23/16 06:55 WBC RBC Hgb Hct MCV MCH MCHC RDW Plt Count MPV Neutrophils % Lymphocytes % Monocytes % Eosinophils % Basophils % ESR Sodium 132 L Potassium 3.5 Chloride 94 L Carbon Dioxide 29 Anion Gap 9 BUN 8 Creatinine 1.1 Random Glucose 93 Calcium 7.9 L Total Bilirubin 0.6 D Direct Bilirubin 0.2 AST 23 ALT 18 Alkaline Phosphatase 164 H Total Protein 8.4 H Albumin 1.8 L Tumor Marker AFP Carcinoembryonic Ag Stool O & P Wet [place] Screen IgG & IgM O & P Permanent Slide Active Medications Generic Name Dose Route Start Last Admin Trade Name Freq PRN Reason Stop Dose Admin Acetaminophen 650 mg 10/22/16 18:30 10/22/16 20:30 Tylenol - PO 650 mg Q4H PRN Administration FEVER OR PAIN Benzocaine/Menthol 1 each 10/22/16 18:30 Cepacol Lozenge - MM PRN PRN SORE THROAT Guaifenesin 10 ml 10/22/16 18:30 10/23/16 10:38 Robitussin Dm - PO 10 ml Q4H PRN Administration COUGH HCTZ/Losartan Potassium 1 tab 10/23/16 10:00 10/23/16 10:10 Hyzaar - PO 1 tab DAILY CHRISTEN Administration Metronidazole 100 mls @ 100 mls/hr 10/23/16 02:00 10/23/16 10:10 Flagyl 500mg Premixed Ivpb - IVPB 100 mls/hr Q8H-IV CHRISTEN Administration Piperacillin Sod/Tazobactam 100 mls @ 200 mls/hr 10/23/16 10:00 10/23/16 11:33 Sod 4.5 gm/ Dextrose IVPB 200 mls/hr Q8H-IV CHRISTEN Administration Morphine Sulfate 2 mg 10/22/16 18:30 10/23/16 10:32 Morphine Injection - IVPUSH 10/29/16 18:29 2 mg Q4H CHRISTEN Administration ASSESSMENT/PLAN: 66 yo M with PMH of complete heart block who presented to the ED with continuous fevers for one month found to have liver lesions admitted to telemetry for severe sepsis likely secondary to liver abscesses. #Severe sepsis likely secondary to liver abscess s/p drainage on 10/22 -Patient still remains spiking intermittent fevers -Continue Zosyn 4.5 gm IVPB and Flagyl 500 mg IVPB -Lactic acidosis improved -Will go to IR for possible abscess drainage today -E. Histolytica Ab +, [Echinococcus, lyme, quant gold, stool ova/parasites] pending -HIV negative -Transfer from tele to med-surg -PPD read today. No induration, no surrounding erythema. Negative PPD #Hyponatremia -132 today -Continue to monitor #Diarrhea -Improved -C. Diff ag/toxin negative -Stool studies pending #Anemia -Hgb 8.1 -Iron- 29 -TIBC-144 -Ferritin- 744 -Likely anemia of chronic disease -Continue to monitor #HTN -Continue home medication (Hyzaar 50/12.5 1 tab PO daily) #DVT ppx -SCD's Visit type - Emergency Visit Emergency Visit: No - New Patient This patient is new to me today: No - Critical Care Critical Care patient: No
--- NOTE | 2016-10-23 16:43 | PN ---
Progress Note (short form) - Note Progress Note: s/p drainage with interventional radiology CARI with dark brown fluid Vital Signs Period Temp Pulse Resp BP Sys/Taylor Pulse Ox Last 24 Hr 98.8 F-101.7 F 88-111 16-20 109-130/46-81 97-100 cor-rrr lungs clear abd soft,nt +drain ext no edema CBC, BMP 10/23/16 06:55 10/23/16 06:55 Microbiology 10/19/16 15:44 Blood - Peripheral Venous Blood Culture - Preliminary NO GROWTH OBTAINED AFTER 96 HOURS, INCUBATION TO CONTINUE FOR 1 DAYS. 10/19/16 15:44 Blood - Peripheral Venous Blood Culture - Preliminary NO GROWTH OBTAINED AFTER 96 HOURS, INCUBATION TO CONTINUE FOR 1 DAYS. 10/22/16 16:00 Abscess AFB Smear Concentration - Final 10/22/16 16:00 Abscess Mycobacterial Culture - Preliminary 10/22/16 16:00 Abscess Gram Stain - Final 10/22/16 16:00 Abscess Anaerobic Culture - Final 10/22/16 16:00 Abscess Gram Stain - Final 10/21/16 14:25 Stool Clostridium difficile Antigen (LEAH) - Final 10/21/16 14:25 Stool Clostridium difficile Toxin Assay - Final 10/20/16 11:15 Blood - Peripheral Venous TB Test (QFT) (LEAH) - Preliminary 10/20/16 11:15 Blood - Peripheral Venous Blood Parasites Smear (LEAH) - Final No growth. a/p liver abscess- partially treated with rocephin positive amebic serology gram stain negative from drainage continue zosyn and flagyl Problem List - Problems (1) Liver abscess Code(s): K75.0 - ABSCESS OF LIVER (2) Elevated total protein Code(s): R77.8 - OTHER SPECIFIED ABNORMALITIES OF PLASMA PROTEINS
[2016-10-24 00:09] LABS: A/G RATIO 0.4 (0.7-1.7); ALBUMIN 2.4 g/dL (2.9-4.4); GLOBULIN, TOTAL 6.6 g/dL (2.2-3.9); M-SPIKE Not Observed g/dL (Not Observed)
[2016-10-24] MEDS ORDERED: PIPERACILLIN/TAZOBACTAM 4.5 GM VIAL IVPB ONE ×5 (01:04→22:15)
[2016-10-24] MEDS ORDERED: DEXTROSE 5%-WATER 100 ML IVPB ONE ×5 (01:05→22:15)
[2016-10-24] MEDS: ACETAMINOPHEN 325 MG TABLET (FP) PO PRN ×2 (01:06→22:22)
[2016-10-24] MEDS: METRONIDAZOLE 500 MG PREMIXED 100 ML IVPB SCH ×3 (01:08→17:34)
[2016-10-24] MEDS: PIPERACILLIN/TAZOB 4.5 GM 4.5 GM in DEXTROSE 5%-WATER 100 ML IVPB SCH ×3 (02:09→17:34)
[2016-10-24] MEDS: morphine CARPU-JECT 2 MG/1 ML DISP.SYRIN IVPUSH SCH ×2 (02:26→06:37)
[2016-10-24 08:21] LABS: ALBUMIN 1.8 g/dl (3.4-5.0); ALK PHOS 142 U/L (45-117); ANION GAP 6 (8-16); BILIRUBIN,DIRECT 0.2 mg/dL (0.0-0.2); BILIRUBIN,TOTAL 0.5 mg/dL (0.2-1.0); CALCIUM 8.3 mg/dL (8.5-10.1); CO2 31 mmol/L (21-32); CREATININE 1.2 mg/dL (0.7-1.3); GLUCOSE,RANDOM 116 mg/dL (74-106); SGOT/AST 18 U/L (15-37); SGPT/ALT 14 U/L (12-78)
[2016-10-24 08:27] LABS: BASOPHIL 1.1 % (0-2.0); EOSINOPHIL 3.2 % (0-4.5); MCH 28.7 pg (25.7-33.7); MCHC 33.4 g/dl (32.0-35.9); MEAN CELL VOLUME 85.8 fl (80-96); MEAN PLT VOLUME 6.9 fl (7.5-11.1); PLATELET COUNT 471 K/MM3 (134-434); RDW 14.5 % (11.9-15.9); WHITE BLOOD COUNT 8.4 K/mm3 (4.0-10.0)
--- NOTE | 2016-10-24 09:02 | PN ---
Teaching Attending Note Name of Resident: Homar Hanks ATTENDING PHYSICIAN STATEMENT I saw and evaluated the patient. I reviewed the resident's note and discussed the case with the resident. I agree with the resident's findings and plan as documented. SUBJECTIVE: Patient asymptomatic Low grade temps OBJECTIVE:Lung Clear Cor S1 s2 RR Abd soft nontender drainage cath RUQ bloody with sediment ASSESSMENT AND PLAN: Microbiology 10/22/16 16:00 Abscess Gram Stain - Final 10/22/16 16:00 Abscess Anaerobic Culture - Final 10/22/16 16:00 Abscess Gram Stain - Final 10/22/16 16:00 Abscess AFB Smear Concentration - Final 10/20/16 11:15 Blood - Peripheral Venous Blood Parasites Smear (ELAH) - Final No growth. 10/22/16 16:00 Abscess Mycobacterial Culture - Preliminary 10/19/16 15:44 Blood - Peripheral Venous Blood Culture - Preliminary NO GROWTH OBTAINED AFTER 96 HOURS, INCUBATION TO CONTINUE FOR 1 DAYS. 10/19/16 15:44 Blood - Peripheral Venous Blood Culture - Preliminary NO GROWTH OBTAINED AFTER 96 HOURS, INCUBATION TO CONTINUE FOR 1 DAYS. Laboratory Tests 10/19/16 10/20/16 10/22/16 15:44 06:05 05:15 WBC Hgb Hct Plt Count ESR BUN AST ALT Alkaline Phosphatase 296 H 220 H D 202 H 10/23/16 10/23/16 10/24/16 06:55 06:55 06:30 WBC 8.4 Hgb 10.2 L Hct 30.6 L Plt Count 471 H ESR 121 H BUN AST ALT Alkaline Phosphatase 164 H 10/24/16 06:30 WBC Hgb Hct Plt Count ESR BUN 8 AST 18 D ALT 14 D Alkaline Phosphatase 142 H Assessment Liver abscess ? pyogenic partially treated vs amebic diagnosis uncertain Plan Note ESR 120 !! Continue antibiotic Check cytology plus path stain H& E Christine Pak MD
--- NOTE | 2016-10-24 09:27 | PN ---
Physical Exam: SUBJECTIVE: Patient seen and examined by me this AM - [place] feverish overnight. Endorses mild non-productive cough yesterday, with urge to vomit after coughing paroxysm. Now much improved. Chest pain much improved. Poor PO intake. Put on ensure diet. - Mild fever overnight to 101.7. Now afebrile. - This AM denies CP, N/V, fever, chills, VILLAR, diarrhea, dysuria. Endorses mild rash/pruritus of forehead. - R CARI drained 10-20 CC of dark, serosanguinous fluid with sediment. Drainage site with no erythema or tenderness. - May need to resend fluid for Ecchino serologies/cytology Other updates: - Ecchinococcus serologies pending still - AFB stain pending - ESR 121 OBJECTIVE: Vital Signs Period Temp Pulse Resp BP Sys/Taylor Pulse Ox Last 24 Hr 98.2 F-100 F 80-111 16-20 101-133/69-79 97 GENERAL: The patient is awake, alert, and fully oriented, in no acute distress. Pleasant man, well-nourished HEAD: Normal with no signs of trauma. Hyperpigmented lesions on R forehead, which pt endorses as mild rash of few days duration. EYES: sclera anicteric, conjunctiva clear. No ptosis. NECK: Trachea midline, full range of motion, supple. LUNGS: Poor air entry. Breathing shallow. Breath sounds equal, clear to auscultation bilaterally, no wheezes, no crackles, no accessory muscle use. HEART: Regular rate and rhythm, S1, S2 without murmur, rub or gallop. ABDOMEN: Soft, nontender, nondistended, normoactive bowel sounds, no guarding, no rebound, no hepatosplenomegaly, no masses. Drainage site not tender or erythematous. CARI drained 10-20 cc of dark serosanguinous fluid with sediment. EXTREMITIES: 2+ pulses, warm, well-perfused, no edema. NEUROLOGICAL: Cranial nerves II through XII grossly intact. Normal speech, gait not observed. PSYCH: Normal mood, normal affect. SKIN: Warm, dry, normal turgor. Laboratory Results - last 24 hr CBC, BMP 10/24/16 06:30 10/24/16 06:30 10/22/16 10/22/16 10/23/16 05:15 16:00 06:55 WBC RBC Hgb Hct MCV MCH MCHC RDW Plt Count MPV Neutrophils % Lymphocytes % Monocytes % Eosinophils % Basophils % ESR 121 H Sodium Potassium Chloride Carbon Dioxide Anion Gap BUN Creatinine Random Glucose Calcium Total Bilirubin Direct Bilirubin AST ALT Alkaline Phosphatase Prot Electrophoresis Serum Total Protein 9.0 H Total Protein Albumin 2.4 L Globulin 6.6 H Albumin/Globulin Ratio 0.4 L Vgeoh-5-Vifaowymq 0.4 Lngmi-1-Szkoszwkk 1.0 Beta Globulins 1.1 Gamma Globulins 4.2 H Stool O & P Wet [place] Cancelled ELISABET M-Janak Not observed O & P Permanent Slide Cancelled 10/24/16 10/24/16 06:30 06:30 WBC 8.4 RBC 3.57 L Hgb 10.2 L Hct 30.6 L MCV 85.8 MCH 28.7 MCHC 33.4 RDW 14.5 Plt Count 471 H MPV 6.9 L Neutrophils % 65.0 Lymphocytes % 18.3 Monocytes % 12.4 H Eosinophils % 3.2 D Basophils % 1.1 ESR Sodium 131 L Potassium 3.4 L Chloride 94 L Carbon Dioxide 31 Anion Gap 6 L BUN 8 Creatinine 1.2 Random Glucose 116 H D Calcium 8.3 L Total Bilirubin 0.5 Direct Bilirubin 0.2 AST 18 D ALT 14 D Alkaline Phosphatase 142 H Prot Electrophoresis Serum Total Protein Total Protein 8.0 Albumin 1.8 L Globulin Albumin/Globulin Ratio Bxhdj-7-Emolqbeyq Egkxl-0-Aqqjnmotg Beta Globulins Gamma Globulins Stool O & P Wet [place] ELISABET M-Janak O & P Permanent Slide Microbiology 10/19/16 15:44 Blood Culture - Preliminary Blood - Peripheral Venous NO GROWTH OBTAINED AFTER 96 HOURS, INCUBATION TO CONTINUE FOR 1 DAYS. 10/19/16 15:44 Blood Culture - Preliminary Blood - Peripheral Venous NO GROWTH OBTAINED AFTER 96 HOURS, INCUBATION TO CONTINUE FOR 1 DAYS. 10/22/16 16:00 AFB Smear Concentration - Final Abscess Mycobacterial Culture - Preliminary 10/22/16 16:00 Gram Stain - Final Abscess Anaerobic Culture - Final 10/22/16 16:00 Gram Stain - Final Abscess Active Medications Generic Name Dose Route Start Last Admin Trade Name Freq PRN Reason Stop Dose Admin Acetaminophen 650 mg 10/22/16 18:30 10/24/16 01:06 Tylenol - PO 650 mg Q4H PRN Administration FEVER OR PAIN Benzocaine/Menthol 1 each 10/22/16 18:30 Cepacol Lozenge - MM PRN PRN SORE THROAT Guaifenesin 10 ml 10/22/16 18:30 10/23/16 17:41 Robitussin Dm - PO 10 ml Q4H PRN Administration COUGH HCTZ/Losartan Potassium 1 tab 10/23/16 10:00 10/23/16 10:10 Hyzaar - PO 1 tab DAILY CHRISTEN Administration Piperacillin Sod/Tazobactam 100 mls @ 200 mls/hr 10/23/16 10:00 10/24/16 02:09 Sod 4.5 gm/ Dextrose IVPB 200 mls/hr Q8H-IV CHRISTEN Administration Metronidazole 100 mls @ 100 mls/hr 10/23/16 18:00 10/24/16 01:08 Flagyl 500mg Premixed Ivpb - IVPB 100 mls/hr Q8H-IV CHRISTEN Administration Morphine Sulfate 2 mg 10/22/16 18:30 10/24/16 06:37 Morphine Injection - IVPUSH 10/29/16 18:29 2 mg Q4H CHRISTEN Administration ASSESSMENT/PLAN: Assessment: 66 yo man w/ pmh of complete HB w/ PPM who presented with continuous fevers of one month duration, now with liver abscess of unknown etiology (pyogenic vs. amoebic vs. parasitic vs. neoplasm). Pt intermittently febrile, w/ no WBC elevation, draining brown, opaque fluid w/ sediment from R catheter to CARI bulb. Endorses poor PO intake, mild pruritus, but much improved w/ resolving Chest/ RUQ pain and nonproductive cough. Ecchinococcal serologies, AFB stain, fluid cultures still pending. Currently being covered w/ abx for pyogenic and amoebic etiology. F/u on labs critical to direct tx. Problem List: Liver Abscess Sepsis Chronic fever Plan: #Liver Abscess - f/u fluid cx's, ecchino seros, AFB stain - Quant gold - cytology on drained fluid - Continue abx coverage, Zosyn/flagyl - Monitor drainage site for signs of site infxn - Qshift vitals - f/u operative report w/ IR #Sepsis - Pt much improved. Afebrile, w/ no WBC elevation - Trend fever curve - Daily CBCs - ESR 120. Repeat/trend - Recent blood cx's negative Homar Hanks MD, PGY1 Discussed w/ attending, Dr. Singleton Problem List - Problems (1) Fever Code(s): R50.9 - FEVER, UNSPECIFIED (2) Liver abscess Code(s): K75.0 - ABSCESS OF LIVER (3) Severe sepsis Code(s): A41.9 - SEPSIS, UNSPECIFIED ORGANISM R65.20 - SEVERE SEPSIS WITHOUT SEPTIC SHOCK Visit type - Emergency Visit Emergency Visit: No - New Patient This patient is new to me today: No - Critical Care Critical Care patient: No
[2016-10-24] MEDS: LOSARTAN 50MG/HCTZ 12.5MG 1 TAB (FP) PO SCH (09:55)
[2016-10-24] MEDS: FAMOTIDINE 20 MG/50 ML IVPB 50 ML IVPB SCH ×2 (12:32→22:21)
[2016-10-24] MEDS: DOCUSATE SODIUM 100 MG CAPSULE (FP) PO SCH (15:06)
--- NOTE | 2016-10-24 16:04 | PN ---
Teaching Attending Note Name of Resident: Andrea Laguerre ATTENDING PHYSICIAN STATEMENT I saw and evaluated the patient. I reviewed the resident's note and discussed the case with the resident. I agree with the resident's findings and plan as documented. SUBJECTIVE: No complaints. OBJECTIVE: Vital Signs Period Temp Pulse Resp BP Sys/Taylor Pulse Ox Last 24 Hr 98.1 F-100 F 80-111 16-20 101-133/69-75 97-99 HEART: S1S2, RRR LUNGS: Clear ABDOMEN: Soft, non-tender, non-distended, normal BS, RUQ drain in place with bloody/purulent drainage EXTREMITIES: No edema ASSESSMENT AND PLAN: This is a 66-year-old man with a history of rheumatic fever, complete heart block who presented to the ER with fevers x 1 month. 1. Severe sepsis secondary to liver abscess, pyogenic vs amebic - Tmax 100.0 overnight - Continue Zosyn, Flagyl - s/p drainage by IR 10/21 - Purulent fluid drained and drain left in place - Follow-up abscess culture, pathology - HIV negative - Entamoeba histolytica Ab positive - Parasite smear negative - Quantiferon gold, Echinococcus Ab pending - ESR 121 2. Dehydration with mild hyponatremia - Improved with IV fluid 3. Anemia, likely secondary to chronic illness - Hemoglobin is stable 4. HTN - Continue Hyzaar 5. Diarrhea - Stool O&P pending - C. difficile negative 6. History of rheumatic fever 7. History of complete heart block, pacemaker
[2016-10-24] MEDS: morphine CARPU-JECT 2 MG/1 ML DISP.SYRIN IVPUSH PRN (16:05)
--- NOTE | 2016-10-24 16:32 | PN ---
Physical Exam: SUBJECTIVE: Patient seen and examined No acute events overnight. Tmax of 100 overnight. Coughing has improved, and drainage has improved. OBJECTIVE: Vital Signs Period Temp Pulse Resp BP Sys/Taylor Pulse Ox Last 24 Hr 98.1 F-100 F 80-111 16-20 101-133/69-75 97-99 GENERAL: Awake, alert, and fully oriented, in no acute distress. HEAD: Normal with no signs of trauma. EYES: Extraocular movements intact, sclera anicteric, conjunctiva clear. No lid lag. EARS, NOSE, THROAT: Oropharynx clear without exudates. Moist mucous membranes. NECK: Normal range of motion, supple without lymphadenopathy LUNGS: Breath sounds equal, clear to auscultation bilaterally. No wheezes, and no crackles. No accessory muscle use. HEART: Regular rate and rhythm, normal S1 and S2 without murmur, rub or gallop. ABDOMEN: Soft, nontender, not distended, normoactive bowel sounds, no guarding, no rebound, no masses. Drain in place with serosanginous drainage. UPPER EXTREMITIES: 2+ radial pulses, warm, well-perfused. No cyanosis. No clubbing. No peripheral edema. LOWER EXTREMITIES: Warm, well-perfused. No calf tenderness. No peripheral edema. NEUROLOGICAL: Cranial nerves II-XII intact. Normal speech. Normal gait. PSYCHIATRIC: Cooperative. Good eye contact. Appropriate mood and affect. Laboratory Results - last 24 hr 10/20/16 10/22/16 10/24/16 11:15 05:15 06:30 WBC 8.4 RBC 3.57 L Hgb 10.2 L Hct 30.6 L MCV 85.8 MCH 28.7 MCHC 33.4 RDW 14.5 Plt Count 471 H MPV 6.9 L Neutrophils % 65.0 Lymphocytes % 18.3 Monocytes % 12.4 H Eosinophils % 3.2 D Basophils % 1.1 Sodium Potassium Chloride Carbon Dioxide Anion Gap BUN Creatinine Random Glucose Calcium Total Bilirubin Direct Bilirubin AST ALT Alkaline Phosphatase Prot Electrophoresis Serum Total Protein 9.0 H Total Protein Albumin 2.4 L Globulin 6.6 H Albumin/Globulin Ratio 0.4 L Fwwgv-7-Qdzxzcdpo 0.4 Apmqy-0-Zhjbbwzsx 1.0 Beta Globulins 1.1 Gamma Globulins 4.2 H ELISABET M-Janak Not observed [place] Screen IgG & IgM <0.91 10/24/16 06:30 WBC RBC Hgb Hct MCV MCH MCHC RDW Plt Count MPV Neutrophils % Lymphocytes % Monocytes % Eosinophils % Basophils % Sodium 131 L Potassium 3.4 L Chloride 94 L Carbon Dioxide 31 Anion Gap 6 L BUN 8 Creatinine 1.2 Random Glucose 116 H D Calcium 8.3 L Total Bilirubin 0.5 Direct Bilirubin 0.2 AST 18 D ALT 14 D Alkaline Phosphatase 142 H Prot Electrophoresis Serum Total Protein Total Protein 8.0 Albumin 1.8 L Globulin Albumin/Globulin Ratio Otzkx-2-Bfynyvpzr Cnmqc-1-Vdwgwless Beta Globulins Gamma Globulins ELISABET M-Janak [place] Screen IgG & IgM Active Medications Generic Name Dose Route Start Last Admin Trade Name Freq PRN Reason Stop Dose Admin Acetaminophen 650 mg 10/22/16 18:30 10/24/16 01:06 Tylenol - PO 650 mg Q4H PRN Administration FEVER OR PAIN Benzocaine/Menthol 1 each 10/22/16 18:30 Cepacol Lozenge - MM PRN PRN SORE THROAT Docusate Sodium 100 mg 10/24/16 10:15 10/24/16 15:06 Colace - PO Not Given DAILY CHRISTEN Guaifenesin 10 ml 10/22/16 18:30 10/23/16 17:41 Robitussin Dm - PO 10 ml Q4H PRN Administration COUGH HCTZ/Losartan Potassium 1 tab 10/23/16 10:00 10/24/16 09:55 Hyzaar - PO 1 tab DAILY CHRISTEN Administration Piperacillin Sod/Tazobactam 100 mls @ 200 mls/hr 10/23/16 10:00 10/24/16 09:55 Sod 4.5 gm/ Dextrose IVPB 200 mls/hr Q8H-IV CHRISTEN Administration Metronidazole 100 mls @ 100 mls/hr 10/23/16 18:00 10/24/16 09:55 Flagyl 500mg Premixed Ivpb - IVPB 100 mls/hr Q8H-IV CHRISTEN Administration Famotidine/Sodium Chloride 50 mls @ 100 mls/hr 10/24/16 12:00 10/24/16 12:32 Pepcid 20 Mg Premixed Ivpb - IVPB 100 mls/hr BID CHRISTEN Administration Morphine Sulfate 1 mg 10/24/16 10:09 10/24/16 16:05 Morphine Injection - IVPUSH 10/29/16 18:29 1 mg Q4H PRN Administration PAIN Senna 1 tab 10/24/16 22:00 Senna - PO HS [facility] ASSESSMENT/PLAN: 66 yo M with PMH of complete heart block who presented to the ED with continuous fevers for one month found to have liver lesions admitted to telemetry for severe sepsis likely secondary to liver abscesses. #Severe sepsis likely secondary to liver abscess s/p drainage on 10/22 with purulent fluid -Drain in place 385 ml yesterday -Tmax of 100 overnight -Continue Zosyn 4.5 gm IVPB and Flagyl 500 mg IVPB -Lactic acidosis improved -E. Histolytica Ab +, [Echinococcus, quant gold, stool ova/parasites] pending -Lyme negative -HIV negative -Negative PPD #Hyponatremia -131 today -Continue to monitor #Diarrhea -Improved -C. Diff ag/toxin negative -Stool studies pending #Anemia -Likely anemia of chronic disease -Stable -Continue to monitor #HTN -Continue home medication (Hyzaar 50/12.5 1 tab PO daily) #DVT ppx -SCD's Visit type - Emergency Visit Emergency Visit: No - New Patient This patient is new to me today: No - Critical Care Critical Care patient: No
--- NOTE | 2016-10-24 17:45 | PATH ---
Cytology Non-Gynecological Report Patient Name: SHAWN LUNA Med. Rec. #: [id number] /Age/Gender: 1950 (Age: 66) / M Account: [id number] Location: [facility] MED/SURG Taken: 10/22/2016 Received: 10/23/2016 Reported: 10/24/2016 Physicians: Clemencia Machuca M.D. Radhika Hariharan, M.D. Peter B. Berkey, M.D. Specimen(s) Received LIVER ABSCESS Clinical History Liver abscess Final Diagnosis LIVER ABSCESS, FINE NEEDLE ASPIRATION: NECROINFLAMMATORY DEBRIS, INFLAMMATORY CELLS AND UNICELLULAR APPEARING STRUCTURES (SEE COMMENT). Comment: Unicellular appearing structures are visualized with PAP and PAS stains. While not definitive, the structures are suggestive of protozoan organisms (Entamoeba). Clinical correlations and correlations is pending microbiology status is suggested. The case was discussed with Dr. David on 10/24/16. Electronically Signed Aden Diaz M.D. Gross Description Received is 50 cc of yellow-brown colored fluid in 50% alcohol. Five Pap stained cytofunnel slides, PAS stained cytofunnel slide and one cell block are made.
[2016-10-24] MEDS: SENNOSIDES 8.6MG TABLET (FP) PO SCH (22:21)
[2016-10-25] MEDS: METRONIDAZOLE 500 MG PREMIXED 100 ML IVPB SCH ×3 (01:49→19:27)
[2016-10-25] MEDS: PIPERACILLIN/TAZOB 4.5 GM 4.5 GM in DEXTROSE 5%-WATER 100 ML IVPB SCH ×3 (03:00→17:43)
--- NOTE | 2016-10-25 07:27 | PN ---
Physical Exam: SUBJECTIVE: Patient seen by me this AM - Endorses feeling feverish overnight; poor appetite this AM. States he feels mild throat congestion w/ persistent urge to cough up sputum. Overall feels worse today. No other major complaints - Less drainage from CARI drain today. Same consistency as prior fluid, brown/ opaque. Less than 10 cc's Other updates: - No growth from abscess aspirate - Path report significant for possible amoeba on stain. Sample sent to [facility] - AB stain negative OBJECTIVE: Vital Signs Period Temp Pulse Resp BP Sys/Taylor Pulse Ox Last 24 Hr 98.1 F-100.5 F 78-91 16-20 109-121/70-79 99-99 GENERAL: The patient is awake, alert, and fully oriented, in no acute distress. Pleasant man, well-nourished HEAD: Normal with no signs of trauma. Hyperpigmented lesions on R forehead, which pt endorses as mild rash of few days duration. EYES: sclera anicteric, conjunctiva clear. No ptosis. NECK: Trachea midline, full range of motion, supple. LUNGS: Poor air entry. Breathing shallow. Breath sounds equal, clear to auscultation bilaterally, no wheezes, no crackles, no accessory muscle use. HEART: Regular rate and rhythm, S1, S2 without murmur, rub or gallop. ABDOMEN: Soft, nontender, nondistended, normoactive bowel sounds, no guarding, no rebound, no hepatosplenomegaly, no masses. Drainage site not tender or erythematous. CARI drained 10-20 cc of dark serosanguinous fluid with sediment. EXTREMITIES: 2+ pulses, warm, well-perfused, no edema. NEUROLOGICAL: Cranial nerves II through XII grossly intact. Normal speech, gait not observed. PSYCH: Normal mood, normal affect. SKIN: Warm, dry, normal turgor. Laboratory Results - last 24 hr CBC, BMP 10/24/16 06:30 10/24/16 06:30 10/20/16 10/24/16 10/24/16 11:15 06:30 06:30 WBC 8.4 RBC 3.57 L Hgb 10.2 L Hct 30.6 L MCV 85.8 MCH 28.7 MCHC 33.4 RDW 14.5 Plt Count 471 H MPV 6.9 L Neutrophils % 65.0 Lymphocytes % 18.3 Monocytes % 12.4 H Eosinophils % 3.2 D Basophils % 1.1 Sodium 131 L Potassium 3.4 L Chloride 94 L Carbon Dioxide 31 Anion Gap 6 L BUN 8 Creatinine 1.2 Random Glucose 116 H D Calcium 8.3 L Total Bilirubin 0.5 Direct Bilirubin 0.2 AST 18 D ALT 14 D Alkaline Phosphatase 142 H Total Protein 8.0 Albumin 1.8 L Lyme Screen IgG & IgM <0.91 Active Medications Generic Name Dose Route Start Last Admin Trade Name Freq PRN Reason Stop Dose Admin Acetaminophen 650 mg 10/22/16 18:30 10/24/16 22:22 Tylenol - PO 650 mg Q4H PRN Administration FEVER OR PAIN Benzocaine/Menthol 1 each 10/22/16 18:30 Cepacol Lozenge - MM PRN PRN SORE THROAT Docusate Sodium 100 mg 10/24/16 10:15 10/24/16 15:06 Colace - PO Not Given DAILY CHRISTEN Guaifenesin 10 ml 10/22/16 18:30 10/23/16 17:41 Robitussin Dm - PO 10 ml Q4H PRN Administration COUGH HCTZ/Losartan Potassium 1 tab 10/23/16 10:00 10/24/16 09:55 Hyzaar - PO 1 tab DAILY CHRISTEN Administration Piperacillin Sod/Tazobactam 100 mls @ 200 mls/hr 10/23/16 10:00 10/25/16 03:00 Sod 4.5 gm/ Dextrose IVPB 200 mls/hr Q8H-IV CH[facility]STEN Administration Metronidazole 100 mls @ 100 mls/hr 10/23/16 18:00 10/25/16 01:49 Flagyl 500mg Premixed Ivpb - IVPB 100 mls/hr Q8H-IV [facility]STEN Administration Famotidine/Sodium Chloride 50 mls @ 100 mls/hr 10/24/16 12:00 10/24/16 22:21 Pepcid 20 Mg Premixed Ivpb - IVPB 100 mls/hr BID CH[facility]STEN Administration Morphine Sulfate 1 mg 10/24/16 10:09 10/24/16 16:05 Morphine Injection - IVPUSH 10/29/16 18:29 1 mg Q4H PRN Administration PAIN Senna 1 tab 10/24/16 22:00 10/24/16 22:21 Senna - PO 1 tab HS CHRISTEN Administration Microbiology 10/19/16 15:44 Blood - Peripheral Venous Blood Culture - Final NO GROWTH AFTER 5 DAYS INCUBATION 10/19/16 15:44 Blood - Peripheral Venous Blood Culture - Final NO GROWTH AFTER 5 DAYS INCUBATION 10/22/16 16:00 Abscess Gram Stain - Final 10/22/16 16:00 Abscess Body Fluid Culture - Preliminary NO AEROBIC GROWTH, 24 HRS 10/22/16 16:00 Abscess AFB Smear Concentration - Final 10/22/16 16:00 Abscess Mycobacterial Culture - Preliminary 10/22/16 16:00 Abscess Gram Stain - Final 10/22/16 16:00 Abscess Anaerobic Culture - Final 10/21/16 14:25 Stool Clostridium difficile Antigen ([facility]) - Final 10/21/16 14:25 Stool Clostridium difficile Toxin Assay - Final 10/20/16 11:15 Blood - Peripheral Venous TB Test (QFT) ([facility]) - Preliminary 10/20/16 11:15 Blood - Peripheral Venous Blood Parasites Smear ([facility]) - Final No growth. ASSESSMENT/PLAN: Assessment: 66 yo man w/ pmh of complete HB w/ PPM who presented with continuous fevers of one month duration, now with liver abscess of unknown etiology (pyogenic vs. amoebic vs. parasitic vs. neoplasm). Pt continues to be intermittently febrile, w/ no WBC elevation. CARI drain w/ decreased drainage of brown, opaque fluid w/ sediment. Endorses continued poor PO intake, fevers. Ecchinococcal serologies pending, fluid cultures w/ no growth and AFB stain negative. Continuing coverage w/ abx for pyogenic and amoebic etiology. Problem List: Liver Abscess Sepsis Chronic fever Plan: #Liver Abscess - AFB stain negative - No growth on cultures - path report notable for possible amoeba - Continue abx coverage, Zosyn/flagyl - Monitor drainage site for signs of site infxn - Qshift vitals - f/u operative report w/ IR #Sepsis - Pt febrile overnight - Continue to trend fever curve - Daily CBCs - ESR 120 on 10/24. Repeat/trend - Recent blood cx's negative Homar Hanks MD, PGY1 Will discuss w/ attending, Dr. David Problem List - Problems (1) Fever Code(s): R50.9 - FEVER, UNSPECIFIED (2) Liver abscess Code(s): K75.0 - ABSCESS OF LIVER (3) Severe sepsis Code(s): A41.9 - SEPSIS, UNSPECIFIED ORGANISM R65.20 - SEVERE SEPSIS WITHOUT SEPTIC SHOCK Visit type - Emergency Visit Emergency Visit: No - New Patient This patient is new to me today: No - Critical Care Critical Care patient: No
[2016-10-25 08:13] LABS: BASOPHIL 2.4 % (0-2.0); EOSINOPHIL 3.7 % (0-4.5); MCH 28.4 pg (25.7-33.7); MCHC 32.8 g/dl (32.0-35.9); MEAN CELL VOLUME 86.7 fl (80-96); MEAN PLT VOLUME 6.9 fl (7.5-11.1); NEUTROPHILS 68.1 % (42.8-82.8); PLATELET COUNT 460 K/MM3 (134-434); RDW 14.6 % (11.9-15.9); WHITE BLOOD COUNT 7.1 K/mm3 (4.0-10.0)
[2016-10-25 08:24] LABS: ALBUMIN 1.7 g/dl (3.4-5.0); ALK PHOS 135 U/L (45-117); ANION GAP 8 (8-16); BILIRUBIN,TOTAL 0.4 mg/dL (0.2-1.0); CALCIUM 7.9 mg/dL (8.5-10.1); CO2 31 mmol/L (21-32); CREATININE 1.3 mg/dL (0.7-1.3); GLUCOSE,RANDOM 144 mg/dL (74-106); SGPT/ALT 14 U/L (12-78)
[2016-10-25 08:33] LABS: BILIRUBIN,DIRECT < 0.1 mg/dL (0.0-0.2); SGOT/AST 35 U/L (15-37)
[2016-10-25] MEDS ORDERED: PIPERACILLIN/TAZOBACTAM 4.5 GM VIAL IVPB ONE ×3 (10:00→20:41)
[2016-10-25] MEDS ORDERED: DEXTROSE 5%-WATER 100 ML IVPB ONE ×3 (10:01→20:42)
[2016-10-25] MEDS: FAMOTIDINE 20 MG/50 ML IVPB 50 ML IVPB SCH ×2 (10:09→22:11)
[2016-10-25] MEDS: LOSARTAN 50MG/HCTZ 12.5MG 1 TAB (FP) PO SCH (10:10)
[2016-10-25] MEDS: DOCUSATE SODIUM 100 MG CAPSULE (FP) PO SCH (10:11)
[2016-10-25] MEDS: ACETAMINOPHEN 325 MG TABLET (FP) PO PRN (10:11)
[2016-10-25] MEDS: morphine CARPU-JECT 2 MG/1 ML DISP.SYRIN IVPUSH PRN (12:00)
--- NOTE | 2016-10-25 14:55 | PN ---
Teaching Attending Note Name of Resident: Andrea Laguerre ATTENDING PHYSICIAN STATEMENT I saw and evaluated the patient. I reviewed the resident's note and discussed the case with the resident. I agree with the resident's findings and plan as documented. SUBJECTIVE: No complaints. OBJECTIVE: Vital Signs Period Temp Pulse Resp BP Sys/Taylor Pulse Ox Last 24 Hr 98.1 F-100.5 F 78-101 16-20 91-121/54-79 99 HEART: S1S2, RRR LUNGS: Clear ABDOMEN: Soft, non-tender, non-distended, normal BS, RUQ drain in place with bloody/purulent drainage EXTREMITIES: No edema ASSESSMENT AND PLAN: This is a 66-year-old man with a history of rheumatic fever, complete heart block who presented to the ER with fevers x 1 month. 1. Severe sepsis secondary to liver abscess, pyogenic vs amebic - Temp 100.5 last evening - Continue Zosyn, Flagyl - s/p drainage by IR 10/21 - Purulent fluid drained and drain left in place - Culture negative so far - Pathology suggestive of Entamoeba - HIV negative - Entamoeba histolytica Ab positive - Parasite smear negative - Quantiferon gold, Echinococcus Ab pending - ESR 121 2. Dehydration with mild hyponatremia - Improved with IV fluid - Sodium stable 3. Anemia, likely secondary to chronic illness - Hemoglobin is stable 4. HTN - Continue Hyzaar 5. Diarrhea - Stool O&P pending - C. difficile negative 6. History of rheumatic fever 7. History of complete heart block, pacemaker
--- NOTE | 2016-10-25 15:16 | PN ---
Physical Exam: SUBJECTIVE: Patient seen and examined No acute events overnight. No complaints this morning. OBJECTIVE: Vital Signs Period Temp Pulse Resp BP Sys/Taylor Pulse Ox Last 24 Hr 98.1 F-100.5 F 78-101 16-20 91-121/54-79 99 GENERAL: Awake, alert, and fully oriented, in no acute distress. HEAD: Normal with no signs of trauma. EYES: Extraocular movements intact, sclera anicteric, conjunctiva clear. No lid lag. EARS, NOSE, THROAT: Oropharynx clear without exudates. Moist mucous membranes. NECK: Normal range of motion, supple without lymphadenopathy LUNGS: Breath sounds equal, clear to auscultation bilaterally. No wheezes, and no crackles. No accessory muscle use. HEART: Regular rate and rhythm, normal S1 and S2 without murmur, rub or gallop. ABDOMEN: Soft, nontender, not distended, normoactive bowel sounds, no guarding, no rebound, no masses. Drain in place with serosanginous drainage. UPPER EXTREMITIES: 2+ radial pulses, warm, well-perfused. No cyanosis. No clubbing. No peripheral edema. LOWER EXTREMITIES: Warm, well-perfused. No calf tenderness. No peripheral edema. NEUROLOGICAL: Cranial nerves II-XII intact. Normal speech. Normal gait. PSYCHIATRIC: Cooperative. Good eye contact. Appropriate mood and affect. Laboratory Results - last 24 hr 10/20/16 10/25/16 10/25/16 11:15 06:30 06:30 WBC 7.1 RBC 3.65 L Hgb 10.4 L Hct 31.6 L MCV 86.7 MCH 28.4 MCHC 32.8 RDW 14.6 Plt Count 460 H MPV 6.9 L Neutrophils % 68.1 Lymphocytes % 17.0 Monocytes % 8.8 Eosinophils % 3.7 Basophils % 2.4 H Sodium 132 L Potassium 4.2 D Chloride 93 L Carbon Dioxide 31 Anion Gap 8 BUN 9 Creatinine 1.3 Random Glucose 144 H D Calcium 7.9 L Total Bilirubin 0.4 Direct Bilirubin < 0.1 AST 35 D ALT 14 Alkaline Phosphatase 135 H Total Protein 8.0 Albumin 1.7 L E. histolytica Antibody Positive H Active Medications Generic Name Dose Route Start Last Admin Trade Name Freq PRN Reason Stop Dose Admin Acetaminophen 650 mg 10/22/16 18:30 10/25/16 10:11 Tylenol - PO 650 mg Q4H PRN Administration FEVER OR PAIN Benzocaine/Menthol 1 each 10/22/16 18:30 Cepacol Lozenge - MM PRN PRN SORE THROAT Docusate Sodium 100 mg 10/24/16 10:15 10/25/16 10:11 Colace - PO Not Given DAILY CHRISTEN Guaifenesin 10 ml 10/22/16 18:30 10/23/16 17:41 Robitussin Dm - PO 10 ml Q4H PRN Administration COUGH HCTZ/Losartan Potassium 1 tab 10/23/16 10:00 10/25/16 10:10 Hyzaar - PO 1 tab DAILY CH[facility]STEN Administration Piperacillin Sod/Tazobactam 100 mls @ 200 mls/hr 10/23/16 10:00 10/25/16 10:09 Sod 4.5 gm/ Dextrose IVPB 200 mls/hr Q8H-IV [facility]STEN Administration Metronidazole 100 mls @ 100 mls/hr 10/23/16 18:00 10/25/16 10:09 Flagyl 500mg Premixed Ivpb - IVPB 100 mls/hr Q8H-IV [facility]STEN Administration Famotidine/Sodium Chloride 50 mls @ 100 mls/hr 10/24/16 12:00 10/25/16 10:09 Pepcid 20 Mg Premixed Ivpb - IVPB 100 mls/hr BID CH[facility]STEN Administration Morphine Sulfate 1 mg 10/24/16 10:09 10/25/16 12:00 Morphine Injection - IVPUSH 10/29/16 18:29 1 mg Q4H PRN Administration PAIN Senna 1 tab 10/24/16 22:00 10/24/16 22:21 Senna - PO 1 tab HS CHRISTEN Administration ASSESSMENT/PLAN: 66 yo M with PMH of complete heart block who presented to the ED with continuous fevers for one month found to have liver lesions admitted to telemetry for severe sepsis likely secondary to liver abscesses. #Severe sepsis likely secondary to liver abscess s/p drainage on 10/22 with purulent fluid -Drain in place drained 175 ml yesterday -Tmax of 100.5 overnight -Continue Zosyn 4.5 gm IVPB and Flagyl 500 mg IVPB -Lactic acidosis improved -E. Histolytica Ab + in serum and abscess. [Echinococcus, quant gold, stool ova/ parasites] pending -Lyme negative -HIV negative -Negative PPD #Hyponatremia -132 -Continue to monitor #Diarrhea -Improved -C. Diff ag/toxin negative -Stool studies pending #Constipation -Began 10/24 -Started on Senna/Colace #Anemia -Likely anemia of chronic disease -Stable -Continue to monitor H/H #GERD -chronic -Continue famotidine 20 mg IVPB #HTN -Continue home medication (Hyzaar 50/12.5 1 tab PO daily) #DVT ppx -SCD's Visit type - Emergency Visit Emergency Visit: No - New Patient This patient is new to me today: No - Critical Care Critical Care patient: No
[2016-10-25] MEDS ORDERED: GABAPENTIN 100 MG CAPSULE (FP) PO ONE (15:33)
--- NOTE | 2016-10-25 17:00 | PN ---
Teaching Attending Note Name of Resident: Homar Hanks ATTENDING PHYSICIAN STATEMENT I saw and evaluated the patient. I reviewed the resident's note and discussed the case with the resident. I agree with the resident's findings and plan as documented. SUBJECTIVE: still some fevers eating better OBJECTIVE: Vital Signs Period Temp Pulse Resp BP Sys/Taylor Pulse Ox Last 24 Hr 98.7 F-99.4 F 78-101 16-20 91-121/54-79 97-99 cor-rrr lungs clear abd soft,nt +drain ext no edema CBC, BMP 10/25/16 06:30 10/25/16 06:30 Microbiology 10/20/16 11:15 Blood - Peripheral Venous TB Test (QFT) ([facility]) - Preliminary 10/22/16 16:00 Abscess Gram Stain - Final 10/22/16 16:00 Abscess Body Fluid Culture - Final NO GROWTH OF AEROBIC ORGANISMS AFTER 48 HOURS INCUBATION 10/22/16 16:00 Abscess Anaerobic Culture - Preliminary No growth. 10/19/16 15:44 Blood - Peripheral Venous Blood Culture - Final NO GROWTH AFTER 5 DAYS INCUBATION 10/19/16 15:44 Blood - Peripheral Venous Blood Culture - Final NO GROWTH AFTER 5 DAYS INCUBATION 10/22/16 16:00 Abscess AFB Smear Concentration - Final 10/22/16 16:00 Abscess Mycobacterial Culture - Preliminary 10/22/16 16:00 Abscess Gram Stain - Final 10/22/16 16:00 Abscess Anaerobic Culture - Final 10/21/16 14:25 Stool Clostridium difficile Antigen ([facility]) - Final 10/21/16 14:25 Stool Clostridium difficile Toxin Assay - Final 10/20/16 11:15 Blood - Peripheral Venous Blood Parasites Smear ([facility]) - Final No growth. pathology suggestive of amoeba ASSESSMENT AND PLAN: liver abscess- mostlikely amebic, ?superinfected continue zosyn/flagyl day #5 f/u serologies and send out to state encourage nutrition Problem List - Problems (1) Liver abscess Code(s): K75.0 - ABSCESS OF LIVER (2) Elevated total protein Code(s): R77.8 - OTHER SPECIFIED ABNORMALITIES OF PLASMA PROTEINS
[2016-10-25] MEDS ORDERED: DICLOFENAC SODIUM 25 MG TABLET.DR PO ONE (18:56)
[2016-10-25] MEDS: guaiFENesin/D-METHORPHAN HB 10 ML UNIT-DOSE CUPS PO PRN (22:34)
[2016-10-25] MEDS: SENNOSIDES 8.6MG TABLET (FP) PO SCH (22:34)
[2016-10-26] MEDS: METRONIDAZOLE 500 MG PREMIXED 100 ML IVPB SCH ×3 (01:25→17:54)
[2016-10-26] MEDS: PIPERACILLIN/TAZOB 4.5 GM 4.5 GM in DEXTROSE 5%-WATER 100 ML IVPB SCH ×3 (02:06→17:54)
--- NOTE | 2016-10-26 07:25 | PN ---
Physical Exam: SUBJECTIVE: Patient seen by me this AM. - Feels much better today. States voltaran mitigated shoulder,RUQ pain. Poor appetite still. Endorses feeling feverish overnight again. Can take full breath w/ no limitation due to pain now. Endorses using IS 3x yesterday. - Borderline fever overnight to 99.4 - No major overnight events. - Drainage from CARI drain <10 cc. Per patient, less opaque with "white and black " sediment Other updates: - Quant gold +. AFB smear -. No growth on aspirate cultures. BC's no growth - No WBC elevation or left shift OBJECTIVE: Vital Signs Period Temp Pulse Resp BP Sys/Taylor Pulse Ox Last 24 Hr 97.8 F-99.4 F 84-101 16-20 86-100/54-68 97 GENERAL: The patient is awake, alert, and fully oriented, in no acute distress. Pleasant man, well-nourished HEAD: Normal with no signs of trauma. Hyperpigmented lesions on R forehead, which pt endorses as mild rash of few days duration. Pruritus across forehead. EYES: sclera anicteric, conjunctiva clear. No ptosis. NECK: Trachea midline, full range of motion, supple. LUNGS: Good air movement, much improved. Breath sounds equal, clear to auscultation bilaterally, no wheezes, no crackles, no accessory muscle use. HEART: Regular rate and rhythm, S1, S2 without murmur, rub or gallop. ABDOMEN: Soft, nontender, nondistended, normoactive bowel sounds, no guarding, no rebound, no hepatosplenomegaly, no masses. Drainage site not tender or erythematous. CARI drained 10 cc of light brown serosanguinous fluid with sediment. EXTREMITIES: 2+ pulses, warm, well-perfused, no edema. NEUROLOGICAL: Cranial nerves II through XII grossly intact. Normal speech, gait not observed. PSYCH: Normal mood, normal affect. SKIN: Warm, dry, normal turgor. Laboratory Results - last 24 hr CBC, BMP 10/26/16 06:45 10/26/16 06:45 10/20/16 10/25/16 10/25/16 11:15 06:30 06:30 WBC 7.1 RBC 3.65 L Hgb 10.4 L Hct 31.6 L MCV 86.7 MCH 28.4 MCHC 32.8 RDW 14.6 Plt Count 460 H MPV 6.9 L Neutrophils % 68.1 Lymphocytes % 17.0 Monocytes % 8.8 Eosinophils % 3.7 Basophils % 2.4 H Sodium 132 L Potassium 4.2 D Chloride 93 L Carbon Dioxide 31 Anion Gap 8 BUN 9 Creatinine 1.3 Random Glucose 144 H D Calcium 7.9 L Total Bilirubin 0.4 Direct Bilirubin < 0.1 AST 35 D ALT 14 Alkaline Phosphatase 135 H Total Protein 8.0 Albumin 1.7 L E. histolytica Antibody Positive H Active Medications Generic Name Dose Route Start Last Admin Trade Name Freq PRN Reason Stop Dose Admin Acetaminophen 650 mg 10/22/16 18:30 10/25/16 10:11 Tylenol - PO 650 mg Q4H PRN Administration FEVER OR PAIN Benzocaine/Menthol 1 each 10/22/16 18:30 Cepacol Lozenge - MM PRN PRN SORE THROAT Docusate Sodium 100 mg 10/24/16 10:15 10/25/16 10:11 Colace - PO Not Given DAILY CHRISTEN Guaifenesin 10 ml 10/22/16 18:30 10/25/16 22:34 Robitussin Dm - PO 10 ml Q4H PRN Administration COUGH HCTZ/Losartan Potassium 1 tab 10/23/16 10:00 10/25/16 10:10 Hyzaar - PO 1 tab DAILY CH[facility]STEN Administration Piperacillin Sod/Tazobactam 100 mls @ 200 mls/hr 10/23/16 10:00 10/26/16 02:06 Sod 4.5 gm/ Dextrose IVPB 200 mls/hr Q8H-IV [facility]STEN Administration Metronidazole 100 mls @ 100 mls/hr 10/23/16 18:00 10/26/16 01:25 Flagyl 500mg Premixed Ivpb - IVPB 100 mls/hr Q8H-IV [facility]STEN Administration Famotidine/Sodium Chloride 50 mls @ 100 mls/hr 10/24/16 12:00 10/25/16 22:11 Pepcid 20 Mg Premixed Ivpb - IVPB 100 mls/hr BID [facility]STEN Administration Morphine Sulfate 1 mg 10/24/16 10:09 10/25/16 12:00 Morphine Injection - IVPUSH 10/29/16 18:29 1 mg Q4H PRN Administration PAIN Senna 1 tab 10/24/16 22:00 10/25/16 22:34 Senna - PO Not Given HS [facility] Microbiology 10/20/16 11:15 Blood - Peripheral Venous TB Test (QFT) ([facility]) - Final 10/22/16 16:00 Abscess Gram Stain - Final 10/22/16 16:00 Abscess Body Fluid Culture - Final NO GROWTH OF AEROBIC ORGANISMS AFTER 48 HOURS INCUBATION 10/22/16 16:00 Abscess Anaerobic Culture - Preliminary No growth. 10/19/16 15:44 Blood - Peripheral Venous Blood Culture - Final NO GROWTH AFTER 5 DAYS INCUBATION 10/19/16 15:44 Blood - Peripheral Venous Blood Culture - Final NO GROWTH AFTER 5 DAYS INCUBATION 10/22/16 16:00 Abscess AFB Smear Concentration - Final 10/22/16 16:00 Abscess Mycobacterial Culture - Preliminary 10/22/16 16:00 Abscess Gram Stain - Final 10/22/16 16:00 Abscess Anaerobic Culture - Final 10/21/16 14:25 Stool Clostridium difficile Antigen ([facility]) - Final 10/21/16 14:25 Stool Clostridium difficile Toxin Assay - Final 10/20/16 11:15 Blood - Peripheral Venous Blood Parasites Smear ([facility]) - Final No growth. ASSESSMENT/PLAN: Assessment: 66 yo man w/ pmh of complete HB w/ PPM who presented with continuous fevers of one month duration, now with liver abscess of unknown etiology (pyogenic vs. amoebic vs. parasitic vs. neoplasm). Pt no fever overnight or WBC, with improving CP on Voltaren?. CARI drain w/ minimal drainage of brown fluid w/ sediment. Endorses continued poor PO intake and feel feverish, but breathing much improved w/ shoulder pain. Ecchinococcal serologies still pending, quant gold + and AFB stain negative. Continuing current abx course Zosyn/Flagyl for abscess, f/u pending studies and CT abdomen on Saturday to re-evaluate abscess. Problem List: Liver Abscess Sepsis Chronic fever Plan: #Liver Abscess - CT on saturday - AFB stain negative - No growth on cultures - path report notable for possible amoeba - Continue Zosyn/flagyl over weekend - Monitor drainage site for signs of site infxn - Qshift vitals - f/u operative report w/ IR #Sepsis - Repeat CRP, ESR - Continue to trend fever curve - Daily CBCs - Recent blood cx's negative Homar Hanks MD, PGY1 Plan per Attending, Dr. Singleton Problem List - Problems (1) Fever Code(s): R50.9 - FEVER, UNSPECIFIED (2) Liver abscess Code(s): K75.0 - ABSCESS OF LIVER (3) Severe sepsis Code(s): A41.9 - SEPSIS, UNSPECIFIED ORGANISM R65.20 - SEVERE SEPSIS WITHOUT SEPTIC SHOCK Visit type - Emergency Visit Emergency Visit: No - New Patient This patient is new to me today: No - Critical Care Critical Care patient: No
[2016-10-26 08:25] LABS: BASOPHIL 1.9 % (0-2.0); EOSINOPHIL 3.9 % (0-4.5); MCH 28.7 pg (25.7-33.7); MCHC 33.1 g/dl (32.0-35.9); MEAN CELL VOLUME 86.5 fl (80-96); NEUTROPHILS 53.4 % (42.8-82.8); PLATELET COUNT 499 K/MM3 (134-434); RDW 14.7 % (11.9-15.9)
[2016-10-26 08:40] LABS: ALBUMIN 1.7 g/dl (3.4-5.0); ALK PHOS 140 U/L (45-117); ANION GAP 5 (8-16); BILIRUBIN,DIRECT 0.1 mg/dL (0.0-0.2); BILIRUBIN,TOTAL 0.2 mg/dL (0.2-1.0); CALCIUM 8.2 mg/dL (8.5-10.1); CO2 33 mmol/L (21-32); CREATININE 1.2 mg/dL (0.7-1.3); GLUCOSE,RANDOM 105 mg/dL (74-106); SGOT/AST 19 U/L (15-37); SGPT/ALT 12 U/L (12-78); TOT PROT 7.6 g/dl (6.4-8.2)
[2016-10-26] MEDS ORDERED: POTASSIUM CHLORIDE ORAL LIQUID 20 MEQ/15 ML PO ONE (09:30)
[2016-10-26] MEDS ORDERED: DEXTROSE 5%-WATER 100 ML IVPB ONE ×3 (10:02→22:30)
[2016-10-26] MEDS ORDERED: PIPERACILLIN/TAZOBACTAM 4.5 GM VIAL IVPB ONE ×3 (10:02→22:30)
[2016-10-26] MEDS: FAMOTIDINE 20 MG/50 ML IVPB 50 ML IVPB SCH ×2 (10:14→22:36)
[2016-10-26] MEDS: LOSARTAN 50MG/HCTZ 12.5MG 1 TAB (FP) PO SCH (11:04)
[2016-10-26] MEDS: DOCUSATE SODIUM 100 MG CAPSULE (FP) PO SCH (11:18)
[2016-10-26] MEDS: DICLOFENAC SODIUM 25 MG TABLET.DR PO SCH ×2 (13:07→22:37)
[2016-10-26] MEDS ORDERED: PT OWN MED DRAWER 7, Y5N ONE ×2 (13:10→22:32)
--- NOTE | 2016-10-26 13:43 | PN ---
Teaching Attending Note Name of Resident: Andrea Laguerre ATTENDING PHYSICIAN STATEMENT I saw and evaluated the patient. I reviewed the resident's note and discussed the case with the resident. I agree with the resident's findings and plan as documented. SUBJECTIVE: No complaints. OBJECTIVE: Vital Signs Period Temp Pulse Resp BP Sys/Taylor Pulse Ox Last 24 Hr 97.8 F-99.4 F 84-101 16-20 86-97/54-77 HEART: S1S2, RRR LUNGS: Clear ABDOMEN: Soft, non-tender, non-distended, normal BS, RUQ drain in place with bloody drainage EXTREMITIES: No edema ASSESSMENT AND PLAN: This is a 66-year-old man with a history of rheumatic fever, complete heart block who presented to the ER with fevers x 1 month. 1. Severe sepsis secondary to liver abscess, pyogenic vs amebic - Afebrile - Continue Zosyn, Flagyl - s/p drainage by IR 10/21 - Purulent fluid drained and drain left in place - Culture negative so far - Pathology suggestive of Entamoeba - Repeat CT on 10/29 - HIV negative - Entamoeba histolytica Ab positive - Parasite smear negative - Quantiferon gold positive, PPD negative - Echinococcus Ab negative - ESR 121 on 10/23, C-RP 7.4 on 10/22 - will repeat 2. Dehydration with mild hyponatremia - Improved with IV fluid - Sodium stable 3. Anemia, likely secondary to chronic illness - Hemoglobin is stable 4. HTN - Continue Hyzaar 5. Diarrhea - C. difficile negative 6. History of rheumatic fever 7. History of complete heart block, pacemaker
--- NOTE | 2016-10-26 13:43 | PN ---
Progress Note, Physician Chief Complaint: ID Feeling much better !! Temps coming ? staying down Zosyn and metronidazole - Current Medication List Current Medications: Active Medications Acetaminophen (Tylenol -) 650 mg PO Q4H PRN PRN Reason: FEVER OR PAIN Last Admin: 10/25/16 10:11 Dose: 650 mg Benzocaine/Menthol (Cepacol Lozenge -) 1 each MM PRN PRN PRN Reason: SORE THROAT Diclofenac Sodium (Voltaren -) 50 mg PO TID [facility] Last Admin: 10/26/16 13:07 Dose: 50 mg Docusate Sodium (Colace -) 100 mg PO DAILY [facility] Last Admin: 10/26/16 11:18 Dose: Not Given Guaifenesin (Robitussin Dm -) 10 ml PO Q4H PRN PRN Reason: COUGH Last Admin: 10/25/16 22:34 Dose: 10 ml HCTZ/Losartan Potassium (Hyzaar -) 1 tab PO DAILY [facility] Last Admin: 10/26/16 11:04 Dose: Not Given Piperacillin Sod/Tazobactam (Sod 4.5 gm/ Dextrose) 100 mls @ 200 mls/hr IVPB Q8H-IV [facility] Last Admin: 10/26/16 10:57 Dose: 200 mls/hr Metronidazole (Flagyl 500mg Premixed Ivpb -) 100 mls @ 100 mls/hr IVPB Q8H-IV [facility] Last Admin: 10/26/16 11:43 Dose: 100 mls/hr Famotidine/Sodium Chloride (Pepcid 20 Mg Premixed Ivpb -) 50 mls @ 100 mls/hr IVPB BID [facility] Last Admin: 10/26/16 10:14 Dose: 100 mls/hr Morphine Sulfate (Morphine Injection -) 1 mg IVPUSH Q4H PRN PRN Reason: PAIN Stop: 10/29/16 18:29 Last Admin: 10/25/16 12:00 Dose: 1 mg Senna (Senna -) 1 tab PO HS [facility] Last Admin: 10/25/16 22:34 Dose: Not Given - Objective Vital Signs: Vital Signs Temperature 98.2 F 10/26/16 09:00 Pulse Rate 86 10/26/16 09:00 Respiratory Rate 18 10/26/16 09:00 Blood Pressure 96/77 10/26/16 09:00 O2 Sat by Pulse Oximetry (%) 97 10/25/16 09:00 Constitutional: Yes: Well Nourished, No Distress HENT: Yes: WNL, Atraumatic Neck: Yes: WNL, Supple Cardiovascular: Yes: Regular Rate and Rhythm, S1, S2. No: Murmur Respiratory: Yes: WNL, Regular, CTA Bilaterally Gastrointestinal: Yes: WNL, Normal Bowel Sounds, Soft, Other (drain). No: Tenderness, Epigastrium Extremities: No: Cold, Cool, Cyanosis Labs: CBC, BMP 10/26/16 06:45 10/26/16 06:45 INR, PTT INR 1.27 (0.82-1.09) H 10/19/16 15:44 Assessment/Plan Microbiology 10/22/16 16:00 Abscess Gram Stain - Final 10/22/16 16:00 Abscess Anaerobic Culture - Final NO GROWTH OF AEROBIC ORGANISMS AFTER 48 HOURS INCUBATION NO ANAEROBES WERE ISOLATED 10/22/16 16:00 Abscess Gram Stain - Final 10/22/16 16:00 Abscess Anaerobic Culture - Final 10/22/16 16:00 Abscess AFB Smear Concentration - Final 10/22/16 16:00 Abscess Mycobacterial Culture - Preliminary Laboratory Tests 10/20/16 10/26/16 10/26/16 11:15 06:45 06:45 WBC 8.0 Hgb 10.4 L Hct 31.5 L Plt Count 499 H BUN 13 D Creatinine 1.2 AST 19 D ALT 12 Alkaline Phosphatase 140 H E. histolytica Antibody Positive H Assessment Suspect Amebic lever abscess vs pyogenic Quant gold incidental Plan Treat through the weekend CT image on saturday Discuss with Dr Hernandez going home with catheter vs not Repeat ESR CRP Antibiotics Mani SINGH
--- NOTE | 2016-10-26 16:54 | PN ---
Physical Exam: SUBJECTIVE: Patient seen and examined No acute events overnight. Patient's pain well controlled. Drained 60 mL yesterday. OBJECTIVE: Vital Signs Period Temp Pulse Resp BP Sys/Taylor Pulse Ox Last 24 Hr 97.8 F-99.4 F 82-86 18-20 86-115/56-77 GENERAL: Awake, alert, and fully oriented, in no acute distress. HEAD: Normal with no signs of trauma. EYES: Extraocular movements intact, sclera anicteric, conjunctiva clear. No lid lag. EARS, NOSE, THROAT: Oropharynx clear without exudates. Moist mucous membranes. NECK: Normal range of motion, supple without lymphadenopathy LUNGS: Breath sounds equal, clear to auscultation bilaterally. No wheezes, and no crackles. No accessory muscle use. HEART: Regular rate and rhythm, normal S1 and S2 without murmur, rub or gallop. ABDOMEN: Soft, nontender, not distended, normoactive bowel sounds, no guarding, no rebound, no masses. Drain in place with serosanginous drainage. UPPER EXTREMITIES: 2+ radial pulses, warm, well-perfused. No cyanosis. No clubbing. No peripheral edema. LOWER EXTREMITIES: Warm, well-perfused. No calf tenderness. No peripheral edema. NEUROLOGICAL: Cranial nerves II-XII intact. Normal speech. Normal gait. PSYCHIATRIC: Cooperative. Good eye contact. Appropriate mood and affect. Laboratory Results - last 24 hr 10/20/16 10/26/16 10/26/16 11:15 06:45 06:45 WBC 8.0 RBC 3.64 L Hgb 10.4 L Hct 31.5 L MCV 86.5 MCH 28.7 MCHC 33.1 RDW 14.7 Plt Count 499 H MPV 7.0 L Neutrophils % 53.4 D Lymphocytes % 28.2 D Monocytes % 12.6 H Eosinophils % 3.9 Basophils % 1.9 Sodium 132 L Potassium 3.3 L D Chloride 94 L Carbon Dioxide 33 H Anion Gap 5 L BUN 13 D Creatinine 1.2 Random Glucose 105 D Calcium 8.2 L Total Bilirubin 0.2 D Direct Bilirubin 0.1 AST 19 D ALT 12 Alkaline Phosphatase 140 H Total Protein 7.6 Albumin 1.7 L Echinococcus Antibody 0.43 Active Medications Generic Name Dose Route Start Last Admin Trade Name Freq PRN Reason Stop Dose Admin Acetaminophen 650 mg 10/22/16 18:30 10/25/16 10:11 Tylenol - PO 650 mg Q4H PRN Administration FEVER OR PAIN Benzocaine/Menthol 1 each 10/22/16 18:30 Cepacol Lozenge - MM PRN PRN SORE THROAT Diclofenac Sodium 50 mg 10/26/16 14:00 10/26/16 13:07 Voltaren - PO 50 mg TID [facility] Administration Docusate Sodium 100 mg 10/24/16 10:15 10/26/16 11:18 Colace - PO Not Given DAILY [facility] Guaifenesin 10 ml 10/22/16 18:30 10/25/16 22:34 Robitussin Dm - PO 10 ml Q4H PRN Administration COUGH HCTZ/Losartan Potassium 1 tab 10/23/16 10:00 10/26/16 11:04 Hyzaar - PO Not Given DAILY [facility] Piperacillin Sod/Tazobactam 100 mls @ 200 mls/hr 10/23/16 10:00 10/26/16 10:57 Sod 4.5 gm/ Dextrose IVPB 200 mls/hr Q8H-IV [facility] Administration Metronidazole 100 mls @ 100 mls/hr 10/23/16 18:00 10/26/16 11:43 Flagyl 500mg Premixed Ivpb - IVPB 100 mls/hr Q8H-IV [facility] Administration Famotidine/Sodium Chloride 50 mls @ 100 mls/hr 10/24/16 12:00 10/26/16 10:14 Pepcid 20 Mg Premixed Ivpb - IVPB 100 mls/hr BID [facility] Administration Morphine Sulfate 1 mg 10/24/16 10:09 10/25/16 12:00 Morphine Injection - IVPUSH 10/29/16 18:29 1 mg Q4H PRN Administration PAIN Senna 1 tab 10/24/16 22:00 10/25/16 22:34 Senna - PO Not Given HS [facility] ASSESSMENT/PLAN: 66 yo M with PMH of complete heart block who presented to the ED with continuous fevers for one month found to have liver lesions admitted to telemetry for severe sepsis likely secondary to liver abscesses. #Severe sepsis likely secondary to liver abscess s/p drainage on 10/22 with purulent fluid -Drain in place drained 65 ml yesterday -Tmax of 101 overnight -Continue Zosyn 4.5 gm IVPB Q8H and Flagyl 500 mg IVPB Q8H -Lactic acidosis improved -E. Histolytica Ab + in serum and abscess. -Quant gold +, ID recommends deferring treatment. No requirement for isolation -Lyme negative -HIV negative -Negative PPD -Voltaran 50 mg PO TID for shoulder pain #Hyponatremia, likely due to dehydration -132 -Continue to monitor #Diarrhea -Improved -C. Diff ag/toxin negative -Stool studies pending #Constipation -Began 10/24 -Started on Senna/Colace #Anemia -Likely anemia of chronic disease -Stable -Continue to monitor H/H #GERD -chronic -Continue famotidine 20 mg IVPB #HTN -Continue home medication (Hyzaar 50/12.5 1 tab PO daily) #DVT ppx -SCD's Visit type - Emergency Visit Emergency Visit: No - New Patient This patient is new to me today: No - Critical Care Critical Care patient: No
[2016-10-26] MEDS: SENNOSIDES 8.6MG TABLET (FP) PO SCH (22:37)
[2016-10-27] MEDS: METRONIDAZOLE 500 MG PREMIXED 100 ML IVPB SCH ×3 (01:14→17:35)
[2016-10-27] MEDS: PIPERACILLIN/TAZOB 4.5 GM 4.5 GM in DEXTROSE 5%-WATER 100 ML IVPB SCH ×3 (02:26→18:21)
[2016-10-27] MEDS: DICLOFENAC SODIUM 25 MG TABLET.DR PO SCH ×3 (06:27→21:17)
[2016-10-27 08:30] LABS: ANION GAP 8 (8-16); CALCIUM 8.3 mg/dL (8.5-10.1); CO2 31 mmol/L (21-32); GLUCOSE,RANDOM 103 mg/dL (74-106)
[2016-10-27 08:32] LABS: CREATININE 1.3 mg/dL (0.7-1.3)
--- NOTE | 2016-10-27 08:56 | PN ---
Progress Note, Physician Chief Complaint: ID Zosyn and metronidazole - Current Medication List Current Medications: Active Medications Acetaminophen (Tylenol -) 650 mg PO Q4H PRN PRN Reason: FEVER OR PAIN Last Admin: 10/25/16 10:11 Dose: 650 mg Benzocaine/Menthol (Cepacol Lozenge -) 1 each MM PRN PRN PRN Reason: SORE THROAT Diclofenac Sodium (Voltaren -) 50 mg PO TID [facility] Last Admin: 10/27/16 06:27 Dose: 50 mg Docusate Sodium (Colace -) 100 mg PO DAILY [facility] Last Admin: 10/26/16 11:18 Dose: Not Given Guaifenesin (Robitussin Dm -) 10 ml PO Q4H PRN PRN Reason: COUGH Last Admin: 10/25/16 22:34 Dose: 10 ml HCTZ/Losartan Potassium (Hyzaar -) 1 tab PO DAILY [facility] Last Admin: 10/26/16 11:04 Dose: Not Given Piperacillin Sod/Tazobactam (Sod 4.5 gm/ Dextrose) 100 mls @ 200 mls/hr IVPB Q8H-IV [facility] Last Admin: 10/27/16 02:26 Dose: 200 mls/hr Metronidazole (Flagyl 500mg Premixed Ivpb -) 100 mls @ 100 mls/hr IVPB Q8H-IV [facility] Last Admin: 10/27/16 01:14 Dose: 100 mls/hr Famotidine/Sodium Chloride (Pepcid 20 Mg Premixed Ivpb -) 50 mls @ 100 mls/hr IVPB BID [facility] Last Admin: 10/26/16 22:36 Dose: 100 mls/hr Morphine Sulfate (Morphine Injection -) 1 mg IVPUSH Q4H PRN PRN Reason: PAIN Stop: 10/29/16 18:29 Last Admin: 10/25/16 12:00 Dose: 1 mg Senna (Senna -) 1 tab PO HS [facility] Last Admin: 10/26/16 22:37 Dose: Not Given - Objective Vital Signs: Vital Signs Temperature 98.3 F 10/27/16 06:00 Pulse Rate 61 10/27/16 06:00 Respiratory Rate 20 10/27/16 06:00 Blood Pressure 102/67 10/27/16 06:00 O2 Sat by Pulse Oximetry (%) 97 10/25/16 09:00 Constitutional: Yes: Well Nourished, No Distress Neck: Yes: WNL, Supple Cardiovascular: Yes: S1, S2 Respiratory: Yes: WNL, Regular, CTA Bilaterally Gastrointestinal: Yes: WNL, Normal Bowel Sounds, Soft. No: Tenderness, Tenderness, Epigastrium Labs: CBC, BMP 10/26/16 06:45 INR, PTT INR 1.27 (0.82-1.09) H 10/19/16 15:44 Assessment/Plan Assessment Suspect pyogenic liver abscess Amebic considered Plan Antibiotics continue CT image saturday ( he does not want to go home with catheter as Dr Hernandez suggested) Repeat ESR and CRP saturday ? Home on cristiano Singleton MD
[2016-10-27] MEDS ORDERED: DEXTROSE 5%-WATER 100 ML IVPB ONE ×3 (09:32→23:53)
[2016-10-27] MEDS ORDERED: PIPERACILLIN/TAZOBACTAM 4.5 GM VIAL IVPB ONE ×3 (09:32→23:53)
[2016-10-27] MEDS: LOSARTAN 50MG/HCTZ 12.5MG 1 TAB (FP) PO SCH (09:36)
[2016-10-27] MEDS: DOCUSATE SODIUM 100 MG CAPSULE (FP) PO SCH ×2 (09:36→09:42)
[2016-10-27] MEDS: FAMOTIDINE 20 MG/50 ML IVPB 50 ML IVPB SCH ×2 (09:36→21:16)
--- NOTE | 2016-10-27 10:17 | PN ---
Progress Note (short form) - Note Progress Note: No acute events overnight. No CP or SOB. Drain intact, only 10ml documented output. Intake & Output 10/24/16 10/25/16 10/26/16 10/27/16 23:59 23:59 23:59 23:59 Intake Total 1750 600 450 Output Total 175 60 35 10 Balance 1575 540 415 -10 Weight 175 lb 8 oz 174 lb 6 oz 175 lb 14.4 oz 176 lb 6.4 oz Last Vital Signs Temp Pulse Resp BP Pulse Ox 98.3 F 61 20 102/67 97 10/27/16 06:00 10/27/16 06:00 10/27/16 06:00 10/27/16 06:00 10/25/16 09:00 Active Medications Acetaminophen (Tylenol -) 650 mg PO Q4H PRN PRN Reason: FEVER OR PAIN Last Admin: 10/25/16 10:11 Dose: 650 mg Benzocaine/Menthol (Cepacol Lozenge -) 1 each MM PRN PRN PRN Reason: SORE THROAT Diclofenac Sodium (Voltaren -) 50 mg PO TID [facility] Last Admin: 10/27/16 06:27 Dose: 50 mg Docusate Sodium (Colace -) 100 mg PO DAILY [facility] Last Admin: 10/27/16 09:42 Dose: Not Given Guaifenesin (Robitussin Dm -) 10 ml PO Q4H PRN PRN Reason: COUGH Last Admin: 10/25/16 22:34 Dose: 10 ml HCTZ/Losartan Potassium (Hyzaar -) 1 tab PO DAILY [facility] Last Admin: 10/27/16 09:36 Dose: 1 tab Piperacillin Sod/Tazobactam (Sod 4.5 gm/ Dextrose) 100 mls @ 200 mls/hr IVPB Q8H-IV [facility] Last Admin: 10/27/16 02:26 Dose: 200 mls/hr Metronidazole (Flagyl 500mg Premixed Ivpb -) 100 mls @ 100 mls/hr IVPB Q8H-IV [facility] Last Admin: 10/27/16 01:14 Dose: 100 mls/hr Famotidine/Sodium Chloride (Pepcid 20 Mg Premixed Ivpb -) 50 mls @ 100 mls/hr IVPB BID [facility] Last Admin: 10/27/16 09:36 Dose: 100 mls/hr Morphine Sulfate (Morphine Injection -) 1 mg IVPUSH Q4H PRN PRN Reason: PAIN Stop: 10/29/16 18:29 Last Admin: 10/25/16 12:00 Dose: 1 mg Senna (Senna -) 1 tab PO HS [facility] Last Admin: 10/26/16 22:37 Dose: Not Given Constitutional: Yes: No Distress. No: Pallor Eyes: Yes: Conjunctiva Clear, EOM Intact HENT: Yes: Atraumatic, Normocephalic Neck: Yes: Supple, Trachea Midline Cardiovascular: Yes: Regular Rate and Rhythm Respiratory: Yes: CTA Bilaterally. No: Accessory Muscle Use ...Inspection: Yes: WNL ...Clubbing: No Gastrointestinal: Yes: Normal Bowel Sounds, Soft, (+) intact drain Renal/: Yes: WNL Musculoskeletal: Yes: WNL Extremities: Yes: WNL Edema: No Peripheral Pulses WNL: Yes Integumentary: Yes: WNL Neurological: Yes: WNL, Alert, Oriented ...Motor Strength: WNL Psychiatric: Yes: WNL, Alert, Oriented Labs: Laboratory Results - last 24 hr 10/27/16 06:00 Sodium 135 L Potassium 3.7 Chloride 96 L Carbon Dioxide 31 Anion Gap 8 BUN 16 D Creatinine 1.3 Random Glucose 103 Calcium 8.3 L Problem List - Problems (1) Elevated total protein Code(s): R77.8 - OTHER SPECIFIED ABNORMALITIES OF PLASMA PROTEINS (2) Fever Code(s): R50.9 - FEVER, UNSPECIFIED (3) Liver abscess Code(s): K75.0 - ABSCESS OF LIVER (4) Severe sepsis Code(s): A41.9 - SEPSIS, UNSPECIFIED ORGANISM R65.20 - SEVERE SEPSIS WITHOUT SEPTIC SHOCK Assessment/Plan ABX per ID O2 as needed VTE prophylaxis Monitor drain output Dr Galan Problem List - Problems (1) Elevated total protein Code(s): R77.8 - OTHER SPECIFIED ABNORMALITIES OF PLASMA PROTEINS (2) Fever Code(s): R50.9 - FEVER, UNSPECIFIED (3) Liver abscess Code(s): K75.0 - ABSCESS OF LIVER (4) Severe sepsis Code(s): A41.9 - SEPSIS, UNSPECIFIED ORGANISM R65.20 - SEVERE SEPSIS WITHOUT SEPTIC SHOCK
[2016-10-27] MEDS: guaiFENesin/D-METHORPHAN HB 10 ML UNIT-DOSE CUPS PO PRN ×2 (10:32→21:16)
--- NOTE | 2016-10-27 12:37 | PN ---
Progress Note (short form) - Note Progress Note: c/o frequent BM, with everytime he urinates. not loose but soft BM multiple times a day. started once CARI drain was placed. adamant about not going home with CARI drain as it will cause psychological effects if he has to be home with it. denies CP, SOB,fever, chills, abdominal pain, N/V/C/D Current Medications Generic Name Dose Route Start Last Admin Trade Name Freq PRN Reason Stop Dose Admin Acetaminophen 650 mg 10/22/16 18:30 10/25/16 10:11 Tylenol - PO 650 mg Q4H PRN Administration FEVER OR PAIN Benzocaine/Menthol 1 each 10/22/16 18:30 Cepacol Lozenge - MM PRN PRN SORE THROAT Diclofenac Sodium 50 mg 10/26/16 14:00 10/27/16 06:27 Voltaren - PO 50 mg TID [facility] Administration Docusate Sodium 100 mg 10/24/16 10:15 10/27/16 09:42 Colace - PO Not Given DAILY [facility] Guaifenesin 10 ml 10/22/16 18:30 10/27/16 10:32 Robitussin Dm - PO 10 ml Q4H PRN Administration COUGH HCTZ/Losartan Potassium 1 tab 10/23/16 10:00 10/27/16 09:36 Hyzaar - PO 1 tab DAILY [facility] Administration Piperacillin Sod/Tazobactam 100 mls @ 200 mls/hr 10/23/16 10:00 10/27/16 11:28 Sod 4.5 gm/ Dextrose IVPB 200 mls/hr Q8H-IV [facility] Administration Metronidazole 100 mls @ 100 mls/hr 10/23/16 18:00 10/27/16 10:27 Flagyl 500mg Premixed Ivpb - IVPB 100 mls/hr Q8H-IV [facility] Administration Famotidine/Sodium Chloride 50 mls @ 100 mls/hr 10/24/16 12:00 10/27/16 09:36 Pepcid 20 Mg Premixed Ivpb - IVPB 100 mls/hr BID [facility] Administration Morphine Sulfate 1 mg 10/24/16 10:09 10/25/16 12:00 Morphine Injection - IVPUSH 10/29/16 18:29 1 mg Q4H PRN Administration PAIN Senna 1 tab 10/24/16 22:00 10/26/16 22:37 Senna - PO Not Given HS [facility] Last Vital Signs Temp Pulse Resp BP Pulse Ox 98.3 F 61 20 102/67 97 10/27/16 06:00 10/27/16 06:00 10/27/16 06:00 10/27/16 06:00 10/25/16 09:00 General NAD CV S1 S2 RRR no murmur/rub/gallop Lungs CTA B/L no wheezing/rales/rhonchi Abdomen soft NT/ND normoactive BS, + R CARI drain CMP Sodium 135 mmol/L (136-145) L 10/27/16 06:00 Potassium 3.7 mmol/L (3.5-5.1) 10/27/16 06:00 Chloride 96 mmol/L (98-107) L 10/27/16 06:00 Carbon Dioxide 31 mmol/L (21-32) 10/27/16 06:00 Anion Gap 8 (8-16) 10/27/16 06:00 BUN 16 mg/dL (7-18) D 10/27/16 06:00 Creatinine 1.3 mg/dL (0.7-1.3) 10/27/16 06:00 Creat Clearance w eGFR > 60 (>60) 10/22/16 05:15 Calcium 8.3 mg/dL (8.5-10.1) L 10/27/16 06:00 Total Bilirubin 0.2 mg/dL (0.2-1.0) D 10/26/16 06:45 AST 19 U/L (15-37) D 10/26/16 06:45 ALT 12 U/L (12-78) 10/26/16 06:45 Alkaline Phosphatase 140 U/L (45-117) H 10/26/16 06:45 Total Protein 7.6 g/dl (6.4-8.2) 10/26/16 06:45 Albumin 1.7 g/dl (3.4-5.0) L 10/26/16 06:45 A/P: 66-year-old man with a history of rheumatic fever, complete heart block who presented to the ER with fevers x 1 month. 1. Severe sepsis secondary to liver abscess, pyogenic vs amebic- afebrile >48H. s/p Drainage and CARI drain in place 10/21 with minimal output. +Entamoeba histolytica Ab. will repeat CT scan on Saturday. will d/w Dr Raymundo about removal of drain as pt does not want to leave with drain. explained to pt will make determination on Saturday if needed however it is ultimately his decision if he wants it removed. that there are risks assoc if removed prematurely causing worsening of abscess and leading to sepsis and organ damage. verbalized understanding of risks. cont Flagyl/Zosyn day 8. fci abx per ID. 2. Hyponatremia- dehydration. now resolved 3. Multiple BM-cdiff negative. will hold laxatives. start bacid 4. Anemia, likely secondary to chronic illness- Hemoglobin is stable 5. HTN- Continue Hyzaar 6. History of rheumatic fever 7. History of complete heart block, pacemaker 8. d/c planning saturday pending results of CT scan. Visit type - Emergency Visit Emergency Visit: Yes ED Registration Date: 10/20/16 Care time: The patient presented to the Emergency Department on the above date and was hospitalized for further evaluation of their emergent condition. - New Patient This patient is new to me today: Yes Date on this admission: 10/27/16 - Critical Care Critical Care patient: No - Discharge Referral Referred to [facility] No
[2016-10-27] MEDS: LACTOBACILLUS ACIDOPHILUS 1 EACH TAB (FP) PO SCH (13:12)
[2016-10-27] MEDS ORDERED: PT OWN MED DRAWER 7, Y5N ONE (13:12)
[2016-10-27] MEDS: ACETAMINOPHEN 325 MG TABLET (FP) PO PRN (23:56)
[2016-10-28] MEDS: METRONIDAZOLE 500 MG PREMIXED 100 ML IVPB SCH ×3 (01:30→17:54)
[2016-10-28] MEDS: PIPERACILLIN/TAZOB 4.5 GM 4.5 GM in DEXTROSE 5%-WATER 100 ML IVPB SCH ×3 (02:19→17:16)
[2016-10-28] MEDS: DICLOFENAC SODIUM 25 MG TABLET.DR PO SCH ×3 (05:36→21:32)
--- NOTE | 2016-10-28 08:32 | PN ---
Progress Note (short form) - Note Progress Note: asymptomatic. no Bm today. denies CP, SOB,fever, chills, abdominal pain, N/V/C/D Current Medications Generic Name Dose Route Start Last Admin Trade Name Freq PRN Reason Stop Dose Admin Acetaminophen 650 mg 10/22/16 18:30 10/25/16 10:11 Tylenol - PO 650 mg Q4H PRN Administration FEVER OR PAIN Benzocaine/Menthol 1 each 10/22/16 18:30 Cepacol Lozenge - MM PRN PRN SORE THROAT Diclofenac Sodium 50 mg 10/26/16 14:00 10/28/16 05:36 Voltaren - PO 50 mg TID [facility] Administration Guaifenesin 10 ml 10/22/16 18:30 10/27/16 21:16 Robitussin Dm - PO 10 ml Q4H PRN Administration COUGH HCTZ/Losartan Potassium 1 tab 10/23/16 10:00 10/27/16 09:36 Hyzaar - PO 1 tab DAILY [facility] Administration Piperacillin Sod/Tazobactam 100 mls @ 200 mls/hr 10/23/16 10:00 10/28/16 02:19 Sod 4.5 gm/ Dextrose IVPB 200 mls/hr Q8H-IV [facility] Administration Metronidazole 100 mls @ 100 mls/hr 10/23/16 18:00 10/28/16 01:30 Flagyl 500mg Premixed Ivpb - IVPB 100 mls/hr Q8H-IV [facility] Administration Famotidine/Sodium Chloride 50 mls @ 100 mls/hr 10/24/16 12:00 10/27/16 21:16 Pepcid 20 Mg Premixed Ivpb - IVPB 100 mls/hr BID [facility] Administration Lactobacillus Acidophilus 1 tab 10/27/16 12:45 10/27/16 13:12 Bacid - PO 1 tab DAILY [facility] Administration Morphine Sulfate 1 mg 10/24/16 10:09 10/25/16 12:00 Morphine Injection - IVPUSH 10/29/16 18:29 1 mg Q4H PRN Administration PAIN Last Vital Signs Temp Pulse Resp BP Pulse Ox 97.5 F L 56 L 20 107/72 97 10/28/16 06:00 10/28/16 06:00 10/28/16 06:00 10/28/16 06:00 10/25/16 09:00 Intake & Output 10/25/16 10/26/16 10/27/16 10/28/16 23:59 23:59 23:59 23:59 Intake Total 600 450 100 200 Output Total 60 35 40 5 Balance 540 415 60 195 Weight 174 lb 6 oz 175 lb 14.4 oz 176 lb 6.4 oz General NAD CV S1 S2 RRR no murmur/rub/gallop Lungs CTA B/L no wheezing/rales/rhonchi Abdomen soft NT/ND normoactive BS, + R CARI drain A/P: 66-year-old man with a history of rheumatic fever, complete heart block who presented to the ER with fevers x 1 month. 1. Severe sepsis secondary to liver abscess, pyogenic vs amebic- afebrile >48H. s/p Drainage and CARI drain in place 10/21 with minimal output. +Entamoeba histolytica Ab. will repeat CT scan on Saturday.drain removal per Dr Campos. cont Flagyl/Zosyn day 9. half-way abx per ID. 2. Hyponatremia- dehydration. now resolved 3. Multiple BM-cdiff negative. improved. informed pt he should have 1 BM daily. on bacid 4. Anemia, likely secondary to chronic illness- Hemoglobin is stable 5. HTN- Continue Hyzaar 6. History of rheumatic fever 7. History of complete heart block, pacemaker 8. PT eval. d/c planning saturday pending results of CT scan. pt does not want to leave with CARI drain. discussed again the risks of removing prematurely. Visit type - Emergency Visit Emergency Visit: Yes ED Registration Date: 10/20/16 Care time: The patient presented to the Emergency Department on the above date and was hospitalized for further evaluation of their emergent condition. - New Patient This patient is new to me today: No - Critical Care Critical Care patient: No - Discharge Referral Referred to [facility] Med [facility].C.: No
--- NOTE | 2016-10-28 10:24 | PN ---
Progress Note (short form) - Note Progress Note: No acute events overnight. No CP or SOB. Minimal drain output (5 ml) Intake & Output 10/25/16 10/26/16 10/27/16 10/28/16 23:59 23:59 23:59 23:59 Intake Total 600 450 100 200 Output Total 60 35 40 5 Balance 540 415 60 195 Weight 174 lb 6 oz 175 lb 14.4 oz 176 lb 6.4 oz Last Vital Signs Temp Pulse Resp BP Pulse Ox 97.5 F L 56 L 20 107/72 97 10/28/16 06:00 10/28/16 06:00 10/28/16 06:00 10/28/16 06:00 10/25/16 09:00 Active Medications Acetaminophen (Tylenol -) 650 mg PO Q4H PRN PRN Reason: FEVER OR PAIN Last Admin: 10/25/16 10:11 Dose: 650 mg Benzocaine/Menthol (Cepacol Lozenge -) 1 each MM PRN PRN PRN Reason: SORE THROAT Diclofenac Sodium (Voltaren -) 50 mg PO TID [facility] Last Admin: 10/28/16 05:36 Dose: 50 mg Guaifenesin (Robitussin Dm -) 10 ml PO Q4H PRN PRN Reason: COUGH Last Admin: 10/27/16 21:16 Dose: 10 ml HCTZ/Losartan Potassium (Hyzaar -) 1 tab PO DAILY [facility] Last Admin: 10/27/16 09:36 Dose: 1 tab Piperacillin Sod/Tazobactam (Sod 4.5 gm/ Dextrose) 100 mls @ 200 mls/hr IVPB Q8H-IV [facility] Last Admin: 10/28/16 02:19 Dose: 200 mls/hr Metronidazole (Flagyl 500mg Premixed Ivpb -) 100 mls @ 100 mls/hr IVPB Q8H-IV [facility] Last Admin: 10/28/16 01:30 Dose: 100 mls/hr Famotidine/Sodium Chloride (Pepcid 20 Mg Premixed Ivpb -) 50 mls @ 100 mls/hr IVPB BID [facility] Last Admin: 10/27/16 21:16 Dose: 100 mls/hr Lactobacillus Acidophilus (Bacid -) 1 tab PO DAILY [facility] Last Admin: 10/27/16 13:12 Dose: 1 tab Morphine Sulfate (Morphine Injection -) 1 mg IVPUSH Q4H PRN PRN Reason: PAIN Stop: 10/29/16 18:29 Last Admin: 10/25/16 12:00 Dose: 1 mg Constitutional: Yes: No Distress. No: Pallor Eyes: Yes: Conjunctiva Clear, EOM Intact HENT: Yes: Atraumatic, Normocephalic Neck: Yes: Supple, Trachea Midline Cardiovascular: Yes: Regular Rate and Rhythm Respiratory: Yes: CTA Bilaterally. No: Accessory Muscle Use ...Inspection: Yes: WNL ...Clubbing: No Gastrointestinal: Yes: Normal Bowel Sounds, Soft, (+) intact drain Renal/: Yes: WNL Musculoskeletal: Yes: WNL Extremities: Yes: WNL Edema: No Peripheral Pulses WNL: Yes Integumentary: Yes: WNL Neurological: Yes: WNL, Alert, Oriented ...Motor Strength: WNL Psychiatric: Yes: WNL, Alert, Oriented Labs: Problem List - Problems (1) Elevated total protein Code(s): R77.8 - OTHER SPECIFIED ABNORMALITIES OF PLASMA PROTEINS (2) Fever Code(s): R50.9 - FEVER, UNSPECIFIED (3) Liver abscess Code(s): K75.0 - ABSCESS OF LIVER (4) Severe sepsis Code(s): A41.9 - SEPSIS, UNSPECIFIED ORGANISM R65.20 - SEVERE SEPSIS WITHOUT SEPTIC SHOCK Assessment/Plan ABX per ID O2 as needed VTE prophylaxis Monitor drain output Dr Galan Problem List - Problems (1) Elevated total protein Code(s): R77.8 - OTHER SPECIFIED ABNORMALITIES OF PLASMA PROTEINS (2) Fever Code(s): R50.9 - FEVER, UNSPECIFIED (3) Liver abscess Code(s): K75.0 - ABSCESS OF LIVER (4) Severe sepsis Code(s): A41.9 - SEPSIS, UNSPECIFIED ORGANISM R65.20 - SEVERE SEPSIS WITHOUT SEPTIC SHOCK
[2016-10-28] MEDS ORDERED: DEXTROSE 5%-WATER 100 ML IVPB ONE ×3 (10:33→17:02)
[2016-10-28] MEDS ORDERED: PIPERACILLIN/TAZOBACTAM 4.5 GM VIAL IVPB ONE ×3 (10:33→17:02)
[2016-10-28] MEDS: LACTOBACILLUS ACIDOPHILUS 1 EACH TAB (FP) PO SCH (10:36)
[2016-10-28] MEDS: LOSARTAN 50MG/HCTZ 12.5MG 1 TAB (FP) PO SCH ×2 (10:36→10:55)
[2016-10-28] MEDS: FAMOTIDINE 20 MG/50 ML IVPB 50 ML IVPB SCH ×2 (10:37→21:32)
[2016-10-28] MEDS: guaiFENesin/D-METHORPHAN HB 10 ML UNIT-DOSE CUPS PO PRN (10:55)
[2016-10-28] MEDS ORDERED: PT OWN MED DRAWER 7, Y5N ONE ×2 (13:03→21:25)
[2016-10-29] MEDS ORDERED: DEXTROSE 5%-WATER 100 ML IVPB ONE ×2 (00:16→09:02)
[2016-10-29] MEDS ORDERED: PIPERACILLIN/TAZOBACTAM 4.5 GM VIAL IVPB ONE ×2 (00:16→09:01)
[2016-10-29] MEDS: PIPERACILLIN/TAZOB 4.5 GM 4.5 GM in DEXTROSE 5%-WATER 100 ML IVPB SCH ×3 (02:00→19:49)
[2016-10-29] MEDS: METRONIDAZOLE 500 MG PREMIXED 100 ML IVPB SCH ×3 (02:34→19:49)
[2016-10-29] MEDS: DICLOFENAC SODIUM 25 MG TABLET.DR PO SCH ×2 (05:54→13:38)
[2016-10-29 08:39] LABS: ANION GAP 5 (8-16); C-REACTIVE PROTEIN 0.9 MG/DL (0.00-0.3); CALCIUM 8.7 mg/dL (8.5-10.1); CO2 31 mmol/L (21-32); CREATININE 1.3 mg/dL (0.7-1.3); GLUCOSE,RANDOM 96 mg/dL (74-106)
[2016-10-29] MEDS: LACTOBACILLUS ACIDOPHILUS 1 EACH TAB (FP) PO SCH (10:00)
--- NOTE | 2016-10-29 10:05 | PN ---
Physical Exam: SUBJECTIVE: Patient to be seen by me this AM - No fevers over the weekend. Denies fever, chills, abdominal pain, N/V, rash, dysuria, back pain, LE swelling, diarrhea - Does not wish to go home w/ CARI drain in place. Plan for f/u CT today to evaluate abscess and defer to IR if discharge prudent. - No major complaints. Decreased PO intake, but able to take Ensure. - Currently received Voltaran for shoulder pain, much improved. PM: - Pt consulted regarding d/c home w/ CARI drain, given IR approval. Refusing d/c w / drain. - CRP downtrending from 7.4 (10/22) -> 0.9 - CT scan with significant reduction in abscess size. - CARI drain with <10 cc of fluid overnight Other updates: - 10/29 CRP elevated 0.9 - No growth from aspirate, Blood cx's - Awaiting abscess serologies from [facility] - Echinococcal serologies negative. Lyme panel negative OBJECTIVE: Vital Signs Period Temp Pulse Resp BP Sys/Taylor Pulse Ox Last 24 Hr 98.0 F-99.2 F 63-78 16-20 99-134/60-90 99 GENERAL: The patient is awake, alert, and fully oriented, in no acute distress. Pleasant man, well-nourished HEAD: Normal with no signs of trauma. Hyperpigmented lesions on R forehead, which pt endorses as mild rash of few days duration. Pruritus across forehead. EYES: sclera anicteric, conjunctiva clear. No ptosis. NECK: Trachea midline, full range of motion, supple. LUNGS: Good air movement, much improved. Breath sounds equal, clear to auscultation bilaterally, no wheezes, no crackles, no accessory muscle use. HEART: Regular rate and rhythm, S1, S2 without murmur, rub or gallop. ABDOMEN: Soft, nontender, nondistended, normoactive bowel sounds, no guarding, no rebound, no hepatosplenomegaly, no masses. Drainage site not tender or erythematous. CARI drained 10 cc of light brown serosanguinous fluid with sediment. EXTREMITIES: 2+ pulses, warm, well-perfused, no edema. NEUROLOGICAL: Cranial nerves II through XII grossly intact. Normal speech, gait not observed. PSYCH: Normal mood, normal affect. Laboratory Results - last 24 hr CBC, BMP 10/26/16 06:45 10/29/16 06:00 10/21/16 10/29/16 19:00 06:00 Sodium 136 Potassium 5.1 D Chloride 100 Carbon Dioxide 31 Anion Gap 5 L BUN 13 Creatinine 1.3 Random Glucose 96 Calcium 8.7 C-Reactive Protein 0.9 H D Stool O & P Wet [place] O & P Permanent Slide Final report Microbiology 10/22/16 16:00 Abscess Gram Stain - Final 10/22/16 16:00 Abscess Body Fluid Culture - Final NO GROWTH OF AEROBIC ORGANISMS AFTER 48 HOURS INCUBATION 10/22/16 16:00 Abscess Anaerobic Culture - Final NO ANAEROBES WERE ISOLATED 10/20/16 11:15 Blood - Peripheral Venous TB Test (QFT) (LEAH) - Final 10/19/16 15:44 Blood - Peripheral Venous Blood Culture - Final NO GROWTH AFTER 5 DAYS INCUBATION 10/19/16 15:44 Blood - Peripheral Venous Blood Culture - Final NO GROWTH AFTER 5 DAYS INCUBATION 10/22/16 16:00 Abscess AFB Smear Concentration - Final 10/22/16 16:00 Abscess Mycobacterial Culture - Preliminary 10/22/16 16:00 Abscess Gram Stain - Final 10/22/16 16:00 Abscess Anaerobic Culture - Final 10/21/16 14:25 Stool Clostridium difficile Antigen (LEAH) - Final 10/21/16 14:25 Stool Clostridium difficile Toxin Assay - Final 10/20/16 11:15 Blood - Peripheral Venous Blood Parasites Smear (LEAH) - Final No growth. Active Medications Generic Name Dose Route Start Last Admin Trade Name Freq PRN Reason Stop Dose Admin Acetaminophen 650 mg 10/22/16 18:30 10/25/16 10:11 Tylenol - PO 650 mg Q4H PRN Administration FEVER OR PAIN Benzocaine/Menthol 1 each 10/22/16 18:30 Cepacol Lozenge - MM PRN PRN SORE THROAT Diclofenac Sodium 50 mg 10/26/16 14:00 10/29/16 05:54 Voltaren - PO 50 mg TID CHRISTEN Administration Guaifenesin 10 ml 10/22/16 18:30 10/28/16 10:55 Robitussin Dm - PO 10 ml Q4H PRN Administration COUGH HCTZ/Losartan Potassium 1 tab 10/23/16 10:00 10/28/16 10:55 Hyzaar - PO Not Given DAILY CHRISTEN Piperacillin Sod/Tazobactam 100 mls @ 200 mls/hr 10/23/16 10:00 10/29/16 02:00 Sod 4.5 gm/ Dextrose IVPB 200 mls/hr Q8H-IV CHRISTEN Administration Metronidazole 100 mls @ 100 mls/hr 10/23/16 18:00 10/29/16 02:34 Flagyl 500mg Premixed Ivpb - IVPB 100 mls/hr Q8H-IV CHRISTEN Administration Famotidine/Sodium Chloride 50 mls @ 100 mls/hr 10/24/16 12:00 10/28/16 21:32 Pepcid 20 Mg Premixed Ivpb - IVPB 100 mls/hr BID CHRISTEN Administration Lactobacillus Acidophilus 1 tab 10/27/16 12:45 10/28/16 10:36 Bacid - PO 1 tab DAILY CHRISTEN Administration Morphine Sulfate 1 mg 10/24/16 10:09 10/25/16 12:00 Morphine Injection - IVPUSH 10/29/16 18:29 1 mg Q4H PRN Administration PAIN Imaging Reviewed ASSESSMENT/PLAN: Assessment: 66 yo man w/ pmh of complete HB w/ PPM who presented with continuous fevers of one month duration, now with liver abscess of unknown etiology (pyogenic vs. amoebic vs. parasitic vs. neoplasm). Pt much improved over the weekend, w/ no shoulder pain, no fevers and improving PO intake. CARI drain w/ continue minimal drainage of brown fluid w/ sediment. IR approves d/c w/ drain, but pt refuses. Ecchinococcal serologies negative, lyme panel negative. Plan to d/c on PO flagyl on extended course w/ weekly outpt f/u in clinic and f/u imaging of abscess. Pt will require further counseling to prepare for d/c, as he is reluctant to leave w/ drain still in place. Problem List: Liver Abscess Sepsis Chronic fever Plan: #Liver Abscess - CT scan w/ significant volume reduction of abscess and catheter in place. IR approves d/c home w/ drain - Echinococcal serologies negative. Lyme panel negative - No growth on cultures - ESR and CRP improving - Plan to transition to flagyl PO 500mg daily as outpt - Plan for outpt f/u and repeat imaging after abx course completed as outpt - Will contact bubba for results tomorrow AM - Monitor drainage site for signs of site infxn - Qshift vitals Homar Hanks MD, PGY1 Plan discussed with attending, Dr. David Problem List - Problems (1) Fever Code(s): R50.9 - FEVER, UNSPECIFIED (2) Liver abscess Code(s): K75.0 - ABSCESS OF LIVER (3) Severe sepsis Code(s): A41.9 - SEPSIS, UNSPECIFIED ORGANISM R65.20 - SEVERE SEPSIS WITHOUT SEPTIC SHOCK Visit type - Emergency Visit Emergency Visit: No - New Patient This patient is new to me today: No - Critical Care Critical Care patient: No
[2016-10-29] MEDS: FAMOTIDINE 20 MG/50 ML IVPB 50 ML IVPB SCH (11:14)
[2016-10-29] MEDS: LOSARTAN 50MG/HCTZ 12.5MG 1 TAB (FP) PO SCH (11:14)
--- NOTE | 2016-10-29 11:31 | PN ---
Teaching Attending Note Name of Resident: Andrea Laguerre ATTENDING PHYSICIAN STATEMENT I saw and evaluated the patient. I reviewed the resident's note and discussed the case with the resident. I agree with the resident's findings and plan as documented. SUBJECTIVE:asymptomatic. denies Cp, SOB,fever, chills, N/V/C/D OBJECTIVE: Last Vital Signs Temp Pulse Resp BP Pulse Ox 99.2 F 78 20 134/90 99 10/29/16 06:00 10/29/16 06:00 10/29/16 06:00 10/29/16 06:00 10/28/16 21:00 General NAD CV S1 S2 RRR no murmur/rub/gallop Lungs CTA B/L no wheezing/rales/rhonchi Abdomen soft NT/ND normoactive BS, + R CARI drain A/P: 66-year-old man with a history of rheumatic fever, complete heart block who presented to the ER with fevers x 1 month. 1. Severe sepsis secondary to liver abscess, pyogenic vs amebic- afebrile >48H. s/p Drainage and CARI drain in place 10/21 with minimal output. +Entamoeba histolytica Ab. CT this AM to f/u resolution. will need to d/w ID about abx duration once images reviewed. will likely require CARI drain but pt is very anxious about leaving with drain. cont Flagyl/Zosyn day 10. 2. Hyponatremia- dehydration. now resolved 3. Multiple BM-cdiff negative. improved. informed pt he should have 1 BM daily. on bacid 4. Anemia, likely secondary to chronic illness- Hemoglobin is stable 5. HTN- Continue Hyzaar 6. History of rheumatic fever 7. History of complete heart block, pacemaker 8. PT eval. d/c planning pending results of CT scan. pt does not want to leave with CARI drain. discussed again the risks of removing prematurely.
[2016-10-29 15:43] VITALS: BP 112/70; PULSE 86; TEMP 98.2
--- NOTE | 2016-10-29 16:19 | PN ---
Progress Note (short form) - Note Progress Note: overall improved no complaints Vital Signs Period Temp Pulse Resp BP Sys/Taylor Pulse Ox Last 24 Hr 98.2 F-99.2 F 70-86 20-20 112-134/68-90 99-99 cor-rrr lungs clear abd soft,nt minimal drainage from RUQ drain ext no edema CBC, BMP 10/26/16 06:45 10/29/16 06:00 Microbiology 10/22/16 16:00 Abscess Gram Stain - Final 10/22/16 16:00 Abscess Body Fluid Culture - Final NO GROWTH OF AEROBIC ORGANISMS AFTER 48 HOURS INCUBATION 10/22/16 16:00 Abscess Anaerobic Culture - Final NO ANAEROBES WERE ISOLATED 10/20/16 11:15 Blood - Peripheral Venous TB Test (QFT) (LEAH) - Final 10/19/16 15:44 Blood - Peripheral Venous Blood Culture - Final NO GROWTH AFTER 5 DAYS INCUBATION 10/19/16 15:44 Blood - Peripheral Venous Blood Culture - Final NO GROWTH AFTER 5 DAYS INCUBATION 10/22/16 16:00 Abscess AFB Smear Concentration - Final 10/22/16 16:00 Abscess Mycobacterial Culture - Preliminary 10/22/16 16:00 Abscess Gram Stain - Final 10/22/16 16:00 Abscess Anaerobic Culture - Final 10/21/16 14:25 Stool Clostridium difficile Antigen (LEAH) - Final 10/21/16 14:25 Stool Clostridium difficile Toxin Assay - Final 10/20/16 11:15 Blood - Peripheral Venous Blood Parasites Smear (LEAH) - Final Laboratory Tests 10/29/16 10/29/16 06:00 06:00 ESR 97 H C-Reactive Protein 0.9 H D Active Medications Acetaminophen (Tylenol -) 650 mg PO Q4H PRN PRN Reason: FEVER OR PAIN Last Admin: 10/25/16 10:11 Dose: 650 mg Benzocaine/Menthol (Cepacol Lozenge -) 1 each MM PRN PRN PRN Reason: SORE THROAT Diclofenac Sodium (Voltaren -) 50 mg PO TID [facility] Last Admin: 10/29/16 13:38 Dose: 50 mg Guaifenesin (Robitussin Dm -) 10 ml PO Q4H PRN PRN Reason: COUGH Last Admin: 10/28/16 10:55 Dose: 10 ml HCTZ/Losartan Potassium (Hyzaar -) 1 tab PO DAILY [facility] Last Admin: 10/29/16 11:14 Dose: 1 tab Piperacillin Sod/Tazobactam (Sod 4.5 gm/ Dextrose) 100 mls @ 200 mls/hr IVPB Q8H-IV CHRISTEN Last Admin: 10/29/16 11:15 Dose: 200 mls/hr Metronidazole (Flagyl 500mg Premixed Ivpb -) 100 mls @ 100 mls/hr IVPB Q8H-IV CHRISTEN Last Admin: 10/29/16 11:14 Dose: 100 mls/hr Famotidine/Sodium Chloride (Pepcid 20 Mg Premixed Ivpb -) 50 mls @ 100 mls/hr IVPB BID CHRISTEN Last Admin: 10/29/16 11:14 Dose: 100 mls/hr Lactobacillus Acidophilus (Bacid -) 1 tab PO DAILY [facility] Last Admin: 10/29/16 10:00 Dose: 1 tab a/p liver abscess- probable amebic - positive serology esr and crp improving radiographic improvement noted on repeat ct scan radiology wants to keep drain in he is reluctant to go home with drain plan to continue po flagyl as outpt he will need a luminal agent as well after he completes the metronidazole he can f/u in the office with us after discharge PPM- in April- he is not sure where he had it placed- [place] the city Problem List - Problems (1) Liver abscess Code(s): K75.0 - ABSCESS OF LIVER (2) Elevated total protein Code(s): R77.8 - OTHER SPECIFIED ABNORMALITIES OF PLASMA PROTEINS
--- NOTE | 2016-10-29 19:03 | DS ---
Physical Exam: LABS Microbiology 10/22/16 16:00 Abscess AFB Smear Concentration - Final 10/22/16 16:00 Abscess Mycobacterial Culture - Preliminary Laboratory Tests 10/19/16 10/20/16 10/22/16 15:44 11:15 05:15 WBC 13.0 H ESR Sodium Potassium Chloride Carbon Dioxide Anion Gap BUN Creatinine Random Glucose Calcium Alkaline Phosphatase 202 H C-Reactive Protein Albumin E. histolytica Antibody Positive H 10/23/16 10/23/16 10/24/16 06:55 06:55 06:30 WBC ESR 121 H Sodium Potassium Chloride Carbon Dioxide Anion Gap BUN Creatinine Random Glucose Calcium Alkaline Phosphatase 164 H C-Reactive Protein Albumin 1.8 L 1.8 L E. histolytica Antibody 10/25/16 10/26/16 10/29/16 06:30 06:45 06:00 WBC ESR Sodium 136 Potassium 5.1 D Chloride 100 Carbon Dioxide 31 Anion Gap 5 L BUN 13 Creatinine 1.3 Random Glucose 96 Calcium 8.7 Alkaline Phosphatase 135 H 140 H C-Reactive Protein 0.9 H D Albumin 1.7 L 1.7 L E. histolytica Antibody 10/29/16 06:00 WBC ESR 97 H Sodium Potassium Chloride Carbon Dioxide Anion Gap BUN Creatinine Random Glucose Calcium Alkaline Phosphatase C-Reactive Protein Albumin E. histolytica Antibody Abnormal Lab Results 10/29/16 10/29/16 06:00 06:00 ESR 97 H Anion Gap 5 L C-Reactive Protein 0.9 H D Last Vital Signs Temp Pulse Resp BP Pulse Ox 98.2 F 86 20 112/70 99 10/29/16 15:00 10/29/16 15:00 10/29/16 15:00 10/29/16 15:00 10/29/16 09:00 Quantiferon Gold + 10/19- Abdominal CT- [id number] cm abscess in right hepatic lobe. 10/29- Abdominal CT- 6.4x5x4.8 cm abscess in right hepatic lobe with catheter in it. HOSPITAL COURSE: Date of Admission:10/20/16 Date of Discharge: 10/29/16 Pre-hospital course- 66 yr old M presented to the ED c/o fevers and malaise for the past month. Patient arrived from [facility] after being treated for fevers and liver abscess from September 19-. He was last in usual state of health approx September 14 when he felt "ill". He began to have fevers on September [address] [facility] on the . He began to have fevers, cough and right upper chest pain. He was admitted to a hospital with fevers of 41-42deg Celsius on September 20. He was found to have lesions in his liver on CT scan that were thought to be pyogenic liver abscesses. He was treated with IV cefatriaxone [address] [facility]. ED Course- In the ED, patient had abdominal CT which showed a [id number] cm abscess in right hepatic lobe and a Chest CT, which showed no cavitary lesions. He was found to have leukocytosis to 13 and a lactic acid of 4.2. VS showed temp of 100.7 F and HR of 132. Patient was admitted for sepsis secondary to liver abscess. Hospital Course- In the hospital, patient was treated with IV Zosyn 4.5g and IV Flagyl 500 mg TID for a total of 10 days. Patient spiked intermittent fevers throughout the hospital course. Patient was found to be Entomeba hystolitica positive in the serum. On 10/21, IR performed a drainage of the abscess and A CARI drain was placed. Purulent fluid was drained and abscess fluid was found to be positive for Entomeba hystolitica as well. Patient had a repeat CT on 10/29, which showed a 6.4x5x4.8 cm abscess in right hepatic lobe with catheter in it. Post-Hospital Plan- Patient was discharged with CARI drain in place on 3 more weeks of flagyl 500 mg PO TID, Voltaran 50 mg PO TID for 2 weeks, and Bacid 1 PO daily. Patient will f/ u with ID within 2 weeks, PCP within 1 week, and IR once his course of abx is finished. He was taught how to empty the CARI drain and how to shower with it. VNS is set up to visit patient and evaluate at home. Minutes to complete discharge: 30 Discharge Summary Reason For Visit: SEVERE SEPSIS, LIVER ABSCESS Current Active Problems Elevated total protein (Acute) Liver abscess (Acute) Severe sepsis (Acute) Anemia (Chronic) Fever (Chronic) Hypertension (Chronic) Condition: Improved - Instructions Diet, Activity, Other Instructions: You were in the hospital due to an abscess in your liver. You currently have a drain in your liver and will need to keep it in there until you finish antibiotics. Follow instructions provided by nurse on how to care for the drain. Visiting nurse services have been arranged. Continue taking Flagyl 500 mg by mouth three times a day for 3 weeks (until November 19) Follow up with Dr. Singleton (Infectious Disease) within 2 weeks. He will determine whether you need to continue antibiotics. Please follow up with your primary care provider this week. You will need to have your CBC checked this week. Please follow up with Dr. Campbell (interventional radiology) once your antibiotic course is completed. Continue you home medication: -Omeprazole 20 mg by mouth daily -Hyzaar 1 tablet by mouth daily -Esomeprazole magnesium 40 mg by mouth daily -Atarax 25 mg by mouth daily If you have any chest pain, shortness of breath, or any new symptoms please come back to the hospital immediately Referrals: Tereso Singleton MD [Staff Physician] - Ya Islas MD [Primary Care Provider] - Disposition: HOME - Home Medications Comprehensive Discharge Medication List: Ambulatory Orders Esomeprazole Magnesium 40 mg PO DAILY 10/19/16 Hydroxyzine HCl [Atarax -] 25 mg PO DAILY 10/19/16 Losartan 50Mg/Hctz 12.5MG [Hyzaar -] 1 tab PO DAILY 10/19/16 Omeprazole 20 mg PO DAILY 10/19/16 Lactobacillus Acidophilus [Bacid -] 1 each PO DAILY #30 capsule 10/29/16 Metronidazole [Flagyl -] 500 mg PO TID #63 tablet 10/29/16 This patient is new to me today: No Emergency Visit: No Critical Care patient: No - Discharge Referral Referred to [facility] Med [facility] No
== END 2016-10-29 20:24 | disposition home or self-care (01) | DRG 720 ==
LOC: JER 14:40 → JERBED 10-20 00:24 → UNDOADMIN 10-20 00:38 → JERBED 10-20 00:38 → J2W 10-20 10:28 → J8W 10-22 20:11
PROVIDERS: ADMIT Internal Medicine; ATTEND Internal Medicine
PROC: 0F9130Z Drainage of Right Lobe Liver with Drainage Device, Percutaneous Approach (ICD-10-PCS; principal; 2016-10-22)
DX: A41.9 Sepsis, unspecified organism (principal); A06.4 Amebic liver abscess; K21.9 Gastro-esophageal reflux disease without esophagitis; R65.20 Severe sepsis without septic shock; Z95.0 Presence of cardiac pacemaker; E87.2 Acidosis; E87.1 Hypo-osmolality and hyponatremia; N17.9 Acute kidney failure, unspecified; I10 Essential (primary) hypertension; D64.9 Anemia, unspecified; R77.8 Other specified abnormalities of plasma proteins; R05 Cough; E86.0 Dehydration; L98.9 Disorder of the skin and subcutaneous tissue, unspecified; L29.9 Pruritus, unspecified; R19.7 Diarrhea, unspecified
CPT/HCPCS: 36415; 49405; 71010-TC; 71275-TC; 74177-TC; 80048; 80053; 80076; 81003; 82105; 82272; 82378; 82550; 82607; 82728; 82746; 82803; 83540; 83550; 83605; 84155; 84165; 84443; 84484; 85025; 85610; 85651; 85730; 86140; 86480; 86618; 86682; 86753; 87040; 87070; 87075; 87116; 87177; 87205; 87206; 87207; 87209; 87324; 87389; 87449; 88108; 93005; 93010; 94010; 99285-25; C1729; C1769; Q9967

== ENCOUNTER → 2016-11-16 | Day surgery (SDC) | payer OTHER | END | disposition home or self-care (01) | LOC: JRADIR 11:29 | PROVIDERS: ATTEND Internal Medicine | PROC: 0FJ03ZZ Inspection of Liver, Percutaneous Approach (ICD-10-PCS; principal; 2016-11-16) | DX: K75.0 Abscess of liver (principal) | CPT/HCPCS: 49424; 76080-TC ==

== ENCOUNTER 2016-11-26 19:53 | Inpatient (IN) | payer OTHER ==
[2016-11-26 20:09] VITALS: BMI 25.1
--- NOTE | 2016-11-26 21:04 | PDOC ---
History of Present Illness - General History Source: Patient <Nas Al - Last Filed: 11/27/16 00:40> - General History Source: Patient Exam Limitations: No Limitations - History of Present Illness Initial Comments: 11/26/16 21:22 The patient is a 66 year old male with significant past medical history of complete AV block s/p pacemaker in place, hypertension, s/p liver abscess drain (10/22) who presents to the ED for right upper quadrant that began earlier today. Patient recently had a liver abscess drain on 10/22 via IR department. He currently still has the CARI drain in place. Subsequently, patient noted today that the drain has not been draining as much fluid as usual. Denies any pain to the area. Patient reports increasing right upper quadrant pain with associated decreased appetite. States his pain exacerbated with deep inspiration. Denies nausea, vomiting, or diarrhea. Patient also reports fever, but no chills or diaphoresis. The patient denies cough, SOB, chest pain, and palpitations. Allergies: NKDA Social History: No alcohol, tobacco, or drug use reported. Past Surgical History: s/p liver abscess drain (10/22), tonsillectomy, hernia repair(years ago), pacemaker placement Apr 2016 PCP: Dr. Ya Islas <Shannon Mcdonald - Last Filed: 11/27/16 01:41> - General Chief Complaint: Pain, Acute Stated Complaint: FEVER/SHOULDER PAIN Time Seen by Provider: 11/26/16 20:56 Past History - Past Medical History Cardiac Disorders: Yes GI Disorders: Yes (GERD) HTN: Yes - Surgical History Cardiac Surgery: Yes (PPM, complete H block) - Psycho/Social/Smoking Cessation Hx Anxiety: No Suicidal Ideation: No Smoking History: Current every day smoker Have you smoked in the past 12 months: Yes Number of Cigarettes Smoked Daily: 4 Information on smoking cessation initiated: Yes 'Breaking Loose' booklet given: 10/20/16 Hx Alcohol Use: No Drug/Substance Use Hx: No Substance Use Type: None <Nas Al - Last Filed: 11/27/16 00:40> <Shannon Mcdonald - Last Filed: 11/27/16 01:41> - Past Medical History Allergies/Adverse Reactions: Allergies Allergy/AdvReac Type Severity Reaction Status Date / Time No Known Allergies Allergy Verified 10/19/16 14:44 Home Medications: Ambulatory Orders Hydroxyzine HCl [Atarax -] 25 mg PO DAILY 10/19/16 Losartan 50Mg/Hctz 12.5MG [Hyzaar -] 1 tab PO DAILY 10/19/16 Omeprazole 20 mg PO DAILY 10/19/16 Diclofenac Sodium [Voltaren -] 50 mg PO TID #42 tablet. 10/29/16 Lactobacillus Acidophilus [Bacid -] 1 each PO DAILY #30 capsule 10/29/16 Metronidazole [Flagyl -] 500 mg PO TID #63 tablet 10/29/16 Review of Systems - Review of Systems Able to Perform ROS?: Yes Comments:: 11/26/16 21:22 CONSTITUTIONAL: +decreased appetite, fever Absent: no chills, no fatigue EYES: Absent: visual changes ENT: Absent: ear pain, no sore throat CARDIOVASCULAR: Absent: chest pain, no palpitations RESPIRATORY: Absent: cough, no SOB GI: +right upper quadrant pain Absent: abdominal distension, nausea, vomiting, diarrhea, constipation, melena, hematochezia GENITOURINARY: Absent: dysuria, no frequency, no hematuria MUSCULOSKELETAL: Absent: back pain, no arthralgia, no myalgia SKIN: Absent: rash NEURO: Absent: headache <Shannon Mcdonald - Last Filed: 11/27/16 01:41> *Physical Exam - Vital Signs Last Vital Signs Temp Pulse Resp BP Pulse Ox 100.8 F H 122 H 20 133/82 97 11/26/16 20:04 11/26/16 20:04 11/26/16 20:04 11/26/16 20:04 11/26/16 20:04 <Nas Al - Last Filed: 11/27/16 00:40> - Vital Signs Last Vital Signs Temp Pulse Resp BP Pulse Ox 100.8 F H 122 H 20 133/82 97 11/26/16 20:04 11/26/16 20:04 11/26/16 20:04 11/26/16 20:04 11/26/16 20:04 - Physical Exam Comments: 11/26/16 21:22 GENERAL: Well-appearing, well-nourished. No apparent distress. HEENT: Normocephalic, atraumatic. PERRL, EOM intact. CARDIOVASCULAR: Regular rate and rhythm. No murmurs, rubs, or gallops. PULMONARY: No evidence of respiratory distress. Lungs clear to auscultation bilaterally. No wheezing, rales or rhonchi. ABDOMINAL: Soft. Right upper quadrant tenderness. Non-distended. No rebound or guarding. No organomegaly. Normoactive bowel sounds. EXTREMITIES: Normal ROM in all four extremities. No gross deformities. SKIN: Warm and dry. Normal capillary refill. No rashes. No jaundice. CARI drain site is clean, intact, no surrounding erythema, nontender, no drainage. NEUROLOGICAL: No focal neurological deficits. <Shannon Mcdonald - Last Filed: 11/27/16 01:41> Heart Score/ECG Review - ECG Impressions Comment:: 11/26/16 22:12:31 Atrial-sensed ventricular-paced rhythm @99bpm Abnormal ECG 11/26/16 22:12:49 Atrial-sensed ventricular-paced rhythm @100bpm Abnormal ECG <Shannon Mcdonald - Last Filed: 11/27/16 01:41> ED Treatment Course - LABORATORY CBC & Chemistry Diagram: 11/26/16 21:20 11/26/16 21:20 <Nas Al - Last Filed: 11/27/16 00:40> - LABORATORY CBC & Chemistry Diagram: 11/26/16 21:20 11/26/16 21:20 - RADIOLOGY Radiograph Interpretation: 11/27/16 01:36 EXAM: CT ABDOMEN AND PELVIS WITH CONTRAST Reviewed by Imaging information technology advisor: 6.5 x 5.9 x 3.3 cm lobulated collection in liver dome containing a percutaneous drainage catheter, compatible with liver abscess. Additional 1.7 cm hypodensity more inferiorly with ill- defined borders probably also represents a component of the abscess, although there is intervening parenchyma , thus uncertain whether this area is being actively draine. Advise continued followup. No gas bubbles within the collections. Trace pericapsular fluid along right lateral liver border. No bowel obstruction, colitis, or free air. Appendix not seen. No pericecal inflammation to suggest acute appendicitis. Unremarkable pancreas and gallbladder. Cystic foci bilateral kidneys. Small umbilical hernia containing fat. Left greater than right inguinal region hernias containing fat. Pacemaker. Trace right pleural fluid. <Shannon Mcdonald - Last Filed: 11/27/16 01:41> Medical Decision Making - Medical Decision Making 11/27/16 00:40 Dr. Al: The scribe's documentation has been prepared under my direction and personally reviewed by me in its entirery. I confirm that the note above accurately reflects all work, treatment, procedures, and medical decision making performed by me. <Nas Al - Last Filed: 11/27/16 00:40> *DC/Admit/Observation/Transfer - Discharge Dispostion Admit: Yes <Nas Al - Last Filed: 11/27/16 00:40> - Attestations Scribe Attestion: 11/26/16 21:22 Documentation prepared by Shannon Mcdonald, acting as vice president medical affairs for Nas Al DO. <Shannon Mcdonald - Last Filed: 11/27/16 01:41> Diagnosis at time of Disposition: Fever, Liver abscess - Referrals
[2016-11-26] MEDS ORDERED: morphine CARPU-JECT 2 MG/1 ML DISP.SYRIN IVPUSH ONE (21:05)
[2016-11-26] MEDS ORDERED: ONDANSETRON 4 MG/2 ML VIAL IVPUSH STA (21:05)
[2016-11-26] MEDS ORDERED: ACETAMINOPHEN 1000 MG/100 ML VIAL (NON FORMULARY) IVPB ONE (21:08)
[2016-11-26] MEDS ORDERED: IBUPROFEN 800 MG/8 ML IJ IVPB ONE ×2 (21:18→21:20)
[2016-11-26] MEDS ORDERED: ONDANSETRON 4 MG/2 ML VIAL ONE (21:20)
[2016-11-26] MEDS ORDERED: morphine CARPU-JECT 10 MG/1 ML DISP.SYRIN ONE (21:20)
[2016-11-26 21:30] LABS: BASOPHIL 1.3 % (0-2.0); EOSINOPHIL 3.6 % (0-4.5); MCH 28.9 pg (25.7-33.7); MCHC 33.3 g/dl (32.0-35.9); MEAN CELL VOLUME 86.9 fl (80-96); MEAN PLT VOLUME 7.8 fl (7.5-11.1); NEUTROPHILS 60.7 % (42.8-82.8); PLATELET COUNT 293 K/MM3 (134-434); RDW 16.7 % (11.9-15.9); WHITE BLOOD COUNT 10.8 K/mm3 (4.0-10.0)
[2016-11-26 21:39] LABS: INR 1.01 (0.82-1.09); PROTHROMBIN TIME (PATIENT) 11.1 SEC (9.98-11.88)
[2016-11-26 22:20] LABS: AMYLASE 74 U/L (25-115); ANION GAP 8 (8-16); BILIRUBIN,TOTAL 0.6 mg/dL (0.2-1.0); CALCIUM 9.1 mg/dL (8.5-10.1); CO2 30 mmol/L (21-32); CREATININE 0.9 mg/dL (0.7-1.3); GLUCOSE,RANDOM 98 mg/dL (74-106); SGPT/ALT 25 U/L (12-78); TOT PROT 8.6 g/dl (6.4-8.2)
[2016-11-26 22:21] LABS: ALK PHOS 95 U/L (45-117); CPK 39 IU/L (39-308); TROPONIN I 0.02 ng/ml (0.00-0.05)
[2016-11-26 22:22] LABS: MAGNESIUM 1.9 mg/dL (1.8-2.4)
[2016-11-26 22:23] LABS: SGOT/AST 27 U/L (15-37)
--- NOTE | 2016-11-27 00:53 | PN ---
Teaching Attending Note Name of Resident: Estrada Alexis ATTENDING PHYSICIAN STATEMENT I saw and evaluated the patient. I reviewed the resident's note and discussed the case with the resident. I agree with the resident's findings and plan as documented. SUBJECTIVE: 66 M with pnhx of complete AV block with ppm and rheumatic fever with recent admission from 10/20-10/29 for right hepatic lobe abcess. 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 Abcess was drained with CARI drain in place on d/c. CARI drain was to be kept in place for 3 more weeks and with continuation of FLagyl. He noticed that his drain has had decrease drainage of fluid. States he had a visiting nurse come, who wasn't flushing the drain properly. States he last saw and 2 weeks ago and he was told to continue drain as it had been blocked. States he recently had it flushed and it has been draining properly since, States he was compliant with his meds and finished his course of antibiotics. OBJECTIVE: Physical: VS: Vital Signs Period Temp Pulse Resp BP Sys/Taylor Pulse Ox Last 24 Hr 98 F-100.8 F 122 20 133/82 97 GEN:NAD, Resting in bed HEENT: NCAT, PERRL, Throat clear without erythema or exudates CARD: RRR S1, S2 PPM in place RESP: CTAB ABD: BSX4, CARI drain in place draining yellow cloudy fluid EXT: - C/C/E CBCD WBC 10.8 K/mm3 (4.0-10.0) H D 11/26/16 21:20 RBC 4.61 M/mm3 (4.00-5.60) D 11/26/16 21:20 Hgb 13.3 GM/dL (11.7-16.9) D 11/26/16 21:20 Hct 40.1 % (35.4-49) D 11/26/16 21:20 MCV 86.9 fl (80-96) 11/26/16 21:20 MCHC 33.3 g/dl (32.0-35.9) 11/26/16 21:20 RDW 16.7 % (11.9-15.9) H D 11/26/16 21:20 Plt Count 293 K/MM3 (134-434) D 11/26/16 21:20 MPV 7.8 fl (7.5-11.1) D 11/26/16 21:20 CMP Sodium 138 mmol/L (136-145) 11/26/16 21:20 Potassium 4.6 mmol/L (3.5-5.1) 11/26/16 21:20 Chloride 100 mmol/L (98-107) 11/26/16 21:20 Carbon Dioxide 30 mmol/L (21-32) 11/26/16 21:20 Anion Gap 8 (8-16) 11/26/16 21:20 BUN 12 mg/dL (7-18) 11/26/16 21:20 Creatinine 0.9 mg/dL (0.7-1.3) D 11/26/16 21:20 Creat Clearance w eGFR > 60 (>60) 11/26/16 21:20 Random Glucose 98 mg/dL (74-106) 11/26/16 21:20 Calcium 9.1 mg/dL (8.5-10.1) 11/26/16 21:20 Total Bilirubin 0.6 mg/dL (0.2-1.0) D 11/26/16 21:20 AST 27 U/L (15-37) D 11/26/16 21:20 ALT 25 U/L (12-78) D 11/26/16 21:20 Alkaline Phosphatase 95 U/L (45-117) D 11/26/16 21:20 Total Protein 8.6 g/dl (6.4-8.2) H 11/26/16 21:20 Albumin 3.0 g/dl (3.4-5.0) L D 11/26/16 21:20 CARDIAC ENZYMES Creatine Kinase 39 IU/L (39-308) 11/26/16 21:20 Troponin I 0.02 ng/ml (0.00-0.05) 11/26/16 21:20 CT ABD/PELVIS- ASSESSMENT AND PLAN: 66 M with pmhx of rheumatic fever, and AV blockw ppm, with recent admission for E. Histolytica hepatic abcess who presents with fever and tachycardia found to be in Severe Sepsis 1.) Severe Sepsis due to Abcess - FU CT - Repeat LA, IVF - Flagyl, zosyn and Vanco - ID consult, for Paromycin - Gordon Cx - IR consult for possible removal of CARI drain - ESR/CRP - Repeat CBC, Coags, Type and Screen 2.) Dvt Ppx - Low Risk - SCDs Place in MED-Sx
[2016-11-27] MEDS ORDERED: VANCOMYCIN 1,500 MG in DEXTROSE 5%-WATER - 500 ML IVPB ONE (00:55)
[2016-11-27] MEDS ORDERED: PIPERACILLIN/TAZOB 3.375 GM 3.375 GM in DEXTROSE 5%-WATER - 50 ML IVPB ONE (00:57)
[2016-11-27] MEDS ORDERED: SODIUM CHLORIDE 1,000 ML IV STA (00:57)
[2016-11-27] MEDS ORDERED: METRONIDAZOLE 500 MG PREMIXED 100 ML IVPB ONE ×2 (00:57→01:00)
[2016-11-27] MEDS ORDERED: PIPERACILLIN/TAZOB 3.375 GM 50 ML IVPB ONE (01:00)
[2016-11-27] MEDS ORDERED: VANCOMYCIN 1 GRAM (PRE-DOCKED) 500 ML IVPB ONE (01:00)
[2016-11-27] MEDS ORDERED: SODIUM CHLORIDE 1,000 ML IV SCH (01:00)
[2016-11-27] MEDS ORDERED: ACETAMINOPHEN 325 MG TABLET (FP) PO PRN (01:32)
--- NOTE | 2016-11-27 01:49 | HP ---
Admitting History and Physical - Admission History of Present Illness: 66yo M with recent hospitalization for E. histolytica hepatic abscess s/p IR drainage with CARI in October 2016, complete heart block s/p pacemaker (April 2016) , and HTN presents to the ED with 3 days fever alongside RUQ pain. He states that on his previous hospitalization he was discharged with instructions to finish PO Flagyl for a liver abscess and was seen by VNS to help with CARI drain care. He reports not receiving regular CARI drain flushes though. He completed his PO Flagyl regiment and followed up with Dr. Clinton and noted that he had been having minimal drainage of his CARI drain without any leakage near the site of insertion into the abdomen. He then developed fevers and increasing RUQ/ lower torso pain the past 3 days. He confirms nonproductive sporadic cough and hiccoughs. He denies any n/v/d/c, weight loss, headaches, chills, urinary symptoms including dysuria and polyuria, and any constitutional symptoms. Denies any use of paromomycin on previous hospitalization. ER Course notable for: 1) Initiation of Vancomycin IV, Flagyl IV, Zosyn IV 2) Blood cultures x2 and Urine culture ordered 3) CBC, CMP, LA revealing elevated WBC of 10.8 and LA of 2.6 4) CT abdomen -- Reviewed by Imaging business transformation manager: 6.5 x 5.9 x 3.3 cm lobulated collection in liver dome containing a percutaneous drainage catheter, compatible with liver abscess. Additional 1.7 cm hypodensity more inferiorly with ill- defined borders probably also represents a component of the abscess, although there is intervening parenchyma , thus uncertain whether this area is being actively draine. Advise continued followup. No gas bubbles within the collections. Trace pericapsular fluid along right lateral liver border. No bowel obstruction, colitis, or free air. Appendix not seen. No pericecal inflammation to suggest acute appendicitis. Unremarkable pancreas and gallbladder. Cystic foci bilateral kidneys. Small umbilical hernia containing fat. Left greater than right inguinal region hernias containing fat. Pacemaker. Trace right pleural fluid. History Source: Patient Limitations to Obtaining History: No Limitations - Past Medical History Cardiovascular: Yes: HTN, Other (HEART BLOCK/S/P PACEMAKER) Pulmonary: Yes: Other (COUGH) Gastrointestinal: Yes: GERD, Other (RECENT DX OF LIVER ABSCESS) Heme/Onc: Yes: Anemia - Past Surgical History Past Surgical History: Yes: Permanent Pacemaker Additional Past Surgical History: Liver abscess drainage with CARI placement 10/2016 - Smoking History Smoking history: Current every day smoker Have you smoked in the past 12 months: Yes Aproximately how many cigarettes per day: 4 - Alcohol/Substance Use Hx Alcohol Use: No Home Medications - Allergies Allergies/Adverse Reactions: Allergies Allergy/AdvReac Type Severity Reaction Status Date / Time No Known Allergies Allergy Verified 10/19/16 14:44 - Home Medications Home Medications: Ambulatory Orders Hydroxyzine HCl [Atarax -] 25 mg PO DAILY 10/19/16 Losartan 50Mg/Hctz 12.5MG [Hyzaar -] 1 tab PO DAILY 10/19/16 Omeprazole 20 mg PO DAILY 10/19/16 Diclofenac Sodium [Voltaren -] 50 mg PO TID #42 tablet. 10/29/16 Lactobacillus Acidophilus [Bacid -] 1 each PO DAILY #30 capsule 10/29/16 Metronidazole [Flagyl -] 500 mg PO TID #63 tablet 10/29/16 Physical Examination Vital Signs: Vital Signs Temperature 98 F 11/27/16 00:58 Pulse Rate 122 H 11/26/16 20:04 Respiratory Rate 20 11/26/16 20:04 Blood Pressure 133/82 11/26/16 20:04 O2 Sat by Pulse Oximetry (%) 97 11/26/16 20:04 Constitutional: Yes: Well Nourished, No Distress, Calm Eyes: Yes: Conjunctiva Clear, EOM Intact, PERRL HENT: Yes: Normocephalic, Other (Moist mucosa) Cardiovascular: Yes: Regular Rate and Rhythm. No: Murmur Respiratory: Yes: Regular, CTA Bilaterally. No: Rales, Rhonchi, Wheezes Gastrointestinal: Yes: Normal Bowel Sounds, Soft. No: Distention, Tenderness, Tenderness, Rebound Edema: No Peripheral Pulses WNL: Yes Wound/Incision: Yes: Other (CARI drain minimally draining with serous-yellowish fluid in tube; No leakage from site of abdominal insertion) Neurological: Yes: Alert, Oriented Psychiatric: Yes: Alert, Oriented Imaging - Results Chest X-ray: Image Reviewed Cat Scan: Image Reviewed Assessment/Plan 66yo M with recent history of liver abscess drainage reporting possible clogged CARI drain and completed PO Flagyl regiment presenting with 100.8 fever, WBC 10.8 , Pulse 122 and LA 2.6. CARI drain minimially draining serous-yellowish fluid without any leakage around site of entry into abdomen. 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 Clinton of ID --Consulted Dr. Bennett of IR FEN: Fluids: NS @ 100mls/hr Electrolyte abnormalities: None Nutrition: NPO for now PPX DVT - SCDs GI - Not indicated at this time Dispo: Admit to M/S; f/u with ID and IR Visit type - Emergency Visit Emergency Visit: Yes ED Registration Date: 11/27/16 Care time: The patient presented to the Emergency Department on the above date and was hospitalized for further evaluation of their emergent condition. - New Patient This patient is new to me today: Yes Date on this admission: 11/27/16 - Critical Care Critical Care patient: No
[2016-11-27] MEDS ORDERED: HEPARIN NA (PORCINE) 5,000 UNITS/ML 1ML VIAL SQ SCH (02:00)
[2016-11-27 08:35] LABS: BASOPHIL 1.1 % (0-2.0); MCH 28.7 pg (25.7-33.7); MCHC 32.6 g/dl (32.0-35.9); MEAN PLT VOLUME 7.7 fl (7.5-11.1); PLATELET COUNT 251 K/MM3 (134-434); WHITE BLOOD COUNT 6.6 K/mm3 (4.0-10.0)
[2016-11-27 09:50] LABS: URINE APPEARANCE CLEAR; URINE BILIRUBIN NEGATIVE (NEGATIVE); URINE BLOOD NEGATIVE (NEGATIVE); URINE COLOR LTYELLOW; URINE GLUCOSE (UA) NEGATIVE (NEGATIVE); URINE KETONE NEGATIVE (NEGATIVE); URINE LEUK ESTERASE NEGATIVE (NEGATIVE); URINE NITRITE NEGATIVE (NEGATIVE); URINE PROTEIN NEGATIVE (NEGATIVE); URINE UROBILINOGEN NEGATIVE mg/dL (0.2-1.0)
[2016-11-27] MEDS ORDERED: morphine CARPU-JECT 4 MG/1 ML DISP.SYRIN IVPUSH ONE (09:57)
[2016-11-27] MEDS ORDERED: METRONIDAZOLE 500 MG PREMIXED 100 ML IVPB SCH (10:00)
[2016-11-27] MEDS ORDERED: hydrOXYzine HCL 25 MG TABLET (FP) PO SCH (10:00)
[2016-11-27] MEDS: LACTOBACILLUS ACIDOPHILUS 1 EACH TAB (FP) PO SCH (10:19)
[2016-11-27] MEDS: LOSARTAN 50MG/HCTZ 12.5MG 1 TAB (FP) PO SCH (10:19)
--- NOTE | 2016-11-27 11:46 | EKG ---
Test Reason : Blood Pressure : / mmHG Vent. Rate : 100 BPM Atrial Rate : 100 BPM P-R Int : 188 ms QRS Dur : 158 ms QT Int : 404 ms P-R-T Axes : 037 061 -05 degrees QTc Int : 521 ms Atrial-sensed ventricular-paced rhythm ABNORMAL ECG WHEN COMPARED WITH ECG OF 19-OCT-2016 16:26, VENT. RATE HAS DECREASED BY 18 BPM CLINICAL CORRELATION IS RECOMMENDED Confirmed by SARTHAK YUN MD ([id number]) on 11/27/2016 11:46:33 AM Referred By: Confirmed By:SARTHAK YUN MD
--- NOTE | 2016-11-27 13:05 | PN ---
Physical Exam: SUBJECTIVE: Patient seen and examined No acute events overnight. Patient has pain at the drainage site. Patient went down to IR for drain replacement today. OBJECTIVE: Vital Signs Period Temp Pulse Resp BP Sys/Taylor Pulse Ox Last 24 Hr 97.8 F-98 F 63-88 14-20 117-138/65-99 95-100 GENERAL: Awake, alert, and fully oriented, in no acute distress. HEAD: Normal with no signs of trauma. EYES: Pupils equal, round and reactive to light, extraocular movements intact, sclera anicteric, conjunctiva clear. No lid lag. EARS, NOSE, THROAT: Ears normal, nares patent, oropharynx clear without exudates. Moist mucous membranes. NECK: Normal range of motion, supple without lymphadenopathy, JVD, or masses. LUNGS: Breath sounds equal, clear to auscultation bilaterally. No wheezes, and no crackles. No accessory muscle use. HEART: Regular rate and rhythm, normal S1 and S2 without murmur, rub or gallop. Pacemaker in place ABDOMEN: Soft, nontender, not distended, normoactive bowel sounds, no guarding, no rebound, no masses. No hepatomegaly or splenomegaly. CARI drain in place. Tendernes surrounding drain MUSCULOSKELETAL: Normal range of motion at all joints. No bony deformities or tenderness. No CVA tenderness. UPPER EXTREMITIES: 2+ pulses, warm, well-perfused. No cyanosis. No clubbing. Cap refill <2 seconds. No peripheral edema. LOWER EXTREMITIES: 2+ pulses, warm, well-perfused. No calf tenderness. No peripheral edema. NEUROLOGICAL: Cranial nerves II-XII intact. Normal speech. Normal gait. PSYCHIATRIC: Cooperative. Good eye contact. Appropriate mood and affect. SKIN: Warm, dry, normal turgor, no rashes or lesions noted. Laboratory Results - last 24 hr 11/27/16 11/27/16 06:00 07:00 WBC 6.6 D RBC 4.30 Hgb 12.4 Hct 37.9 MCV 88.0 MCH 28.7 MCHC 32.6 RDW 17.0 H Plt Count 251 MPV 7.7 Neutrophils % 50.0 Lymphocytes % 29.9 Monocytes % 12.0 H Eosinophils % 7.0 H D Basophils % 1.1 Urine Color Ltyellow Urine Appearance Clear Urine pH 5.0 Urine Protein Negative Urine Glucose (UA) Negative Urine Ketones Negative Urine Blood Negative Urine Nitrite Negative Urine Bilirubin Negative Urine Urobilinogen Negative Ur Leukocyte Esterase Negative Active Medications Generic Name Dose Route Start Last Admin Trade Name Freq PRN Reason Stop Dose Admin Acetaminophen 650 mg 11/27/16 01:32 Tylenol - PO Q4H PRN FEVER OR PAIN HCTZ/Losartan Potassium 1 tab 11/27/16 10:00 11/27/16 10:19 Hyzaar - PO 1 tab DAILY CHRISTEN Administration Metronidazole 100 mls @ 100 mls/hr 11/27/16 10:00 11/27/16 10:19 Flagyl 500mg Premixed Ivpb - IVPB 100 mls/hr Q8H-IV CHRISTEN Administration Lactobacillus Acidophilus 1 tab 11/27/16 10:00 11/27/16 10:19 Bacid - PO 1 tab DAILY CHRISTEN Administration ASSESSMENT/PLAN: 66yo M with recent history of liver abscess drainage reporting possible clogged CARI drain and completed PO Flagyl regiment presenting with 100.8 fever, WBC 10.8 , Pulse 122 and LA 2.6. CARI drain minimially draining serous-yellowish fluid without any leakage around site of entry into abdomen. # Severe sepsis secondary to liver abscess s/p CARI placement (possible obstruction of drain) --SIRS 3/4 --Lactic acidosis resolved --Blood cultures, urine cultures pending --Continue IV Flagyl 500 mg q8 --Tylenol 650mg q4 PRN for fever --Voltaren 50 mg po tid --Morphine 4mg q4h prn --Consulted Dr. Clinton of ID --Consulted Dr. Bennett of IR # HTN --Hyzaar 1 tab po daily FEN: Fluids: None Electrolyte abnormalities: None Nutrition: NPO for now PPX DVT - SCDs GI - Not indicated at this time Dispo: F/u with ID regarding antibiotics Visit type - Emergency Visit Emergency Visit: Yes ED Registration Date: 11/27/16 Care time: The patient presented to the Emergency Department on the above date and was hospitalized for further evaluation of their emergent condition. - New Patient This patient is new to me today: No - Critical Care Critical Care patient: No
[2016-11-27] MEDS ORDERED: morphine CARPU-JECT 4 MG/1 ML DISP.SYRIN ONE (13:07)
[2016-11-27] MEDS ORDERED: DICLOFENAC SODIUM 25 MG TABLET.DR PO ONE (14:48)
[2016-11-27] MEDS ORDERED: morphine CARPU-JECT 4 MG/1 ML DISP.SYRIN IVPUSH PRN (15:14)
--- NOTE | 2016-11-27 16:13 | CONSULT ---
Consultation: REQUESTING PROVIDER: CONSULT REQUEST: ID HISTORY OF PRESENT ILLNESS: 66 yo M with recent hospitalization for E. histolytica hepatic abscess s/p IR drainage with CARI in October, presented to the ED with RUQ abdominal pain and fever for 3 days. On his previous hospitalization he was discharged on instructions to finish PO flagyl, and was seen by VNS to help with CARI drain care. After completing his Flagyl regimen, he was scheduled to remove the CARI drain but realized it wasn't draining appropriately and he wasn't getting it routinely flushed. Since then he has been experiencing severe RUQ pain and nonproductive sporadic cough for the last 3 days. He denies nausea/vomiting, diarrhea, cough, weight loss, headaches, chills, and urinary symptoms. PMH: HTN, complete heart block s/p pacemaker (april 2016) Home Meds: Hydroxyzine HCl [Atarax -] 25 mg PO DAILY 10/19/16 Losartan 50Mg/Hctz 12.5MG [Hyzaar -] 1 tab PO DAILY 10/19/16 Omeprazole 20 mg PO DAILY 10/19/16 Diclofenac Sodium [Voltaren -] 50 mg PO TID #42 tablet. 10/29/16 Lactobacillus Acidophilus [Bacid -] 1 each PO DAILY #30 capsule 10/29/16 Metronidazole [Flagyl -] 500 mg PO TID #63 tablet 10/29/16 Allergies: NKDA SH: smokes 4 cigarettes a day, denies alcohol and drugs REVIEW OF SYSTEMS: CONSTITUTIONAL: Absent: fever, chills, diaphoresis, generalized weakness, malaise, loss of appetite, weight change HEENT: Absent: rhinorrhea, nasal congestion, throat pain, throat swelling, difficulty swallowing, mouth swelling, ear pain, eye pain, visual changes CARDIOVASCULAR: Absent: chest pain, syncope, palpitations, irregular heart rate, lightheadedness , peripheral edema RESPIRATORY: Absent: cough, shortness of breath, dyspnea with exertion, orthopnea, wheezing, stridor, hemoptysis GASTROINTESTINAL: RUQ pain abdominal pain Absent: abdominal distension, nausea, vomiting, diarrhea, constipation, melena, hematochezia GENITOURINARY: Absent: dysuria, frequency, urgency, hesitancy, hematuria, flank pain, genital pain MUSCULOSKELETAL: Absent: myalgia, arthralgia, joint swelling, back pain, neck pain SKIN: Absent: rash, itching, pallor HEMATOLOGIC/IMMUNOLOGIC: Absent: easy bleeding, easy bruising, lymphadenopathy, frequent infections ENDOCRINE: Absent: unexplained weight gain, unexplained weight loss, heat intolerance, cold intolerance NEUROLOGIC: Absent: headache, focal weakness or paresthesias, dizziness, unsteady gait, seizure, mental status changes, bladder or bowel incontinence PSYCHIATRIC: Absent: anxiety, depression, suicidal or homicidal ideation, hallucinations. PHYSICAL EXAMINATION Vital Signs - 24 hr 11/27/16 11/27/16 11/27/16 00:49 00:58 01:50 Temperature 97.8 F 98 F Pulse Rate 70 Pulse Rate [ 63 Brachial] Pulse Rate [ Left Upper Arm] Respiratory 18 16 Rate Respiratory Rate [Left Upper Arm] Blood Pressure 129/69 Blood Pressure [Left Upper Arm ] Blood Pressure 117/68 [Right Arm] O2 Sat by Pulse 95 Oximetry (%) O2 Sat by Pulse Oximetry (%) [ Left Upper Arm] 11/27/16 11/27/16 11/27/16 02:55 06:26 08:00 Temperature 97.9 F 97.8 F Pulse Rate 66 65 Pulse Rate [ Brachial] Pulse Rate [ Left Upper Arm] Respiratory 18 18 20 Rate Respiratory Rate [Left Upper Arm] Blood Pressure 129/99 125/65 Blood Pressure [Left Upper Arm ] Blood Pressure [Right Arm] O2 Sat by Pulse 95 96 Oximetry (%) O2 Sat by Pulse Oximetry (%) [ Left Upper Arm] 11/27/16 11/27/16 11/27/16 11:30 11:36 11:49 Temperature Pulse Rate 87 78 Pulse Rate [ Brachial] Pulse Rate [ 88 Left Upper Arm] Respiratory 14 14 Rate Respiratory 14 Rate [Left Upper Arm] Blood Pressure 132/83 138/84 Blood Pressure 127/81 [Left Upper Arm ] Blood Pressure [Right Arm] O2 Sat by Pulse 100 99 Oximetry (%) O2 Sat by Pulse 100 Oximetry (%) [ Left Upper Arm] 11/27/16 11/27/16 12:00 13:32 Temperature 98.2 F 98.1 F Pulse Rate 72 68 Pulse Rate [ Brachial] Pulse Rate [ Left Upper Arm] Respiratory 20 17 Rate Respiratory Rate [Left Upper Arm] Blood Pressure 140/74 141/82 Blood Pressure [Left Upper Arm ] Blood Pressure [Right Arm] O2 Sat by Pulse Oximetry (%) O2 Sat by Pulse Oximetry (%) [ Left Upper Arm] GENERAL: NAD HEAD: Normal with no signs of trauma. EYES: sclera anicteric, conjunctiva clear EARS, NOSE, THROAT: Ears normal, nares patent, oropharynx clear without exudates. Moist mucous membranes. NECK: Normal range of motion, supple without lymphadenopathy, JVD, or masses. LUNGS: Breath sounds equal, clear to auscultation bilaterally. No wheezes, and no crackles. No accessory muscle use. HEART: Regular rate and rhythm, normal S1 and S2 without murmur, rub or gallop. ABDOMEN: Soft, nontender, not distended, normoactive bowel sounds, no guarding, no rebound, no masses. No hepatomegaly or splenomegaly. UPPER EXTREMITIES: No peripheral edema. LOWER EXTREMITIES: No peripheral edema. PSYCHIATRIC: Cooperative. Good eye contact. Appropriate mood and affect. Wound/Incision: CARI drain Laboratory Results - last 24 hr 11/27/16 11/27/16 06:00 07:00 WBC 6.6 D RBC 4.30 Hgb 12.4 Hct 37.9 MCV 88.0 MCH 28.7 MCHC 32.6 RDW 17.0 H Plt Count 251 MPV 7.7 Neutrophils % 50.0 Lymphocytes % 29.9 Monocytes % 12.0 H Eosinophils % 7.0 H D Basophils % 1.1 Urine Color Ltyellow Urine Appearance Clear Urine pH 5.0 Urine Protein Negative Urine Glucose (UA) Negative Urine Ketones Negative Urine Blood Negative Urine Nitrite Negative Urine Bilirubin Negative Urine Urobilinogen Negative Ur Leukocyte Esterase Negative Active Medications Generic Name Dose Route Start Last Admin Trade Name Freq PRN Reason Stop Dose Admin Acetaminophen 650 mg 11/27/16 01:32 Tylenol - PO Q4H PRN FEVER OR PAIN Diclofenac Sodium 50 mg 11/27/16 22:00 Voltaren - PO TID CHRISTEN HCTZ/Losartan Potassium 1 tab 11/27/16 10:00 11/27/16 10:19 Hyzaar - PO 1 tab DAILY CHRISTEN Administration Lactobacillus Acidophilus 1 tab 11/27/16 10:00 11/27/16 10:19 Bacid - PO 1 tab DAILY CHRISTEN Administration Morphine Sulfate 4 mg 11/27/16 15:14 Morphine Injection - IVPUSH Q4H PRN PAIN ASSESSMENT/PLAN: 1) Liver abscess/Fever -completed course of antibiotic for abscess -Hold Abx -Will observe off antibiotics -pending wound cx, urine cx, blood cx Dispo: We will continue to follow the patient. Thank you for this consultative opportunity. Visit type - Emergency Visit Emergency Visit: Yes ED Registration Date: 11/27/16 Care time: The patient presented to the Emergency Department on the above date and was hospitalized for further evaluation of their emergent condition. - New Patient This patient is new to me today: No - Critical Care Critical Care patient: No
--- NOTE | 2016-11-27 16:15 | PN ---
Teaching Attending Note Name of Resident: Pratibha Albrecht ATTENDING PHYSICIAN STATEMENT I saw and evaluated the patient. I reviewed the resident's note and discussed the case with the resident. I agree with the resident's findings and plan as documented. SUBJECTIVE: OBJECTIVE: ASSESSMENT AND PLAN: Completed course of Flagyl for amebic liver abscess Observe off antibiotics
--- NOTE | 2016-11-27 16:46 | PN ---
Teaching Attending Note Name of Resident: Andrea Laguerre ATTENDING PHYSICIAN STATEMENT I saw and evaluated the patient. I reviewed the resident's note and discussed the case with the resident. I agree with the resident's findings and plan as documented. SUBJECTIVE:c/o RUQ pain that been progressively worsening for the past week. also noted that there has been decreased drainage during this time and been having minimal output. claims completed abx therapy at home. denies CP, SOB, fever, chills, N/V/C/D OBJECTIVE: Last Vital Signs Temp Pulse Resp BP Pulse Ox 98.1 F 68 17 141/82 99 11/27/16 13:32 11/27/16 13:32 11/27/16 13:32 11/27/16 13:32 11/27/16 11:49 General NAD Abdomen soft NT/ND +RUQ CARI drain with some mild tenderness surrounding with no erythema or drainage noted ASSESSMENT AND PLAN: 66yo M wtih PMH complete heart block s/p PPM, HTN and liver abscess presented to the ER with fevers and abdominal pain 1. severe sepsis due to Entomeba Histolytica with liver abscess- s/p CARI drain last admission was d/c on flagyl po. Tm 100.8 on admission. with leukocytosis and lactic acidosis both of which have resolved. Plan for CARI catheter exchange by IR. will need to evaluate if more intervention required at this time since abscess persists. slight decrease in size. on flagyl. Cx sent. will f/u ID recommendations. pain control 2. HTN- controlled. cont home medications 3. complete heart block 4. DVT ppx- will start lovenox after procedure.
[2016-11-27] MEDS: DICLOFENAC SODIUM 25 MG TABLET.DR PO SCH ×2 (17:22→21:43)
[2016-11-28] MEDS: DICLOFENAC SODIUM 25 MG TABLET.DR PO SCH ×2 (06:50→14:46)
[2016-11-28 08:06] LABS: BASOPHIL 1.4 % (0-2.0); EOSINOPHIL 10.4 % (0-4.5); MCH 28.5 pg (25.7-33.7); MCHC 32.1 g/dl (32.0-35.9); MEAN CELL VOLUME 88.7 fl (80-96); MEAN PLT VOLUME 7.6 fl (7.5-11.1); NEUTROPHILS 40.3 % (42.8-82.8); PLATELET COUNT 235 K/MM3 (134-434); RDW 16.9 % (11.9-15.9); WHITE BLOOD COUNT 5.6 K/mm3 (4.0-10.0)
[2016-11-28 09:03] LABS: ALBUMIN 2.6 g/dl (3.4-5.0); ANION GAP 6 (8-16); CALCIUM 8.6 mg/dL (8.5-10.1); CO2 31 mmol/L (21-32); CREATININE 0.8 mg/dL (0.7-1.3); GLUCOSE,RANDOM 86 mg/dL (74-106); SGOT/AST 19 U/L (15-37); SGPT/ALT 19 U/L (12-78)
[2016-11-28 09:05] LABS: ALK PHOS 73 U/L (45-117); BILIRUBIN,TOTAL 0.9 mg/dL (0.2-1.0); TOT PROT 7.1 g/dl (6.4-8.2)
[2016-11-28] MEDS ORDERED: ENOXAPARIN NA (PORCINE) 40 MG/0.4 ML DISP.SYRIN SQ SCH (10:00)
[2016-11-28] MEDS: LACTOBACILLUS ACIDOPHILUS 1 EACH TAB (FP) PO SCH (10:08)
[2016-11-28] MEDS: LOSARTAN 50MG/HCTZ 12.5MG 1 TAB (FP) PO SCH ×2 (10:08→10:15)
--- NOTE | 2016-11-28 10:54 | PN ---
Physical Exam: SUBJECTIVE: Patient seen and examined. Not offering any complaints. He feels much better than yesterday and denies pain. He denies nausea/vomiting, fever, diarrhea, chest pain, and abdominal pain. OBJECTIVE: Vital Signs Period Temp Pulse Resp BP Sys/Taylor Pulse Ox Last 24 Hr 98.0 F-99.2 F 66-89 14-20 105-141/64-94 99-100 GENERAL: NAD HEAD: Normal with no signs of trauma. EYES: sclera anicteric, conjunctiva clear EARS, NOSE, THROAT: Ears normal, nares patent, oropharynx clear without exudates. Moist mucous membranes. NECK: Normal range of motion, supple without lymphadenopathy, JVD, or masses. LUNGS: Breath sounds equal, clear to auscultation bilaterally. No wheezes, and no crackles. No accessory muscle use. HEART: Regular rate and rhythm, normal S1 and S2 without murmur, rub or gallop. ABDOMEN: Soft, nontender, not distended, normoactive bowel sounds, no guarding, no rebound, no masses. No hepatomegaly or splenomegaly. UPPER EXTREMITIES: No peripheral edema. LOWER EXTREMITIES: No peripheral edema. PSYCHIATRIC: Cooperative. Good eye contact. Appropriate mood and affect. Wound/Incision: CARI drain Laboratory Results - last 24 hr 11/27/16 11/28/16 11/28/16 06:00 06:00 06:00 WBC 5.6 RBC 4.11 Hgb 11.7 Hct 36.5 MCV 88.7 MCH 28.5 MCHC 32.1 RDW 16.9 H Plt Count 235 MPV 7.6 Neutrophils % 40.3 L Lymphocytes % 35.8 Monocytes % 12.1 H Eosinophils % 10.4 H Basophils % 1.4 Sodium 138 Potassium 4.4 Chloride 101 Carbon Dioxide 31 Anion Gap 6 L BUN 11 Creatinine 0.8 Creat Clearance w eGFR > 60 Random Glucose 86 Calcium 8.6 Total Bilirubin 0.9 D AST 19 D ALT 19 D Alkaline Phosphatase 73 D Total Protein 7.1 Albumin 2.6 L Urine Color Ltyellow Urine Appearance Clear Urine pH 5.0 Ur Specific [place] <= 1.005 Urine Protein Negative Urine Glucose (UA) Negative Urine Ketones Negative Urine Blood Negative Urine Nitrite Negative Urine Bilirubin Negative Urine Urobilinogen Negative Ur Leukocyte Esterase Negative Active Medications Generic Name Dose Route Start Last Admin Trade Name Freq PRN Reason Stop Dose Admin Acetaminophen 650 mg 08/22/17 01:32 Tylenol - PO Q4H PRN FEVER OR PAIN Diclofenac Sodium 50 mg 11/27/16 22:00 11/28/16 06:50 Voltaren - PO 50 mg TID CHRISTEN Administration Enoxaparin Sodium 40 mg 11/28/16 10:00 11/28/16 10:08 Lovenox - SQ 40 mg DAILY CHRISTEN Administration HCTZ/Losartan Potassium 1 tab 11/27/16 10:00 11/28/16 10:08 Hyzaar - PO 1 tab DAILY CHRISTEN Administration Lactobacillus Acidophilus 1 tab 11/27/16 10:00 11/28/16 10:08 Bacid - PO 1 tab DAILY CHRISTEN Administration Morphine Sulfate 4 mg 11/27/16 15:14 11/27/16 19:16 Morphine Injection - IVPUSH 4 mg Q4H PRN Administration PAIN ASSESSMENT/PLAN: 1) Liver abscess/Fever -completed course of antibiotic for abscess -blood cultures negative -Continue holding abx -Will observe - Visit type - Emergency Visit Emergency Visit: Yes ED Registration Date: 11/27/16 Care time: The patient presented to the Emergency Department on the above date and was hospitalized for further evaluation of their emergent condition. - New Patient This patient is new to me today: No - Critical Care Critical Care patient: No
--- NOTE | 2016-11-28 14:19 | PN ---
Teaching Attending Note Name of Resident: Andrea Laguerre ATTENDING PHYSICIAN STATEMENT I saw and evaluated the patient. I reviewed the resident's note and discussed the case with the resident. I agree with the resident's findings and plan as documented. SUBJECTIVE:asymptomatic. denies pain or fevers, CP, SOB, chills, N/V/C/D OBJECTIVE: Last Vital Signs Temp Pulse Resp BP Pulse Ox 98.0 F 66 20 105/64 100 11/28/16 08:46 11/28/16 08:46 11/28/16 09:00 11/28/16 08:46 11/28/16 09:00 Intake & Output 11/25/16 11/26/16 11/27/16 11/28/16 23:59 23:59 23:59 23:59 Intake Total 700 Output Total 400 5 Balance 300 -5 Weight 170 lb 170 lb General NAD Abdomen soft NT/ND +RUQ CARI drain no surrounding erythema or drainage, serosangenous drainage ASSESSMENT AND PLAN: 66yo M wtih PMH complete heart block s/p PPM, HTN and liver abscess presented to the ER with fevers and abdominal pain 1. 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 afebrile >24H. leukocytosis resolved. monitor off abx. BCx negative and Cx from drain pending. will need repeat imaging in several weeks to determine if improving or not. will need ID follow up as outpatient. cont pain control with toradol 2. HTN- controlled. cont home medications 3. complete heart block 4. DVT ppx- lovenox 5. d/c planning with VNS
[2016-11-28] MEDS ORDERED: PT OWN MED DRAWER 7, Y5N ONE (14:35)
[2016-11-28 14:37] VITALS: BP 113/74; PULSE 58; TEMP 98.2
[2016-11-28] MEDS ORDERED: morphine CARPU-JECT 2 MG/1 ML DISP.SYRIN IVPUSH PRN (14:37)
--- NOTE | 2016-11-28 16:47 | DS ---
Physical Exam: VS/LABS Microbiology 11/28/16 10:40 Drainage Gram Stain - Final 11/27/16 00:49 Urine - Urine Clean Catch Urine Culture - Final NO GROWTH OBTAINED 11/26/16 21:30 Blood - Peripheral Venous Blood Culture - Preliminary NO GROWTH OBTAINED AFTER 24 HOURS, INCUBATION TO CONTINUE FOR 4 DAYS. 11/26/16 21:20 Blood - Peripheral Venous Blood Culture - Preliminary NO GROWTH OBTAINED AFTER 24 HOURS, INCUBATION TO CONTINUE FOR 4 DAYS. Selected Entries 11/26/16 11/28/16 11/28/16 20:04 09:00 14:00 Temperature 100.8 F H 98.2 F Pulse Rate 122 H 58 L Respiratory 20 20 Rate Blood Pressure 133/82 113/74 O2 Sat by Pulse 100 Oximetry (%) Laboratory Tests 11/26/16 11/26/16 11/26/16 21:20 21:20 21:20 WBC 10.8 H D Sodium Potassium Creatinine Random Glucose Lactic Acid 2.6 H* B-Natriuretic Peptide 548.31 H Urine Color Urine Appearance Urine pH Ur Specific [place] Urine Protein Urine Glucose (UA) Urine Ketones Urine Blood Urine Nitrite Urine Bilirubin Urine Urobilinogen Ur Leukocyte Esterase 11/27/16 11/27/16 11/28/16 00:20 06:00 06:00 WBC 5.6 Sodium Potassium Creatinine Random Glucose Lactic Acid 1.0 B-Natriuretic Peptide Urine Color Ltyellow Urine Appearance Clear Urine pH 5.0 Ur Specific [place] <= 1.005 Urine Protein Negative Urine Glucose (UA) Negative Urine Ketones Negative Urine Blood Negative Urine Nitrite Negative Urine Bilirubin Negative Urine Urobilinogen Negative Ur Leukocyte Esterase Negative 11/28/16 06:00 WBC Sodium 138 Potassium 4.4 Creatinine 0.8 Random Glucose 86 Lactic Acid B-Natriuretic Peptide Urine Color Urine Appearance Urine pH Ur Specific [place] Urine Protein Urine Glucose (UA) Urine Ketones Urine Blood Urine Nitrite Urine Bilirubin Urine Urobilinogen Ur Leukocyte Esterase CT abdomen results- 6.5 x 5.9 x 3.3 cm lobulated collection in liver dome containing a percutaneous drainage catheter, compatible with liver abscess. Additional 1.7 cm hypodensity more inferiorly with ill- defined borders probably also represents a component of the abscess, although there is intervening parenchyma , thus uncertain whether this area is being actively draine. Advise continued followup. No gas bubbles within the collections. Trace pericapsular fluid along right lateral liver border. No bowel obstruction, colitis, or free air. Appendix not seen. No pericecal inflammation to suggest acute appendicitis. Unremarkable pancreas and gallbladder. Cystic foci bilateral kidneys. Small umbilical hernia containing fat. Left greater than right inguinal region hernias containing fat. Pacemaker. Trace right pleural fluid. HOSPITAL COURSE: Date of Admission:11/27/16 Date of Discharge: 11/28/16 66yo M with recent hospitalization for E. histolytica hepatic abscess s/p IR drainage with CARI in October 2016, complete heart block s/p pacemaker (April 2016) , and HTN presented to the ED with 3 days fever alongside RUQ pain. He stateed that on his previous hospitalization he was discharged with instructions to finish PO Flagyl for a liver abscess and was seen by [facility] to help with CARI drain care. He reports not receiving regular CARI drain flushes though. He completed his PO Flagyl regiment and followed up with Dr. Clinton and noted that he had been having minimal drainage of his CARI drain without any leakage near the site of insertion into the abdomen. He then developed fevers and increasing RUQ/ lower torso pain the past 3 days. He confirms nonproductive sporadic cough. ER Course notable for initiation of Vancomycin IV, Flagyl IV, Zosyn IV, Blood cultures x2 and Urine culture ordered, CBC, CMP, ,LA revealing elevated WBC of 10.8 and LA of 2.6, and CT abdomen-- results above. Patient admitted for severe sepsis 2/2 to liver abscess. Lactic acidosis resolved. ID was consulted, and recommended holding antibiotics. Patient underwent CARI catheter exchange by IR on 11/27. Patient was afebrile and leukocytosis resolved. Patient discharged home with VNS. VNS to flush the CARI drain and patient to empty the drain. Instructions for flushing: Turn the stopcock away from the patient. Flush 5 cc of normal saline. Turn the stopcock back to it's original position before removing the flush. Minutes to complete discharge: 45 Discharge Summary Reason For Visit: FEVER LIVER ABSCESS Current Active Problems Fever (Acute) Severe sepsis (Acute) Hypertension (Chronic) Liver abscess (Chronic) Condition: Improved - Instructions Diet, Activity, Other Instructions: You were in the hospital due to fevers. You had the drain to your abscess switched for a new one. The visiting nurse can flush your drain 1 time per day with 5 cc of normal saline Turn the stopcock away from the patient. Flush 5 cc of normal saline. Turn the stopcock back to it's original position before removing the flush. You have finished your antibiotic course. Please follow up with your primary care provider within 1 week. Please continue your home medications: -Omeprazole 20 mg by mouth daily -Hyzaar 1 tablet by mouth daily -Esomeprazole magnesium 40 mg by mouth daily -Atarax 25 mg by mouth daily If you have any chest pain, shortness of breath, or any new symptoms please come back to the hospital immediately. Referrals: Ya Islas MD [Primary Care Provider] - Disposition: HOME - Home Medications Comprehensive Discharge Medication List: Ambulatory Orders Hydroxyzine HCl [Atarax -] 25 mg PO DAILY 10/19/16 Losartan 50Mg/Hctz 12.5MG [Hyzaar -] 1 tab PO DAILY 10/19/16 Omeprazole 20 mg PO DAILY 10/19/16 Diclofenac Sodium [Voltaren -] 50 mg PO TID #42 tablet. 10/29/16 Lactobacillus Acidophilus [Bacid -] 1 each PO DAILY #30 capsule 10/29/16 Diclofenac Sodium [Voltaren -] 50 mg PO TID #90 tablet 11/28/16 This patient is new to me today: No Emergency Visit: Yes ED Registration Date: 11/27/16 Care time: The patient presented to the Emergency Department on the above date and was hospitalized for further evaluation of their emergent condition. Critical Care patient: No - Discharge Referral Referred to [facility] No
== END 2016-11-28 17:35 | disposition home or self-care (01) | DRG 721 ==
LOC: JER 19:53 → JERBED 11-27 00:34 → UNDOADMIN 11-27 00:49 → J6S 11-27 02:28
PROVIDERS: ADMIT Internal Medicine; ATTEND Internal Medicine
PROC: 0F20X0Z Change Drainage Device in Liver, External Approach (ICD-10-PCS; principal; 2016-11-27)
DX: T85.79XA Infection and inflammatory reaction due to other internal prosthetic devices, implants and grafts, initial encounter (principal); R65.20 Severe sepsis without septic shock; K75.0 Abscess of liver; M25.511 Pain in right shoulder; I10 Essential (primary) hypertension; Z95.0 Presence of cardiac pacemaker; F17.210 Nicotine dependence, cigarettes, uncomplicated; E87.2 Acidosis
CPT/HCPCS: 36415; 49423; 49424; 71010-TC; 74177-TC; 76000-TC; 76080-TC; 80053; 81003; 82150; 83605; 83690; 83735; 83880; 84484; 85025; 85610; 86850; 86900; 86901; 87040; 87070; 87075; 87086; 87186; 87205; 93005; 93010; 99285-25; C1729; C1769

== ENCOUNTER → 2016-12-06 | Day surgery (SDC) | payer OTHER | END | disposition home or self-care (01) | LOC: JRADIR 10:04 | PROVIDERS: ATTEND Internal Medicine | PROC: 0WPFX0Z Removal of Drainage Device from Abdominal Wall, External Approach (ICD-10-PCS; principal; 2016-12-06) | DX: K75.0 Abscess of liver (principal) | CPT/HCPCS: 49424; 76080-TC ==

== ENCOUNTER 2016-12-17 12:16 | Emergency (ER) | payer OTHER ==
[2016-12-17 12:29] VITALS: TEMP 98.4; BMI 25.2
[2016-12-17 13:24] LABS: BASOPHIL 2.2 % (0-2.0); EOSINOPHIL 11.2 % (0-4.5); MCH 28.7 pg (25.7-33.7); MEAN CELL VOLUME 89.5 fl (80-96); MEAN PLT VOLUME 6.8 fl (7.5-11.1); NEUTROPHILS 46.1 % (42.8-82.8); PLATELET COUNT 360 K/MM3 (134-434); WHITE BLOOD COUNT 10.7 K/mm3 (4.0-10.0)
[2016-12-17 13:28] LABS: URINE APPEARANCE CLEAR; URINE BILIRUBIN NEGATIVE (NEGATIVE); URINE BLOOD NEGATIVE (NEGATIVE); URINE COLOR LTYELLOW; URINE GLUCOSE (UA) NEGATIVE (NEGATIVE); URINE KETONE NEGATIVE (NEGATIVE); URINE LEUK ESTERASE NEGATIVE (NEGATIVE); URINE NITRITE NEGATIVE (NEGATIVE); URINE PROTEIN NEGATIVE (NEGATIVE); URINE UROBILINOGEN NEGATIVE mg/dL (0.2-1.0)
--- NOTE | 2016-12-17 13:36 | PDOC ---
History of Present Illness - General History Source: Patient Exam Limitations: No Limitations - History of Present Illness Initial Comments: 12/17/16 14:23 The patient is a 66 year old male, with a significant past medical history of hypertension, complete AV block(s/p pacemaker in place), GERD, who presents to the emergency department complaining of right flank pain for approximately 2 weeks. The patient reports his pain radiates into the right lateral anterior chest and is pleuritic in nature. Patient reports a subjective fever and chills , but denies any body shaking, headache, or dizziness. He denies any diaphoresis , palpitations, or shortness of breath. Patient reports he was diagnosed with an abscess in the liver, while in [place] in October. At the time, patient reports he was started on ceftriaxone and ciprofloxacin, but he is no longer on this treatment. Patient reports when he returned to the [place] he presented to the ER on 10/22/16 where he was diagnosed with an amoebic liver abscess and was admitted. At the time patient had a catheter in place to drain the abscess. Patient states catheter was removed on 12/06/16. However, since the removal of the catheter patient reports he has had additional RUQ pain and right flank pain. Patient denies any nausea, vomiting, diarrhea, or constipation. He denies any dysuria, hematuria, frequency, or urgency. Allergies: NKDA Past Surgical History: Pacemaker, s/p liver abscess drainage(10/22/16), tonsillectomy, hernia repair Social History: Current everyday smoker. No ETOH or recreational drug use. PCP: Dr. Ya Beasley <Anitra Esquivel - Last Filed: 12/17/16 14:31> <Radha Loomis - Last Filed: 12/17/16 17:10> - General Chief Complaint: Pain Stated Complaint: PAIN Past History <Anitra Esquivel - Last Filed: 12/17/16 14:31> - Past Medical History Cardiac Disorders: Yes (complete heart block) GI Disorders: Yes (GERD) HTN: Yes - Surgical History Cardiac Surgery: Yes (PPM, complete H block) - Psycho/Social/Smoking Cessation Hx Anxiety: No Suicidal Ideation: No Smoking History: Current every day smoker Have you smoked in the past 12 months: Yes Number of Cigarettes Smoked Daily: 4 Information on smoking cessation initiated: No 'Breaking Loose' booklet given: 11/27/16 Hx Alcohol Use: No Drug/Substance Use Hx: No Substance Use Type: None Hx Substance Use Treatment: No <Radha Loomis - Last Filed: 12/17/16 17:10> - Past Medical History Allergies/Adverse Reactions: Allergies Allergy/AdvReac Type Severity Reaction Status Date / Time No Known Allergies Allergy Verified 12/17/16 12:29 Home Medications: Ambulatory Orders Hydroxyzine HCl [Atarax -] 25 mg PO DAILY 10/19/16 Losartan 50Mg/Hctz 12.5MG [Hyzaar -] 1 tab PO DAILY 10/19/16 Omeprazole 20 mg PO DAILY 10/19/16 Diclofenac Sodium [Voltaren -] 50 mg PO TID #42 tablet. 10/29/16 Lidocaine 5% Patch [Lidoderm Patch -] 1 patch TP DAILY #7 patch 12/17/16 Review of Systems - Review of Systems Able to Perform ROS?: Yes Comments:: 12/17/16 14:23 GENERAL/CONSTITUTIONAL: Yes:+ fever, +chills. No weakness. HEAD, EYES, EARS, NOSE AND THROAT: No change in vision. No ear pain or discharge. No sore throat. CARDIOVASCULAR: Yes: +pleuritic chest pain. No shortness of breath. RESPIRATORY: No cough, wheezing, or hemoptysis. GASTROINTESTINAL: Yes: +RUQ pain. No nausea, vomiting, diarrhea or constipation. GENITOURINARY: Yes: +Right flank pain. No dysuria, frequency, or change in urination. MUSCULOSKELETAL: No joint or muscle swelling or pain. No neck pain. SKIN: No rash NEUROLOGIC: No headache, vertigo, loss of consciousness, or change in strength/ sensation. ENDOCRINE: No increased thirst. No abnormal weight change. HEMATOLOGIC/LYMPHATIC: No anemia, easy bleeding, or history of blood clots. ALLERGIC/IMMUNOLOGIC: No hives or skin allergy. <Anitra Esquivel - Last Filed: 12/17/16 14:31> *Physical Exam - Vital Signs Last Vital Signs Temp Pulse Resp BP Pulse Ox 98.4 F 100 H 18 122/89 100 12/17/16 12:26 12/17/16 12:26 12/17/16 12:26 12/17/16 12:26 12/17/16 12:26 - Physical Exam Comments: 12/17/16 14:31 12/17/16 14:23 GENERAL: Awake, alert, and fully oriented, in no acute distress HEAD: No signs of trauma EYES: PERRLA, EOMI, sclera anicteric, conjunctiva clear ENT: Auricles normal inspection, hearing grossly normal, nares patent, oropharynx clear without exudates. Moist mucosa NECK: Normal ROM, supple, no lymphadenopathy, JVD, or masses LUNGS: Diminished breath sounds at the right base. Left base normal. No wheezes , and no crackles HEART: Regular rate and rhythm, normal S1 and S2, no murmurs, rubs or gallops ABDOMEN: Mild tenderness to palpation to the RUQ, but no guarding or rebound. Well healing incision site from the abscess drainage. Soft, normoactive bowel sounds. No masses. BACK: No CVA tenderness EXTREMITIES: Tenderness over the 10th rib. Normal range of motion, no edema. No clubbing or cyanosis. No cords, erythema, or tenderness NEUROLOGICAL: Cranial nerves II through XII grossly intact. Normal speech, normal gait SKIN: Mild rash that is papular along the drain site that is blanchable, but no hive or purpura noted. Incision site is clean, dry, intact, and healed. No other rashes or lesions noted. <Anitra Esquivel - Last Filed: 12/17/16 14:31> - Vital Signs Last Vital Signs Temp Pulse Resp BP Pulse Ox 98.4 F 100 H 18 122/89 100 12/17/16 12:26 12/17/16 12:26 12/17/16 12:26 12/17/16 12:26 12/17/16 12:26 <Radha Loomis - Last Filed: 12/17/16 17:10> ED Treatment Course - LABORATORY CBC & Chemistry Diagram: 12/17/16 13:17 12/17/16 13:17 - ADDITIONAL ORDERS Additional order review: Laboratory Results 12/17/16 12/17/16 12/17/16 13:17 13:17 13:17 INR 1.00 PTT (Actin FS) 30.4 Sodium 141 Potassium 4.1 Chloride 104 Carbon Dioxide 28 Anion Gap 9 BUN 26 H D Creatinine 1.0 D Creat Clearance w eGFR > 60 Random Glucose 87 Calcium 9.3 Total Bilirubin 0.3 D AST 18 ALT 25 D Alkaline Phosphatase 111 D Total Protein 8.5 H Albumin 3.1 L Urine Color Ltyellow Urine Appearance Clear Urine pH 5.0 Urine Protein Negative Urine Glucose (UA) Negative Urine Ketones Negative Urine Blood Negative Urine Nitrite Negative Urine Bilirubin Negative Urine Urobilinogen Negative Ur Leukocyte Esterase Negative 12/17/16 13:17 RBC 4.47 MCV 89.5 MCHC 32.0 RDW 17.0 H MPV 6.8 L D Neutrophils % 46.1 Lymphocytes % 31.6 Monocytes % 8.9 Eosinophils % 11.2 H Basophils % 2.2 H <Anitra Esquivel - Last Filed: 12/17/16 14:31> - LABORATORY CBC & Chemistry Diagram: 12/17/16 13:17 12/17/16 13:17 - RADIOLOGY Radiology Studies Ordered: Category Date Time Status CHEST PA & LAT [RAD] Stat Radiology 12/17/16 12:58 Completed <Radha Loomis - Last Filed: 12/17/16 17:10> Medical Decision Making - Medical Decision Making 12/17/16 16:00 a/p: 66yo male with r sided cp and abd pain -recent intrahepatic drainage for abscess -pleural effusion on xray -will obtain labs, ct c/a/p -concern for parapneumonic effusion with recent hospitalization vs. empyema vs hepatic infection with referred pain and reactive effusion 12/17/16 17:04 discussed lab and imaging results. Pt will need to follow up with Dr. Mora as an oupt. Will give lidoderm patch and incentive spirometry. Pt with small pleural effusion and atelectasis on ct. No pna. No infectious symptoms. No fever. No elevated WBC. Discussed all reasons to reutrn to the ED and need for follow up. DIscussed incidental finding of pulmonary nodule on ct. pt verbalizes all understanding. Stable for d/c to home. <Radha Loomis - Last Filed: 12/17/16 17:10> *DC/Admit/Observation/Transfer - Attestations Scribe Attestion: 12/17/16 14:25 Documentation prepared by Anitra Esquivel, acting as medical recruiter for Radha Loomis DO. <Anitra Esquivel - Last Filed: 12/17/16 14:31> - Discharge Dispostion Admit: No - Attestations Physician Attestion: 12/17/16 13:36 I, Dr. Radha Loomis, DO, attest that this document has been prepared under my direction and personally reviewed by me in its entirety. I further attest, that it accurately reflects all work, treatment, procedures and medical decision -making performed by me. <Radha Loomis - Last Filed: 12/17/16 17:10> Diagnosis at time of Disposition: Pleural effusion, Atelectasis, Flank pain - Discharge Dispostion Disposition: HOME Condition at time of disposition: Stable - Prescriptions Prescriptions: Lidocaine 5% Patch [Lidoderm Patch -] 1 patch TP DAILY #7 patch - Referrals Referrals: Ya Islas MD [Staff Physician] - - Patient Instructions Printed Discharge Instructions: Atelectasis, Pleural Effusion Additional Instructions: Please follow up with Dr. Miramontes. Please use the incentive spirometer 10x every hour you are awake. Please use all meds as prescribed. Please return to the ED with any further concerns.
[2016-12-17 13:40] LABS: ACTIVATED PTT 30.4 SECONDS (26.9-34.4)
[2016-12-17 13:52] LABS: ALBUMIN 3.1 g/dl (3.4-5.0); ALK PHOS 111 U/L (45-117); ANION GAP 9 (8-16); BILIRUBIN,TOTAL 0.3 mg/dL (0.2-1.0); CALCIUM 9.3 mg/dL (8.5-10.1); CO2 28 mmol/L (21-32); GLUCOSE,RANDOM 87 mg/dL (74-106); SGOT/AST 18 U/L (15-37); SGPT/ALT 25 U/L (12-78); TOT PROT 8.5 g/dl (6.4-8.2)
[2016-12-17] MEDS ORDERED: SODIUM CHLORIDE 0.9% 1000 ML INFUS.BAG IV ONE (14:28)
[2016-12-17] MEDS ORDERED: LIDOCAINE 5% TOPICAL PATCH TP ONE (17:03)
[2016-12-17] MEDS ORDERED: ACETAMINOPHEN 325 MG TABLET (FP) PO ONE (17:04)
[2016-12-17] MEDS ORDERED: ACETAMINOPHEN 325 MG TABLET (FP) ONE (17:07)
[2016-12-17] MEDS ORDERED: LIDOCAINE 5% TOPICAL PATCH ONE (17:07)
[2016-12-17 17:31] VITALS: BP 145/94; PULSE 95
--- NOTE | 2016-12-17 17:54 | HOSP ---
Subjective - Review of Symptoms Subjective: Spoke to ED attending regarding concern for admission. Pt reported to ER with pleuritic CP, due to recent hospitalization CT chest and abdomen was done and reported that liver abscess is larger than previously. Spoke with Dr Olson, unless there will be drainage by IR there is no indication for abx Spoke to Dr Campos who states that there is no rim enhancing lesion and likely a sterile collection, that symptoms are due to pleural effusion and atelectasis which are reactive process from previous abscess, that unless pt develops fever or chills that there is no indication for drainage. Relayed this information to ER attending. SInce no intervention required no indication for hospitalization. Physical Examination Vital Signs: Vital Signs Temperature 98.4 F 12/17/16 12:26 Pulse Rate 95 H 12/17/16 17:30 Respiratory Rate 16 12/17/16 17:30 Blood Pressure 145/94 12/17/16 17:30 O2 Sat by Pulse Oximetry (%) 97 12/17/16 17:30 Labs: CBC, BMP 12/17/16 13:17 12/17/16 13:17
--- NOTE | 2016-12-17 21:26 | EKG ---
Test Reason : Blood Pressure : / mmHG Vent. Rate : 084 BPM Atrial Rate : 084 BPM P-R Int : 220 ms QRS Dur : 168 ms QT Int : 456 ms P-R-T Axes : 033 072 007 degrees QTc Int : 538 ms Atrial-sensed ventricular-paced rhythm ABNORMAL ECG WHEN COMPARED WITH ECG OF 26-NOV-2016 22:12, VENT. RATE HAS DECREASED BY 16 BPM Confirmed by KAYLI OCAMPO MD ([id number]) on 12/17/2016 9:25:57 PM Referred By: Confirmed By:KAYLI OCAMPO MD
[2016-12-17] MEDS ORDERED: LIDOCAINE PATCH REMOVAL MC SCH (22:00)
== END 2016-12-17 18:12 | disposition home or self-care (01) ==
LOC: JER 12:16
DX: J90 Pleural effusion, not elsewhere classified (principal); J98.11 Atelectasis; I10 Essential (primary) hypertension; K21.9 Gastro-esophageal reflux disease without esophagitis; I44.2 Atrioventricular block, complete; Z95.0 Presence of cardiac pacemaker
CPT/HCPCS: 36415; 71020-TC; 71275-TC; 74177-TC; 80053; 81003; 85025; 85610; 85730; 93005; 93010; 99284-25

== ENCOUNTER 2017-02-06 13:13 | Emergency (ER) | payer OTHER ==
[2017-02-06 13:17] VITALS: BMI 27.3
--- NOTE | 2017-02-06 15:24 | PDOC ---
History of Present Illness - General Chief Complaint: Shortness of Breath Stated Complaint: SOB Time Seen by Provider: 02/06/17 14:40 History Source: Patient Exam Limitations: No Limitations - History of Present Illness Initial Comments: 02/06/17 15:20 Patient is a 66yo M with a PMH of HTN, s/p pacemaker, presented today with worsening SOB that started 2 days ago. He says he has been feeling bad the past few weeks. Nothing alleviates it and nothing makes it worse. He denies dyspnea on exertion and says the SOB occurs at random times. He said he was admitted a few times because of a liver abscess and doesn't know whether it has resolved or not. He is following up with ID for his liver abscess. He also says he has associated headaches and some dizziness whenever he stands up too quickly. He also noticed sores on his lips with swelling of his neck. He went to his doctor who prescribed him a medication (does not know name). He denies cough, wheezing , allergies, chest pain, abdominal pain, fever, urinary problems. 02/06/17 15:24 02/06/17 15:29 02/06/17 15:32 Timing/Duration: reports: getting worse Past History - Past Medical History Allergies/Adverse Reactions: Allergies Allergy/AdvReac Type Severity Reaction Status Date / Time No Known Allergies Allergy Verified 02/06/17 13:17 Home Medications: Ambulatory Orders Hydroxyzine HCl [Atarax -] 25 mg PO DAILY 10/19/16 Losartan 50Mg/Hctz 12.5MG [Hyzaar -] 1 tab PO DAILY 10/19/16 Omeprazole 20 mg PO DAILY 10/19/16 Diclofenac Sodium [Voltaren -] 50 mg PO TID #42 tablet. 10/29/16 Cardiac Disorders: Yes (complete heart block) COPD: No GI Disorders: Yes (GERD) HTN: Yes Liver Disease: Yes - Surgical History Cardiac Surgery: Yes (PPM, complete H block) - Suicide/Smoking/Psychosocial Hx Smoking History: Current every day smoker Have you smoked in the past 12 months: Yes Number of Cigarettes Smoked Daily: 2 Information on smoking cessation initiated: No 'Breaking Loose' booklet given: 11/27/16 Hx Alcohol Use: Yes (SOCIAL) Drug/Substance Use Hx: No Substance Use Type: None Hx Substance Use Treatment: No Respiratory Specific PMHX - Complaint Specific PMHX Angina: No Bronchitis: No Review of Systems - Review of Systems Able to Perform ROS?: Yes Constitutional: No: Chills, Fever HEENTM: No: Blurred Vision Respiratory: Yes: Shortness of Breath. No: Cough, Wheezing, Productive cough Cardiac (ROS): Yes: Lightheadedness (when getting up quickly). No: Edema, Palpitations, Syncope ABD/GI: No: Nausea, Vomiting : No: Burning, Dysuria, Frequency Neurological: Yes: Headache. No: Numbness, Tingling *Physical Exam - Vital Signs Last Vital Signs Temp Pulse Resp BP Pulse Ox 98.8 F 106 H 20 120/64 98 02/06/17 13:14 02/06/17 13:14 02/06/17 13:14 02/06/17 13:14 02/06/17 13:14 - Physical Exam Comments: 02/06/17 15:34 General: A/o x 3, comfortable HEENT: EOMI, PERRLA, mutliple ulcers on the lips Neck: LAD HEART: tachy, no Murmurs or rubs LUNGS: CTA B/L, no rales rhonchi or wheezing ABD: nt, nd, +bs, soft, no hepatomegaly EXT: no rashes, bruises, 2+ Dp pulses 02/06/17 15:41 ED Treatment Course - LABORATORY CBC & Chemistry Diagram: 02/06/17 15:25 02/06/17 15:35 - RADIOLOGY Radiology Studies Ordered: Category Date Time Status CHEST X-RAY PORTABLE* [RAD] Stat Radiology 02/06/17 15:09 Ordered Medical Decision Making - Medical Decision Making 02/06/17 15:41 #SOB -r/o infection, PE BNP Trops CXR D- Dime U/A CBC, CMP Lactic acid 02/06/17 16:59 D-dimer + CT chest ordered Liver US to r/o abscess (history of liver abscess) 02/06/17 18:55 *DC/Admit/Observation/Transfer Diagnosis at time of Disposition: Shortness of breath
[2017-02-06 15:54] LABS: MCH 29.5 pg (25.7-33.7); MCHC 33.5 g/dl (32.0-35.9); MEAN CELL VOLUME 88.1 fl (80-96); PLATELET COUNT 184 K/MM3 (134-434); RDW 14.6 % (11.9-15.9); WHITE BLOOD COUNT 6.7 K/mm3 (4.0-10.0)
[2017-02-06 16:06] LABS: ALBUMIN 3.4 g/dl (3.4-5.0); ANION GAP 10 (8-16); BILIRUBIN,TOTAL 0.3 mg/dL (0.2-1.0); CALCIUM 8.6 mg/dL (8.5-10.1); CO2 27 mmol/L (21-32); CPK 57 IU/L (39-308); GLUCOSE,RANDOM 93 mg/dL (74-106); SGOT/AST 44 U/L (15-37); SGPT/ALT 46 U/L (12-78); TOT PROT 7.9 g/dl (6.4-8.2)
[2017-02-06 16:09] LABS: ALK PHOS 93 U/L (45-117); TROPONIN I 0.03 ng/ml (0.00-0.05)
[2017-02-06 16:53] VITALS: TEMP 98
--- NOTE | 2017-02-06 17:20 | PDOC ---
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 Pt denies CP. He states that his symptoms began 3 days ago. The SOB is not triggered by exertion and seems to come on randomly and resolve spontaneously. Pt denies any symptoms currently. Denies F/C/cough. Denies leg swelling. Denies recent travel/immobilization. - Physicial Exam PE: 02/06/17 17:18 "GENERAL: Awake, alert, and fully oriented, in no acute distress HEAD: No signs of trauma EYES: PERRLA, EOMI, sclera anicteric, conjunctiva clear ENT: Auricles normal inspection, hearing grossly normal, nares patent, oropharynx clear without exudates. Moist mucosa NECK: Nontender, no stepoffs, Normal ROM, supple, no lymphadenopathy, JVD, or masses LUNGS: Breath sounds equal, clear to auscultation bilaterally. No wheezes, and no crackles HEART: Regular rate and rhythm, normal S1 and S2, no murmurs, rubs or gallops ABDOMEN: Soft, nontender, normoactive bowel sounds. No guarding, no rebound. No masses EXTREMITIES: Normal range of motion, no edema. No clubbing or cyanosis. No cords, erythema, or tenderness NEUROLOGICAL: Cranial nerves II through XII intact. 5/5 strength and sensation in all extremities, Normal speech, normal gait SKIN: Warm, Dry, normal turgor, no rashes or lesions noted. " - Medical Decision Making 02/06/17 17:18 66 M with intermittent SOB that is not exertional and not associated with CP. Will r/o PE given recent hospital admission. ACS is unlikely given unchanged EKG , but will send troponin. Pt with no infectious symptoms at this time, but will r/o PNA with CXR. Will also obtain RUQ sono to r/o recurrent liver abscess given his symptoms are non-specific. - Labs, ddimer, trop - CXR - RUQ sono - CTPE if indicated 02/06/17 17:49 Labs notable for +Ddimer. CTPE ordered. Pt signed out to night team at 5PM, pending CT scan, RUQ US, normalization of HR and re-evaluation. Case discussed in detail with oncoming Emergency Physician including history, physical exam and ancillary studies. Oncoming Emergency Physician has assumed care for the patient and will complete the evaluation and treatment. Patient is aware of the plan.
[2017-02-06 17:58] LABS: URINE APPEARANCE CLEAR; URINE BILIRUBIN NEGATIVE (NEGATIVE); URINE BLOOD NEGATIVE (NEGATIVE); URINE COLOR LTYELLOW; URINE GLUCOSE (UA) NEGATIVE (NEGATIVE); URINE KETONE NEGATIVE (NEGATIVE); URINE NITRITE NEGATIVE (NEGATIVE); URINE PROTEIN NEGATIVE (NEGATIVE); URINE UROBILINOGEN NEGATIVE mg/dL (0.2-1.0)
[2017-02-06 18:52] VITALS: BP 126/90; PULSE 101
[2017-02-06 20:59] LABS: URINE LEUK ESTERASE Negative (NEGATIVE)
--- NOTE | 2017-02-06 22:05 | PDOC ---
*Physical Exam - Vital Signs Last Vital Signs Temp Pulse Resp BP Pulse Ox 98.0 F 101 H 18 126/90 98 02/06/17 18:51 02/06/17 18:51 02/06/17 18:51 02/06/17 18:51 02/06/17 18:51 - Physical Exam Comments: 02/06/17 22:01 Patient endorsed to me by Dr. Arias. Patient is 66-year-old male with history of recently drained amoebic liver abscess, pacemaker placement for rheumatic heart disease who presented with intermittent shortness of breath over the past several days that is increased in severity and frequency, at rest, without any exertional component, with mild intermittently productive cough. Patient's EKG was noted to be paced. D-dimer was elevated and a CTA of chest was obtained which showed no evidence of pulmonary embolism to the subsegmental arteries. Right upper quadrant ultrasound showed a minimally decreased fluid collection consistent with a previously drained abscess. Reevaluation of the patient revealed several encrusted and vesicular lesions to the the area oral area and right nostril consistent with HSV. We will administer Valtrex and will discharge with infectious disease follow-up. I do not suspect ACS or acute endocarditis at this time. ED Treatment Course - LABORATORY CBC & Chemistry Diagram: 02/06/17 15:25 02/06/17 15:35 - ADDITIONAL ORDERS Additional order review: Laboratory Results 02/06/17 02/06/17 02/06/17 17:50 15:35 15:25 D-Dimer 424 H Sodium 139 Potassium 3.6 Chloride 102 Carbon Dioxide 27 Anion Gap 10 BUN 14 D Creatinine 1.0 Creat Clearance w eGFR > 60 Random Glucose 93 Lactic Acid Calcium 8.6 Total Bilirubin 0.3 AST 44 H D ALT 46 D Alkaline Phosphatase 93 Creatine Kinase 57 Troponin I 0.03 D B-Natriuretic Peptide 187.91 H Total Protein 7.9 Albumin 3.4 Urine Color Ltyellow Urine Appearance Clear Urine pH 5.0 Ur Specific [place] 1.016 Urine Protein Negative Urine Glucose (UA) Negative Urine Ketones Negative Urine Blood Negative Urine Nitrite Negative Urine Bilirubin Negative Urine Urobilinogen Negative Ur Leukocyte Esterase Negative 02/06/17 15:25 D-Dimer Sodium Potassium Chloride Carbon Dioxide Anion Gap BUN Creatinine Creat Clearance w eGFR Random Glucose Lactic Acid 1.8 Calcium Total Bilirubin AST ALT Alkaline Phosphatase Creatine Kinase Troponin I B-Natriuretic Peptide Total Protein Albumin Urine Color Urine Appearance Urine pH Ur Specific [place] Urine Protein Urine Glucose (UA) Urine Ketones Urine Blood Urine Nitrite Urine Bilirubin Urine Urobilinogen Ur Leukocyte Esterase 02/06/17 15:25 RBC 5.07 MCV 88.1 MCHC 33.5 RDW 14.6 D MPV 8.0 D *DC/Admit/Observation/Transfer Diagnosis at time of Disposition: SOB (shortness of breath), Herpes simplex virus (HSV) infection - Discharge Dispostion Disposition: HOME Condition at time of disposition: Stable - Referrals Referrals: Ya Islas MD [Primary Care Provider] - Tereso Singleton MD [Staff Physician] - - Patient Instructions Printed Discharge Instructions: DI for Shortness of Breath, Cold Sores - Post Discharge Activity
--- NOTE | 2017-02-07 17:07 | EKG ---
Test Reason : Blood Pressure : / mmHG Vent. Rate : 091 BPM Atrial Rate : 091 BPM P-R Int : 220 ms QRS Dur : 168 ms QT Int : 422 ms P-R-T Axes : 041 066 028 degrees QTc Int : 519 ms Atrial-sensed ventricular-paced rhythm with prolonged AV conduction ABNORMAL ECG WHEN COMPARED WITH ECG OF 17-DEC-2016 13:41, VENT. RATE HAS INCREASED BY 7 BPM Confirmed by NIRAJ SINGH, JOSÉ ([id number]) on 02/07/2017 5:07:11 PM Referred By: Confirmed By:JOSÉ HEALY MD
== END 2017-02-06 23:14 | disposition home or self-care (01) ==
LOC: JER 13:13
DX: R06.02 Shortness of breath (principal)
CPT/HCPCS: 36415; 71010-TC; 71275-TC; 76705-TC; 80053; 81003; 82550; 83605; 83880; 84484; 85027; 85379; 93005; 93010; 99283-25